=== PATIENT | female | born 1980 | race Caucasian/White ===

== ENCOUNTER → 2018-01-29 | Outpatient (CLI) | payer OTHER ==
--- NOTE | 2018-01-30 06:11 | PAP/PSG TECHNICIAN REPORT ---
[facility] Computer System Specialist Polysomnogram Report Study name: None Report date: 01/30/2018 Study date: 01/29/2018 Referring Physician: Dr. Marcelina Cortez M.D. Name: RADHA SALAZAR Interpreting Physician: Darren Haddad M.D. Date of : 1980 Computer System Specialist: Colleen Penn [facility]. Sex: Female Age: 37 Study Type: PSG Weight: 262 lbs 16 in Height: 37 years, Height 5' 7" Neck Circum: BMI: 41.03 Medications: ATORVASTATIN 40 MG, ACONAZOLE NITRATE 1% CREAM, PROZAC 20 MG, FUROSEMIDE 40 MG, LISINOPRIL 10 MG, METOPROLOL 50 MG, NICODERM CQ 14 MG/24 HR, WARFARIN 5 MG Patient History 37 yr-old female here for a baseline/modified split study (to introduce CPAP if AHI exceeds 15). She has a history of snoring, witnessed apneas, and daytime sleepiness. Her [place] scale is 11. The test was started on room air. ETCO2 testing is included in this study. Room 1 Parameters Monitored NPSG: E1-M2, E2-M1, Fp1-M2, Fp2-M1, F3-M2, F4-M2, F4-M1, C3-M2, C4-M2, C4-M1, O1-M2, O2-M2, O2-M1, T3-M2, T4-M1, P3-M2, P4-M1, CHIN1, CHIN2, HR, EKG, Legs, PFLOW, SNOR, FLOW, CFLOW, Tidal Volume, THOR, ABDO, SpO2, PLTH, CPRESS, ETCO2 Wave, ETCO2, pH Sleep Architecture Sleep Stages Time at Lights Off 10:16:54 PM STAGES Time (min.) TST (%) Time at Lights On 5:19:54 AM Wake 191.5 -- Total Recording Time (TRT) 423.00 min. N1 62.5 27 Total Sleep Period (TSP) 330.0 min. N2 104.5 45 Total Sleep Time (TST) 231.5min. N3 35.0 15 Awake Time 191.5 min. REM 29.5 13 Wake after Sleep Onset 121.5 min. Sleep Efficiency (SE) 55 % Sleep Onset Latency (TONY) 70.0 min. Number of Stage 1 Shifts None Awakenings 19 Stage Changes 71 Number of REM periods 4 REM 29.5 13 REM Latency 117.5 min. NREM 202.0 87 Body Position Analysis Supine Right Left Side Prone Vertical Total Sleep Time (min.) 131.5 38.0 107.5 145.50 36.5 0.0 Total Sleep Time (%) 29% 16% 46% 63 8% N/A% Total Sleep Time REM (min.) 8.5 0.0 21.0 None 0.0 0.0 Total Sleep Time NREM (min.) 58.0 38.0 86.5 None 19.5 0.0 Intermittent Wake (min.) 65.0 27.3 82.2 None 17.0 0.0 Total Sleep Period (%) 27% None None None None None Arousals Myoclonus (PLM) * Events Count Index Events Count Index Spontaneous 15 4 Events Awake (PLMW) 253 79.3 Respiratory 32 8.3 Events Asleep w/ Arousal (PLMA) 29 7.5 PLM 29 8 Events Asleep w/o Arousal (PLMS) 296 76.7 Snoring 10 3 Total Asleep 325 84.2 Total 86 22 Total 578 82 Respiratory Analysis * CA OA MA CH H RERA Total Count 3 14 4 0 48 6 69 Index 0.8 3.6 1.0 0 12.4 2 19.4 Mean Duration 17.9 20.2 23.5 0.00 18.0 17.1 18.6 Longest Duration 22.4 44.6 32.2 0.00 32.2 20.3 44.6 Respiratory Event Summary Total Supine ~Supine Right Left Prone REM NREM Apneas Count 21 20 1 0 1 0 3 18 Index 5.4 18 0 0.0 0.6 0 6 5 Hypopneas (4% Desat) Count 48 37 11 0 9 2 10 38 Index 12.4 33.4 4 0.0 5.0 6.2 20.3 11.3 Apneas & All Hypopneas Count 69 57 12 0 10 2 13 56 Index 17.9 51 4 0 6 6 26.4 16.6 Respiratory Events (Supervisor [employer]+All Hyp+RERA) Count 69 60 15 0 13 2 13 56 Index 19.4 54 5 0.0 7.3 6.2 26.4 18.4 Respiratory Related Arousal Count 32 60 4 0 4 0 7 25 Index 8.3 25 1 0 2 0 14 7 Snoring Analysis Supine Right Left Prone REM NREM Total Snore duration 32.1 min Snores count 293 185 543 174 67 1,128 1,195 Snore mean duration 1.6 Sec Snores index 264 292 303 535 136.3 335.0 309.7 TST with snoring (%) 13.9% SpO2 Analysis Total REM NREM Awake <50% 0.0 min. 0.0 min. 0.0 min. 0.0 min. 51 - 60% 0.0 min. 0.0 min. 0.0 min. 0.0 min. 61 - 70% 0.0 min. 0.0 min. 0.0 min. 0.0 min. 71 - 80% 1.6 min. 1.6 min. 0.0 min. 0.0 min. 81 - 90% 131.4 min. 23.1 min. 83.6 min. 24.7 min. 91 - 100% 278.7 min. 4.7 min. 118.4 min. 155.5 min. Average 91 87 91 92 Minimum SpO2 74 74 84 84 Desaturation Event Index 14.8 36.6 18.4 8.1 # Desat. Events below 89% 46 17 24 5 Time(%) with Saturation below 89% 7.5 4.6 2.8 0.2 Time(min.) with Saturation below 89% 31.1 18.8 11.6 0.7 Heart Rate Analysis End Tidal CO2 Analysis Min (bpm) Max (bpm) Average (bpm) TSP (mins) % of TSP Awake 53 127 80 Above 55 mmHg 0.0 0.0 NREM 52 95 78 50-55 mmHg 0.0 0.0 REM 50 100 76 45-50 mmHg 0.0 0.0 Overall 50 100 78 40-45 mmHg 6.0 2.6 35-40 mmHg 48.1 20.8 30-35 mmHg 11.4 4.9 Average ETCO2 0.0 Supplemental O2 Values Minimum O2 level: None Value Start Time End Time Computer System Specialist Comments Ms. Salazar slept in the right, left, supine and prone positions. Cardiac arrhythmias were noted (please refer to the printouts). PLMs were noted. No bruxism noted. Snoring was noted and scored as a 2 on a scale of 1 through 5. (0=no snoring, 5=snoring loud enough to be heard through a closed door or down the bullard way) She did not meet specific Split-Night criteria during the diagnostic portion of this study. She awoke to use the restroom two times during the night. Ms. Salazar stated that she slept poorly. The final report will be interpreted and signed by a sleep physician. The completed physician report will then be placed in the patient medical record. Therapy (cm H2O) 0 TIB (min.) 423.0 TST (min.) 231.5 Sleep Onset (min.) 70.0 REM Onset From Sleep (min.) 117.5 Sleep Efficiency % 55 Wakefulness (%) 45 Wakefulness (min.) 191.5 NREM 1 (%) 27 NREM 1 (min.) 62.5 NREM 2 (%) 45 NREM 2 (min.) 104.5 NREM 3 (%) 15 NREM 3 (min.) 35.0 REM (%) 13 REM (min.) 29.5 # Arousals 86 Arousal Index 22 # Snore 1,195 Snore Index 309.7 AHI 17.9 AHI Supine 51 AHI Non-Supine 4 NREM AHI 16.6 REM AHI 26.4 RDI 19.4 # Obstructive Apnea 14 # Central Apnea 3 # Mixed Apnea 4 # Hypopneas 48 RERAs 6 Total Respiratory Events 76 Time Below SpO2 89% (min.) 30.4 Mean NREM SpO2 (%) 91 Mean REM SpO2 (%) 87 Mean Sleep SpO2 (%) 90 Min NREM SpO2 (%) 84 Min REM SpO2 (%) 74 Position Supine (min.) 131.5 Position Non-supine (min.) 165.0 LM Index Sleep 84.2 LM Index NREM 90.0 LM Index REM 44.7 Mean Heart Rate (bpm) 78 Min Heart Rate (bpm) 50
--- NOTE | 2018-01-31 11:05 | POLYSOMNOGRAPH REPORT ---
CLINICAL DATA: A 37-year-old female with BMI of [address] Cortez for a possible split night study with a history of snoring, witnessed apnea, and daytime sleepiness. Her [place] sleepiness score is 11/24. SLEEP ARCHITECTURE: Total sleep period was 330 minutes. Total sleep time was 231.5 minutes divided between 202 minutes of non-REM sleep and 29.5 minutes of REM sleep. Sleep latency was delayed at 70 minutes. REM latency was 117.5 minutes. Sleep efficiency was reduced to 55%. Wake after sleep onset was elevated at 121.5 minutes. Sleep consisted of stage N1 27%, stage N2 45%, stage N3 15%, and REM 13%. AROUSAL DATA: 86 arousals were recorded for an index of 22 per hour. 32 were due to respiratory events. 10 were due to snoring events. PLM DATA: Severe elevation of limb movements during sleep were noted. There were 325 limb movements during sleep noted for an index of 84.2 per hour with arousal index of 7.5 per hour. RESPIRATORY DATA: Moderate sleep apnea was documented. The AHI was 17.9. The RDI was 19.4. There were 3 central, 14 obstructive, and 4 mixed apneic episodes. The longest apneic episode was 44.6 seconds. There were 48 hypopneic episodes. The longest duration of hypopnea was 32.2 seconds. There were 6 RERAs. The longest RERA was 20.3 seconds. OXIMETRY DATA: Nocturnal hypoxemia was seen. Oxygen josef was 74% during REM. Mean saturation was 91%. Time below 89% was 31 minutes. EKG: Heart ranged from 52-100 beats per minute. Occasional PACs were noted. ALL AROUND PATTERNMAKER'S COMMENTS: The patient slept in the right, left, supine, and prone positions. PLMs were noted throughout the night. Snoring was mild, rated 2 on a scale of 1-5. The patient did not meet split night criteria early enough during the study to initiate CPAP. IMPRESSION: Moderate sleep apnea/hypopnea with an AHI of 17.9 and an RDI of 19.4 with nocturnal hypoxemia. The patient also had significant PLMD. RECOMMENDATIONS: The patient may benefit from a repeat sleep study with CPAP, use of auto CPAP, or use of an oral appliance. Clinical correlation is needed. GAVIN
== END | disposition home or self-care (01) ==
LOC: C.NEUR 21:00
PROVIDERS: ATTEND Internal Medicine
DX: G47.33 Obstructive sleep apnea (adult) (pediatric) (principal)

== ENCOUNTER → 2018-05-15 | Outpatient (CLI) | payer OTHER ==
--- NOTE | 2018-05-16 05:48 | PAP/PSG TECHNICIAN REPORT ---
[facility] Cabin Agent Polysomnogram Report Study name: None Report date: 05/16/2018 Study date: 05/15/2018 Referring Physician: Dr. Marcelina Cortez M.D. Name: RADHA SALAZAR Interpreting Physician: Marcelina Cortez M.D. Date of : 1980 Cabin Agent: CÉSAR Mercer. Sex: Female Age: 38 StudyType: PSG PAP Weight: 260 lbs Height: 38 years, Height 5' 7" Neck Circum:16 inches BMI: 40.72 Medications: Lipitor 40mg, Prozac 20mg, Lasix 40mg, Prinivil 10mg, Lopressor 50MEQ, Warfarin 5mgNicoderm CQ Patient History Study started on room air with 4cwp cpap in room #8. 38 yr old female here tonight for a new titration study. She has a history of HTN, anxiety, atrial flutter and LINSEY. PSG showed moderate LINSEY. Her ESS=10. Neck circ=16inches. Parameters Monitored NPSG: E1-M2, E2-M1, Fp1-M2, Fp2-M1, F3-M2, F4-M2, F4-M1, C3-M2, C4-M2, C4-M1, O1-M2, O2-M2, O2-M1, T3-M2, T4-M1, P3-M2, P4-M1, CHIN1, CHIN2, HR, EKG, Legs, PFLOW, SNOR, FLOW, CFLOW, Tidal Volume, THOR, ABDO, SpO2, PLTH, CPRESS, ETCO2 Wave, ETCO2, pH Sleep Architecture Sleep Stages Time at Lights Off 9:52:47 PM STAGES Time (min.) TST (%) Time at Lights On 5:42:47 AM Wake 154.5 -- Total Recording Time (TRT) 470.00 min. N1 7.5 2 Total Sleep Period (TSP) 418.5 min. N2 158.0 50 Total Sleep Time (TST) 315.5min. N3 86.5 27 Awake Time 154.5 min. REM 63.5 20 Wake after Sleep Onset 103.0 min. Sleep Efficiency (SE) 67 % Sleep Onset Latency (TONY) 51.5 min. Number of Stage 1 Shifts None Awakenings 20 Stage Changes 55 Number of REM periods 1 REM 63.5 20 REM Latency 355.0 min. NREM 252.0 80 Body Position Analysis Supine Right Left Side Prone Vertical Total Sleep Time (min.) 211.9 176.0 0.0 176.00 0.0 0.0 Total Sleep Time (%) 44% 56% 0% 56 0% N/A% Total Sleep Time REM (min.) 0.0 63.5 0.0 None 0.0 0.0 Total Sleep Time NREM (min.) 139.5 112.5 0.0 None 0.0 0.0 Intermittent Wake (min.) 72.4 44.3 37.8 None 0.0 0.0 Total Sleep Period (%) 46% None None None None None Arousals Myoclonus (PLM) * Events Count Index Events Count Index Spontaneous 8 2 Events Awake (PLMW) 158 61.4 Respiratory 5 1.0 Events Asleep w/ Arousal (PLMA) 10 1.9 PLM 7 2 Events Asleep w/o Arousal (PLMS) 130 24.7 Snoring 3 1 Total Asleep 140 26.6 Total 23 4 Total 298 38 Respiratory Analysis * CA OA MA CH H RERA Total Count 3 3 1 0 5 1 12 Index 0.6 0.6 0.2 0 1.0 0 2.5 Mean Duration 17.1 15.7 18.1 0.00 28.6 18.6 21.4 Longest Duration 17.5 19.2 18.1 0.00 18.1 18.6 41.3 Respiratory Event Summary Total Supine ~Supine Right Left Prone REM NREM Apneas Count 7 3 4 4 N/A N/A 0 7 Index 1.3 1 1 1.4 N/A N/A 0 2 Hypopneas (4% Desat) Count 5 4 1 1 N/A N/A 0 5 Index 1.0 1.7 0 0.3 N/A N/A 0.0 1.2 Apneas & All Hypopneas Count 12 7 5 5 N/A N/A 0 12 Index 2.3 3 2 2 N/A N/A 0.0 2.9 Respiratory Events (Lead Technical Architect+All Hyp+RERA) Count 12 8 5 5 N/A N/A 0 12 Index 2.5 3 2 1.7 N/A N/A 0.0 3.1 Respiratory Related Arousal Count 5 8 2 2 N/A N/A 0 5 Index 1.0 1 1 1 N/A N/A 0 1 Snoring Analysis Supine Right Left Prone REM NREM Total Snore duration 15.3 min Snores count 717 144 N/A N/A 6 855 861 Snore mean duration 1.1 Sec Snores index 308 49 N/A N/A 5.7 203.6 163.7 TST with snoring (%) 4.9% Desaturation Event Summary: Minimum %SpO2 Event Count Mean/Min/Max Duration(sec.) Desaturation Index % Time In Bed > 90 16 36.4 / 12.0 / 59.5 5.2 41.0 86 - 90 10 34.9 / 12.5 / 60.0 2.5 53.8 81 - 85 1 19.5 / 19.5 / 19.5 2.6 5.1 76 - 80 0 N/A 0.0 0.0 71 - 75 0 N/A 0.0 0.0 66 - 70 0 N/A 0.0 0.0 61 - 65 0 N/A 0.0 0.0 56 - 60 0 N/A 0.0 0.0 51 - 55 0 N/A 0.0 0.0 < 50 0 N/A 0.0 0.0 Total REM NREM Awake <50% 0.0 min. 0.0 min. 0.0 min. 0.0 min. 51 - 60% 0.0 min. 0.0 min. 0.0 min. 0.0 min. 61 - 70% 0.0 min. 0.0 min. 0.0 min. 0.0 min. 71 - 80% 0.0 min. 0.0 min. 0.0 min. 0.0 min. 81 - 90% 267.1 min. 2.2 min. 206.4 min. 58.4 min. 91 - 100% 185.9 min. 61.3 min. 44.6 min. 80.0 min. Average 90 92 88 91 Minimum SpO2 80 89 83 80 Desaturation Event Index 2.6 0.0 2.1 4.3 # Desat. Events below 89% 14 N/A 8 6 Time(%) with Saturation below 89% 34.6 0.0 29.8 4.8 Time(min.) with Saturation below 89% 156.5 0.0 134.9 21.6 Time (mins) REM (mins) NREM (mins) % of TST SpO2 Below 90% 9 N/A N9 57.1 SpO2 Below 88% 4 0 0 24 Heart Rate Analysis Min (bpm) Max (bpm) Average (bpm) Awake 49 132 60 NREM 48 127 56 REM 48 73 57 Overall 48 127 56 Supplemental O2 Values Minimum O2 level: None Value Start Time End Time Cabin Agent Comments Ms. Salazar slept in the right, left and supine positions. Cardiac arrhythmia and PLM's noted, please see print outs. No bruxism noted. CPAP was initiated at +4 CMH2O and up-titrated to a level of +12 CMH2O. Most increases in pressure were needed to prevent loud snoring. One liter of oxygen was added at 5:07am. The AHI on 12cwp was 3.0 for a total of 123.7 minutes. Her oxygen saturation was below 89% for a total of 63.3 minutes at this setting. A small Simplus full face mask by Annmarie was used during titration. She awoke to use the restroom 3 times during the night. She stated that she slept about the same as usual. The final report will be interpreted and signed by a sleep physician. The completed physician report will then be placed in the patient medical record. Therapy Event: Therapy (cm H20) 4 6 7 8 10 12 Total Time at Pressure (min.) 66.3 48.2 8.5 28.5 157.8 160.7 TST at Pressure (min.) 8.8 18.2 8.5 26.0 98.3 155.7 # Periods 1 1 1 1 1 1 Sleep Onset (min.) 51.5 0.0 0.0 0.0 0.0 0.0 REM Onset (min.) N/A N/A N/A N/A N/A 97.2 Sleep Efficiency % 13 37 100 91 62 96 Wakefulness (%) 86.7 62.2 0.0 8.8 37.7 3.1 Wakefulness (min.) 57.5 30.0 0.0 2.5 59.5 5.0 NREM 1 (%) 6.0 5.2 0.0 0.0 0.6 0.0 NREM 1 (min.) 4.0 2.5 0.0 0.0 1.0 0.0 NREM 2 (%) 7.2 32.6 100.0 24.4 38.9 37.8 NREM 2 (min.) 4.8 15.7 8.5 7.0 61.3 60.7 NREM 3 (%) 0.0 0.0 0.0 66.8 22.8 19.6 NREM 3 (min.) 0.0 0.0 0.0 19.0 36.0 31.5 REM (%) 0.0 0.0 0.0 0.0 0.0 39.5 REM (min.) 0.0 0.0 0.0 0.0 0.0 63.5 # Arousals 2 3 0 1 6 11 Arousal Index 13.6 9.9 0.0 2.3 3.7 4.2 # Snore 37 58 153 308 175 130 Snore Index 252.1 191.2 1,076.1 710.6 106.9 50.1 AHI 6.8 3.3 0.0 2.3 2.4 1.9 AHI Supine N/A 0.0 0.0 2.3 7.9 3.1 AHI Non-Supine 6.8 11.6 N/A N/A 1.4 0.8 NREM AHI 6.8 3.3 0.0 2.3 2.4 3.3 REM AHI N/A N/A N/A N/A N/A 0.0 RDI 6.8 3.3 0.0 2.3 2.4 2.3 # Obstructive 1 1 0 0 0 1 # Central Ap 0 0 0 0 3 0 # Mixed 0 0 0 0 0 1 # Hypopneas 0 0 0 1 1 3 RERAS 0 0 0 0 0 1 Total Respiratory Events 1 1 0 1 4 6 Time Below SpO2 89.00% (min.) 6.0 3.9 0.0 0.5 61.3 63.3 Mean NREM SpO2 (%) 89 91 90 91 88 88 Mean REM SpO2 (%) N/A N/A N/A N/A N/A 92 Mean Sleep SpO2 (%) 89 91 90 91 88 90 Min NREM SpO2 (%) 86 86 89 87 83 85 Min REM SpO2 (%) N/A N/A N/A N/A N/A 89 Position Supine (min.) 0.0 13.0 8.5 26.0 15.3 76.7 Position Non-supine (min.) 8.8 5.2 0.0 0.0 83.0 79.0 LM Index Sleep 68.1 39.6 84.4 48.4 25.0 17.0 LM Index NREM 68.1 39.6 84.4 48.4 25.0 16.9 LM Index REM N/A N/A N/A N/A N/A 17.0 Mean Heart Rate (bpm) 62 57 54 55 57 56 Min Heart Rate (bpm) 54 51 52 51 48 48
== END | disposition home or self-care (01) ==
LOC: C.NEUR 21:00
PROVIDERS: ATTEND Internal Medicine
DX: G47.33 Obstructive sleep apnea (adult) (pediatric) (principal); I10 Essential (primary) hypertension

== ENCOUNTER 2025-08-24 11:10 | Inpatient (IN) ==
[2025-08-24 12:01] LABS: Hematocrit (blood only) 47.4 % (37.0-47.0); Hemoglobin 14.9 g/dl (12.0-16.0); Immature Granulocytes # (auto) 0.01 K/uL (0.01-0.20); Immature Granulocytes % (auto) 0.1 %; Mean Corpuscular Hemoglobin 30.4 pg (25.0-34.0); Mean Corpuscular Volume 96.7 fL (80.0-100.0); Platelet Count 251 K/uL (130-400); RDW Standard Deviation 56.0 fL (36.4-46.3); Red Blood Count 4.90 M/uL (4.20-5.40); White Blood Count 7.27 K/ul (4.8-10.8)
[2025-08-24] MEDS: ALBUT/IPRATROP 3MG/0.5MG NEB 3 ML VIAL NEB STA (12:13)
[2025-08-24] MEDS: guaiFENesin 600 MG TABCR PO STA (12:14)
--- NOTE | 2025-08-24 12:14 | Emergency Department Note ---
Impression & Plan Acute on chronic HFrEF (heart failure with reduced ejection fraction), COPD (chronic obstructive pulmonary disease), Permanent atrial fibrillation, Elevated troponin ED Provider Note NAME: RADHA TA AGE: 45 SEX: F : 1980 ARRIVES VIA: Walk-In INFORMANT: Patient ED PROVIDER(S): Lucas Quispe MD CHIEF COMPLAINT: Shortness of breath PLAN: Disposition: Admit MEDICAL DECISION MAKING: The patient is a pleasant 45-year-old woman with past medical history of CAD with history of PCI, atrial fibrillation on Eliquis, COPD, everyday smoking who presents to the Emergency Department via walk-in clinic by her aunt for worsening cough, congestion and shortness of breath over the past several weeks. Patient denies chest pain. She reports she does take Lasix but does not necessarily feel she is retaining fluid though her aunt feels her legs are more swollen. Patient denies any fevers. She denies productive sputum. Patient reports that she attempted to get her inhaler refilled by her pharmacy but was told they could not refill it due to it being too long since she last refilled it. Patient reports she did not reach out to her primary care doctor after that. On evaluation patient no distress, afebrile with heart in the 110s and atrial fibrillation and vital signs otherwise stable. She appears hypervolemic with 1+ bilateral lower extremity pitting edema. She exhibits wheezes of bilateral lung lundberg with rales of bilateral posterior lung lundberg. Normal respiratory effort. EKG demonstrates atrial fibrillation with RVR without overt ST elevation or depression. Chest x-ray demonstrates congestive change with possible right basilar infiltrate per my preliminary independent interpretation. Patient was treated with a guaifenesin, Solu-Medrol and DuoNeb for component of bronchospasm/COPD and had experienced an episode of nonsustained wide-complex tachycardia suggestive of NSVT vs A-fib with aberrancy. Patient was reportedly asymptomatic. However the patient was removed from her D pod room to B pod for closer hemodynamic monitoring. WBC within normal limits without neutrophilia or left shift. Hemoglobin and platelets within normal limits. Chemistry without metabolic acidosis. Creatinine 1.3 without prior for comparison. Total bili 1.8, nonspecific and otherwise LFTs unremarkable. High-sensitivity troponin 20.8, and BNP at 1800 nonspecific in setting of patient's ongoing A-fib with RVR and hypervolemic appearance. Procalcitonin is not elevated. Respiratory BioFire was negative. Additional treatment initiated with IV Lasix. Patient was referred to the hospital service for further management. Case was discussed with Emma Duenas, [facility], with Dr. Jensen [facility] hospitalist who will evaluate the patient for admission. Triage Nursing notes reviewed and agree them. Prior/external medical records reviewed Vital Signs: reviewed Differential diagnosis: Reactive airway disease, pneumonia, pneumothorax, COPD, CHF, infections, cardiac ischemia, pulmonary embolism, musculoskeletal, gastrointestinal, as well as other pathologies. ER treatment provided: See below. Diagnostics interpreted by me: ECG: Atrial fibrillation with RVR, 113 bpm, no overt ST elevation or depression, QTc 471, QRS 94. Cardiac Monitoring: An order for continuous cardiac monitoring was placed and demonstrated atrial fibrillation with RVR, 113 bpm, single episode of nonsustained wide-complex tachycardia suggestive of NSVT vs A-fib with aberrancy. Laboratory studies: See below Imaging studies: See below Consultation(s): Emma Duenas [facility], with Dr. Jensen [facility] hospitaltanisha HPI: Per MDM. ROS: See above HPI for pertinent positives & negatives. A total of 10 systems reviewed and were otherwise negative. VITALS:See Below PHYSICAL EXAMINATION: GENERAL: Awake, alert, in no distress, BMI 45.9 HENT: Normocephalic, atraumatic. Oropharynx unremarkable. EYES: Normal conjunctiva. Sclera non-icteric. NECK: Supple. No nuchal rigidity. FROM. No JVD. RESPIRATORY: Wheezes of bilateral lung lundberg with rales of bilateral posterior lung lundberg. Normal respiratory effort. CARDIAC: Regular rate, irregular rhythm. Extremities warm and well perfused. Pulses equal. ABDOMEN: Soft, non-distended. No tenderness to palpation. No rebound or guarding. No masses. MUSCULOSKELETAL: Chest examination reveals no tenderness. The back is symmetrical on inspection without obvious abnormality. There is no CVA tenderness to palpation. No joint edema. LOWER EXTREMITIES: Calves are equal size bilaterally and non-tender. 1+ BLE pitting edema. No discoloration. NEURO: Normal sensorium. No sensory or motor deficits noted. SKIN: No rash or jaundice noted. Lucas Quispe MD Past Med/Surg History Problem List (Updated 08/24/25 @ 21:54 by Lucas Quispe MD) Elevated troponin (Acute) Permanent atrial fibrillation (Acute) COPD (chronic obstructive pulmonary disease) (Acute) Acute on chronic HFrEF (heart failure with reduced ejection fraction) (Acute) Medical History Anxiety COPD (chronic obstructive pulmonary disease) Tobacco use Morbid obesity LINSEY (obstructive sleep apnea) Permanent atrial fibrillation Chronic HFrEF (heart failure with reduced ejection fraction) Dilated cardiomyopathy HTN (hypertension) Dyslipidemia CAD (coronary artery disease) Surgical History History of cardiac catheterization History of tonsillectomy and adenoidectomy Family History Other Hypertension Stroke Social History Smoking Status: Current every day smoker Tobacco Type: Cigarettes Cigarettes Per Day: 1 ppd; Hx Alcohol Use: No Hx Substance Use: No Feels Safe at Home: Yes Allergies Allergies Allergy/AdvReac Type Severity Reaction Status Date / Time No Known Allergies Allergy Unverified 08/24/25 14:00 Home Meds Home Medications Medication Instructions Recorded Confirmed apixaban 5 mg tablet (Eliquis) 5 mg PO BID 08/24/25 08/24/25 atorvastatin 80 mg tablet 80 mg PO DAILY 08/24/25 08/24/25 clopidogrel 75 mg tablet 75 mg PO DAILY 08/24/25 08/24/25 digoxin 250 mcg (0.25 mg) tablet 0 mcg PO DAILY 08/24/25 08/24/25 empagliflozin 10 mg tablet 0 mg PO DAILY 08/24/25 08/24/25 (Jardiance) fluoxetine 20 mg capsule 20 mg PO DAILY 08/24/25 08/24/25 furosemide 40 mg tablet 40 mg PO BID 08/24/25 08/24/25 metoprolol succinate 100 mg 100 mg PO DAILY 08/24/25 08/24/25 tablet,extended release 24 hr sacubitril 24 mg-valsartan 26 mg 1 tab PO BID 08/24/25 08/24/25 tablet (Entresto) spironolactone 25 mg tablet 12.5 mg PO DAILY 08/24/25 08/24/25 Results & Data (ED) Vital Signs Vital Signs - 24 hr 08/24/25 11:17 08/24/25 11:31 08/24/25 11:48 Temperature 36.4 C L Temperature Source Oral Pulse Rate 112 H 92 H Pulse Rate [Apical] Pulse Rate from SpO2 Sensor 94 H Respiratory Rate 20 22 Respiratory Effort / Characteristics Spontaneous Respiratory Pattern Regular Blood Pressure 116/77 Blood Pressure [Right Arm] Blood Pressure Mean 90 Blood Pressure Mean [Right Arm] Pulse Oximetry 94 93 93 Oxygen Delivery Method Room Air Room Air Sepsis Recent Fever Within 48 Hours No Sepsis New/Unexplained Change in Mental Status N/A Sepsis Action Taken by Nursing No Action Required 08/24/25 11:54 08/24/25 12:00 08/24/25 12:00 Temperature Temperature Source Pulse Rate 83 Pulse Rate [Apical] Pulse Rate from SpO2 Sensor 91 H Respiratory Rate 30 H Respiratory Effort / Characteristics Respiratory Pattern Blood Pressure 131/91 131/91 Blood Pressure [Right Arm] Blood Pressure Mean 97 97 Blood Pressure Mean [Right Arm] Pulse Oximetry 93 Oxygen Delivery Method Sepsis Recent Fever Within 48 Hours Sepsis New/Unexplained Change in Mental Status Sepsis Action Taken by Nursing 08/24/25 12:00 08/24/25 12:00 08/24/25 12:00 Temperature Temperature Source Pulse Rate Pulse Rate [Apical] Pulse Rate from SpO2 Sensor Respiratory Rate Respiratory Effort / Characteristics Respiratory Pattern Blood Pressure 131/91 131/91 131/91 Blood Pressure [Right Arm] Blood Pressure Mean 97 97 97 Blood Pressure Mean [Right Arm] Pulse Oximetry Oxygen Delivery Method Sepsis Recent Fever Within 48 Hours Sepsis New/Unexplained Change in Mental Status Sepsis Action Taken by Nursing 08/24/25 12:03 08/24/25 12:31 08/24/25 12:39 Temperature Temperature Source Pulse Rate 95 H 83 Pulse Rate [Apical] Pulse Rate from SpO2 Sensor 94 H 95 H Respiratory Rate 19 23 Respiratory Effort / Characteristics Respiratory Pattern Blood Pressure 123/91 Blood Pressure [Right Arm] Blood Pressure Mean 96 Blood Pressure Mean [Right Arm] Pulse Oximetry 93 92 Oxygen Delivery Method Sepsis Recent Fever Within 48 Hours Sepsis New/Unexplained Change in Mental Status Sepsis Action Taken by Nursing 08/24/25 13:00 08/24/25 13:06 08/24/25 13:07 Temperature Temperature Source Pulse Rate 101 H 109 H Pulse Rate [Apical] Pulse Rate from SpO2 Sensor 112 H 117 H Respiratory Rate 21 28 H Respiratory Effort / Characteristics Respiratory Pattern Blood Pressure 131/94 Blood Pressure [Right Arm] Blood Pressure Mean 109 Blood Pressure Mean [Right Arm] Pulse Oximetry 93 90 Oxygen Delivery Method Sepsis Recent Fever Within 48 Hours Sepsis New/Unexplained Change in Mental Status Sepsis Action Taken by Nursing 08/24/25 13:07 08/24/25 13:07 08/24/25 13:11 Temperature Temperature Source Pulse Rate Pulse Rate [Apical] 91 H Pulse Rate from SpO2 Sensor Respiratory Rate 20 Respiratory Effort / Characteristics Respiratory Pattern Blood Pressure 131/94 131/94 Blood Pressure [Right Arm] 120/101 H Blood Pressure Mean 109 109 Blood Pressure Mean [Right Arm] 107 Pulse Oximetry 90 Oxygen Delivery Method Room Air Sepsis Recent Fever Within 48 Hours Sepsis New/Unexplained Change in Mental Status Sepsis Action Taken by Nursing 08/24/25 13:27 08/24/25 13:30 08/24/25 13:42 Temperature Temperature Source Pulse Rate 103 H 96 H Pulse Rate [Apical] Pulse Rate from SpO2 Sensor 102 H Respiratory Rate 25 H Respiratory Effort / Characteristics Respiratory Pattern Blood Pressure 120/101 H Blood Pressure [Right Arm] Blood Pressure Mean 110 Blood Pressure Mean [Right Arm] Pulse Oximetry 90 Oxygen Delivery Method Sepsis Recent Fever Within 48 Hours Sepsis New/Unexplained Change in Mental Status Sepsis Action Taken by Nursing 08/24/25 14:00 08/24/25 14:01 08/24/25 14:01 Temperature Temperature Source Pulse Rate 96 H Pulse Rate [Apical] Pulse Rate from SpO2 Sensor 101 H Respiratory Rate 22 Respiratory Effort / Characteristics Respiratory Pattern Blood Pressure 152/122 H 152/122 H Blood Pressure [Right Arm] Blood Pressure Mean 134 134 Blood Pressure Mean [Right Arm] Pulse Oximetry 92 Oxygen Delivery Method Sepsis Recent Fever Within 48 Hours Sepsis New/Unexplained Change in Mental Status Sepsis Action Taken by Nursing 08/24/25 14:01 08/24/25 14:06 08/24/25 14:26 Temperature Temperature Source Pulse Rate 115 H Pulse Rate [Apical] Pulse Rate from SpO2 Sensor 114 H Respiratory Rate 20 Respiratory Effort / Characteristics Respiratory Pattern Blood Pressure 152/122 H 130/102 H Blood Pressure [Right Arm] Blood Pressure Mean 134 122 Blood Pressure Mean [Right Arm] Pulse Oximetry 91 Oxygen Delivery Method Sepsis Recent Fever Within 48 Hours Sepsis New/Unexplained Change in Mental Status Sepsis Action Taken by Nursing 08/24/25 14:30 08/24/25 14:30 Temperature Temperature Source Pulse Rate Pulse Rate [Apical] Pulse Rate from SpO2 Sensor Respiratory Rate Respiratory Effort / Characteristics Respiratory Pattern Blood Pressure 131/105 H 131/105 H Blood Pressure [Right Arm] Blood Pressure Mean 116 116 Blood Pressure Mean [Right Arm] Pulse Oximetry Oxygen Delivery Method Sepsis Recent Fever Within 48 Hours Sepsis New/Unexplained Change in Mental Status Sepsis Action Taken by Nursing Laboratory Data Attestation: I reviewed the patient's lab results. 08/24/25 11:34 08/24/25 11:34 Lab Results 08/24/25 08/24/25 08/24/25 Range/Units 11:34 11:43 12:15 WBC 7.27 (4.8-10.8) K/ul RBC 4.90 (4.20-5.40) M/uL Hgb 14.9 (12.0-16.0) g/dl Hct 47.4 H (37.0-47.0) % MCV 96.7 (80.0-100.0) fL MCH 30.4 (25.0-34.0) pg MCHC 31.4 L (32.0-36.0) g/dL RDW Std Deviation 56.0 H (36.4-46.3) fL RDW Coeff of Neal 15.7 H (11.5-14.5) % Plt Count 251 (130-400) K/uL MPV 10.0 (9.4-12.4) fL Immature Gran % (Auto) 0.1 % Neut % (Auto) 71.0 % Lymph % (Auto) 20.6 % [place] % (Auto) 6.7 % Eos % (Auto) 1.2 % Baso % (Auto) 0.4 % Neut # (Auto) 5.15 (1.40-6.50) K/uL Lymph # (Auto) 1.50 (1.20-3.40) K/uL [place] # (Auto) 0.49 (0.11-0.59) K/uL Eos # (Auto) 0.09 (0.00-0.50) K/uL Baso # (Auto) 0.03 (0.00-0.20) K/uL Immature Gran # (Auto) 0.01 (0.01-0.20) K/uL PT 11.1 (9.0-12.0) Seconds INR 1.1 (0.9-1.1) Sodium 141 (136-145) mmol/L Potassium 4.2 (3.5-5.1) mmol/L Chloride 104 (98-107) mmol/L Carbon Dioxide 30 (21-32) mmol/L Anion Gap 7 (3-11) BUN 20 (6-23) mg/dl Creatinine 1.30 H (0.6-1.2) mg/dl Est Cr Clr Drug Dosing 71.1 ml/min eGFR 51.04 BUN/Creatinine Ratio 15.4 (10-20) Glucose 102 H (70-99(Fasting)) mg/dl Calcium 9.4 (8.6-10.3) mg/dl Magnesium 2.1 (1.7-2.4) mg/dl Total Bilirubin 1.8 H (0.2-1.0) mg/dl AST 17 (13-39) U/L ALT 22 (7-52) U/L Alkaline Phosphatase 89 (34-104) U/L Troponin I High Sens 20.8 H (0-14) pg/ml B-Natriuretic Peptide 1804 H (0-100) pg/ml Total Protein 7.6 (6.0-8.3) gm/dl Albumin 4.2 (3.4-5.0) gm/dl Globulin 3.4 (2.5-4.0) gm/dl Albumin/Globulin Ratio 1.2 (0.9-2) Lipase 13 (11-82) U/L Procalcitonin < 0.02 (0-0.5) ng/ml Adenovirus (PCR) Not Detected (NotDetected) B. pertussis DNA (PCR) Not Detected (NotDetected) B.parapertussis DNA PCR Not Detected (NotDetected) C. pneumoniae DNA (PCR) Not Detected (NotDetected) Coronavirus OC43 (PCR) Not Detected (NotDetected) Coronavirus HKU1 (PCR) Not Detected (NotDetected) Coronavirus 229E (PCR) Not Detected (NotDetected) SARS-CoV-2 (PCR) Not Detected (NotDetected) Coronavirus NL63 (PCR) Not Detected (NotDetected) Human Metapneumovir PCR Not Detected (NotDetected) Influenza Type A (PCR) Not Detected (NotDetected) Influenza Type B (PCR) Not Detected (NotDetected) M. pneumoniae (PCR) Not Detected (NotDetected) Parainfluenza 1 (PCR) Not Detected (NotDetected) Parainfluenza 2 (PCR) Not Detected (NotDetected) Parainfluenza 3 (PCR) Not Detected (NotDetected) Parainfluenza 4 (PCR) Not Detected (NotDetected) RSV (PCR) Not Detected (NotDetected) Entero/Rhino (PCR) Not Detected (NotDetected) 08/24/25 Range/Units 14:14 WBC (4.8-10.8) K/ul RBC (4.20-5.40) M/uL Hgb (12.0-16.0) g/dl Hct (37.0-47.0) % MCV (80.0-100.0) fL MCH (25.0-34.0) pg MCHC (32.0-36.0) g/dL RDW Std Deviation (36.4-46.3) fL RDW Coeff of Neal (11.5-14.5) % Plt Count (130-400) K/uL MPV (9.4-12.4) fL Immature Gran % (Auto) % Neut % (Auto) % Lymph % (Auto) % [place] % (Auto) % Eos % (Auto) % Baso % (Auto) % Neut # (Auto) (1.40-6.50) K/uL Lymph # (Auto) (1.20-3.40) K/uL [place] # (Auto) (0.11-0.59) K/uL Eos # (Auto) (0.00-0.50) K/uL Baso # (Auto) (0.00-0.20) K/uL Immature Gran # (Auto) (0.01-0.20) K/uL PT (9.0-12.0) Seconds INR (0.9-1.1) Sodium (136-145) mmol/L Potassium (3.5-5.1) mmol/L Chloride (98-107) mmol/L Carbon Dioxide (21-32) mmol/L Anion Gap (3-11) BUN (6-23) mg/dl Creatinine (0.6-1.2) mg/dl Est Cr Clr Drug Dosing ml/min eGFR BUN/Creatinine Ratio (10-20) Glucose (70-99(Fasting)) mg/dl Calcium (8.6-10.3) mg/dl Magnesium (1.7-2.4) mg/dl Total Bilirubin (0.2-1.0) mg/dl AST (13-39) U/L ALT (7-52) U/L Alkaline Phosphatase (34-104) U/L Troponin I High Sens 17.2 H (0-14) pg/ml B-Natriuretic Peptide (0-100) pg/ml Total Protein (6.0-8.3) gm/dl Albumin (3.4-5.0) gm/dl Globulin (2.5-4.0) gm/dl Albumin/Globulin Ratio (0.9-2) Lipase (11-82) U/L Procalcitonin (0-0.5) ng/ml Adenovirus (PCR) (NotDetected) B. pertussis DNA (PCR) (NotDetected) B.parapertussis DNA PCR (NotDetected) C. pneumoniae DNA (PCR) (NotDetected) Coronavirus OC43 (PCR) (NotDetected) Coronavirus HKU1 (PCR) (NotDetected) Coronavirus 229E (PCR) (NotDetected) SARS-CoV-2 (PCR) (NotDetected) Coronavirus NL63 (PCR) (NotDetected) Human Metapneumovir PCR (NotDetected) Influenza Type A (PCR) (NotDetected) Influenza Type B (PCR) (NotDetected) M. pneumoniae (PCR) (NotDetected) Parainfluenza 1 (PCR) (NotDetected) Parainfluenza 2 (PCR) (NotDetected) Parainfluenza 3 (PCR) (NotDetected) Parainfluenza 4 (PCR) (NotDetected) RSV (PCR) (NotDetected) Entero/Rhino (PCR) (NotDetected) Administered Medications Apixaban (Apixaban 5 Mg Tablet) 5 mg PO BID ROLAND Stop: 09/23/25 20:59 Last Admin: 08/24/25 20:59 Dose: 5 mg Documented By: PAG Clopidogrel Bisulfate (Clopidogrel Bisulfate 75 Mg Tab) 75 mg PO DAILY ROLAND Stop: 09/23/25 17:14 Last Admin: 08/24/25 20:06 Dose: 75 mg Documented By: ANTONIA Furosemide (Furosemide 40 Mg/4 Ml Vial) 40 mg IV [id number] ROLAND Stop: 09/23/25 17:14 Last Admin: 08/24/25 20:06 Dose: 40 mg Documented By: ANTONIA Guaifenesin (Guaifenesin 600 Mg Tabcr) 600 mg PO Q12 ROLAND Stop: 09/23/25 20:59 Last Admin: 08/24/25 20:59 Dose: 600 mg Documented By: ANTONIA Nicotine (Nicotine 21 Mg/24 Hr Tdsy) 1 patch TD QAM ROLAND Stop: 09/23/25 17:06 Last Admin: 08/24/25 20:05 Dose: 1 patch Documented By: ANTONIA Discontinued Medications Albuterol (Albut/Ipratrop 3mg/0.5mg Neb 3 Ml Vial) 3 ml NEB NOW STA; Protocol Stop: 08/24/25 12:08 Last Admin: 08/24/25 12:13 Dose: 3 ml Documented By: KO Apixaban (Apixaban 5 Mg Tablet) 5 mg PO ONE ONE Stop: 08/24/25 14:55 Last Admin: 08/24/25 15:19 Dose: 5 mg Documented By: JHON Furosemide (Furosemide 40 Mg/4 Ml Vial) 40 mg IV ONE ONE Stop: 08/24/25 13:44 Last Admin: 08/24/25 14:25 Dose: 40 mg Documented By: anna Guaifenesin (Guaifenesin 600 Mg Tabcr) 1,200 mg PO NOW STA Stop: 08/24/25 12:06 Last Admin: 08/24/25 12:14 Dose: 1,200 mg Documented By: KO Methylprednisolone (Methylprednisolone 125 Mg/2 Ml Vial) 125 mg IV NOW STA Stop: 08/24/25 12:06 Last Admin: 08/24/25 12:14 Dose: 125 mg Documented By: KO Metoprolol Succinate (Metoprolol Succ 50mg Ext Rel Tab) 100 mg PO NOW STA Stop: 08/24/25 14:55 Last Admin: 08/24/25 15:19 Dose: 100 mg Documented By: JHON Potassium Chloride (Potassium Chloride 10 Meq Tabcr) 10 meq PO NOW ONE Stop: 08/24/25 17:08 Last Admin: 08/24/25 20:06 Dose: 10 meq Documented By: ANTONIA Potassium Chloride (Potassium Chloride 10 Meq Tabcr) Confirm Administered Dose 10 meq PO .STK-MED ONE Stop: 08/24/25 20:03 Last Admin: 08/24/25 20:07 Dose: Not Given Documented By: ANTONIA Imaging Data Radiologist's Impression: Chest X-Ray 08/24/25 11:40 XR chest 1V portable CLINICAL HISTORY: Chest pain, nonspecific COMPARISON STUDY: None FINDINGS: There is prominent cardiomegaly with mild pulmonary vascular congestion. There is hazy opacity at the right lung base. Otherwise the lungs remain aerated. IMPRESSION: 1. CHF. 2. Hazy opacity at the right lung base could represent artifact from overlying soft tissue, atelectasis, or pneumonia. ACT 112: Negative or not required by law. Electronically signed by: Alli Blunt M.D. 08/24/2025 12:50 PM Discharge Plan Visit Data Chief Complaint: Shortness of Breath/Dyspnea Stated Complaint: BREATHING DIFFICULTY ED Provider: Lucas Quispe Discharge Problem: Acute on chronic HFrEF (heart failure with reduced ejection fraction), COPD (chronic obstructive pulmonary disease), Permanent atrial fibrillation, Elevated troponin Patient Disposition: Admitted As Inpatient Condition: Serious Discharge Instructions Interventions: ED Discharge Assessment Last Done: 08/24/25 17:10 Discharge Problem: COPD (chronic obstructive pulmonary disease) Qualifiers: COPD type: unspecified COPD Qualified Code(s): J44.9 - Chronic obstructive pulmonary disease, unspecified
[2025-08-24 12:21] LABS: Alanine Aminotransferase 22.0 U/L (7-52); Albumin Globulin Ratio 1.2 (0.9-2); Albumin Level 4.2 gm/dl (3.4-5.0); Alkaline Phosphatase 89.0 U/L (34-104); Anion Gap 7.0 (3-11); Bilirubin,Total 1.8 mg/dl (0.2-1.0); Blood Urea Nitrogen 20.0 mg/dl (6-23); Calcium 9.4 mg/dl (8.6-10.3); Carbon Dioxide 30.0 mmol/L (21-32); Chloride 104.0 mmol/L (98-107); Creatinine Clr Calc Pharmacy 71.1 ml/min; Globulin 3.4 gm/dl (2.5-4.0); Glucose 102.0 mg/dl (70-99(Fasting)); Lipase 13.0 U/L (11-82); Magnesium 2.1 mg/dl (1.7-2.4); Potassium 4.2 mmol/L (3.5-5.1); Sodium 141.0 mmol/L (136-145); Total Protein 7.6 gm/dl (6.0-8.3)
[2025-08-24 12:33] LABS: INR 1.1 (0.9-1.1); Prothrombin Time 11.1 Seconds (9.0-12.0)
[2025-08-24 12:44] LABS: Chlamydia pneumoniae PCR Not Detected (NotDetected); Coronavirus 229E PCR Not Detected (NotDetected); Coronavirus CoV-2 (COVID19)PCR Not Detected (NotDetected); Coronavirus HKU1 PCR Not Detected (NotDetected); Coronavirus NL63 PCR Not Detected (NotDetected); Coronavirus OC43PCR Not Detected (NotDetected); Human Metapneumovirus PCR Not Detected (NotDetected); Parainfluenza Virus 1 PCR Not Detected (NotDetected); Parainfluenza Virus 2 PCR Not Detected (NotDetected); Parainfluenza Virus 3 PCR Not Detected (NotDetected); Parainfluenza Virus 4 PCR Not Detected (NotDetected); Respiratory Syncytial VirusPCR Not Detected (NotDetected); Rhinovirus/Enterovirus PCR Not Detected (NotDetected)
--- NOTE | 2025-08-24 12:51 | XRay Report ---
XR chest 1V portable CLINICAL HISTORY: Chest pain, nonspecific COMPARISON STUDY: None FINDINGS: There is prominent cardiomegaly with mild pulmonary vascular congestion. There is hazy opac ity at the right lung base. Otherwise the lungs remain aerated. IMPRESSION: 1. CHF. 2. Hazy opacity at the right lung base could represent artifact from overlying soft tissue, atelectas is, or pneumonia. ACT 112: Negative or not required by law. Electronically signed by: Alli Blunt M.D. 08/24/2025 12:50 PM
[2025-08-24] MEDS: FUROSEMIDE 40 MG/4 ML VIAL IV ONE (14:25)
--- NOTE | 2025-08-24 14:32 | History & Physical Report ---
Date of Service August 24, 2025 Assessment & Plan (1) Acute on chronic HFrEF (heart failure with reduced ejection fraction): (2) CAD (coronary artery disease): (3) Dilated cardiomyopathy: Plan: Patient is 45 year old female with PMH CAD s/p PCI stent of LAD and second diagonal branch in 2005 at [place], NSTEMI s/p PCI LDA, RPL, RCA in 08/2024, permanent atrial fibrillation anticoagulated on Eliquis Chronic HFrEF, dilated cardiomyopathy, Right MCA CVA in 2018, HTN, dyslipidemia, COPD, LINSEY CPAP with 1L oxygen, tobacco use, history medication noncompliance presented to ER with c/o SOB x several weeks. In ER afebrile, P: 112, R: 20,BP: 116/77, 94% on RA Repeat vitals P: 96, BP: 120/101, R: 20, 90% on RA No leukocytosis, negative procalcitonin. BNP: 1804 Troponin: 20.8, 17 CXR: CHF. Hazy opacity at the right lung base In ER given Lasix 40mg IV, solumedrol 125mg IV, albuterol neb, guaifenesin Echo: 09/11/22: EF: 20-24% Echo: 09/22/24: EF: 25-29%, diffuse hypokinesis, right ventricular cavity mildly dilated, mild mitral regurgitation [facility] [place] hospitalization 09/21/24-09/23/24 for NSTEMI s/p PCI LDA, RPL, RCA and was discharged with Lifevest Had follow up echo on 12/23/24: EF: 35-39%, diffuse hypokinesis, right ventricular cavity mildly dilated, mild-moderate mitral regurgitation and Lifevest was discontinued Monitor I's & O's, daily weights. Low sodium diet Hold home Lasix po and convert to IV Continue spironolactone Hasn't been taking Entresto, Jardiance secondary to insurance issues. Will hold for now Continue Eliquis, Plavix, atorvastatin Will start potassium supplement, monitor and adjust as needed Trend troponin Echo EKG in am Follows with [facility] cardiology but missed follow up appointment Cardiology consult CBC, CMP, magnesium labs in am #COPD #Possible COPD exacerbation Reports cough sometimes productive clear sputum Negative biofire respiratory panel In ER given solumedrol 125mg IV, albuterol neb Will switch to xopenex nebs prn as pt with tachycardia Consideration for possible pneumonia vs atelectasis on CXR, however procalcitonin negative and no leukocytosis. Will hold on antibiotics at this time and monitor. Incentive spirometry, Mucinex Not using home inhalers for quite sometime secondary to insurance issues per pt (4) Permanent atrial fibrillation: Plan: Afib RVR with rates 90-s to one teens in ER Anticoagulated on Eliquis Reported not taking Eliquis for couple of weeks Resume Eliquis Continue metoprolol succinate, starting with missed home dose now (5) HTN (hypertension): Plan: Continue metoprolol succinate (6) Dyslipidemia: Plan: Continue atorvastatin (7) LINSEY (obstructive sleep apnea): Plan: CPAP with 1L O2 Hasn't been using CPAP regularly. Hasn't been using oxygen Resume CPAP with 1L O2 HS (8) Tobacco use: Plan: Nicotine patch Smoking cessation recommended (9) Anxiety: Plan: Continue fluoxetine (10) Morbid obesity: Plan: BMI: 45 DVT Prophylaxis Eliquis Admit telemetry Full Code as per discussion with pt Follows with Saleem Parker PA-C for routine care Pt was seen and care coordinated with Dr Jensen. See addendum I spent a total of 75 minutes reviewing notes, outpatient records, labs, medication, coordinating, documenting and providing care for this patient excluding time spent in the performance of separately billed services and excluding time spent by another provider/QHP. History of Present Illness Chief Complaint: SOB Primary Care Provider: NO PCP Patient is 45 year old female with PMH CAD s/p PCI stent of LAD and second diagonal branch in 2005 at [place], NSTEMI s/p PCI LDA, RPL, RCA in 08/2024, permanent atrial fibrillation anticoagulated on Eliquis Chronic HFrEF, dilated cardiomyopathy, Right MCA CVA in 2018, HTN, dyslipidemia, COPD, LINSEY CPAP with 1L oxygen, tobacco use, history medication noncompliance presented to ER with c/o SOB x several weeks. Patient states that for past several weeks having exertional SOB. Denies CP. Having cough sometimes clear sputum. Feels like having some sinus drainage. Denies known ill contacts. Is unaware if having wheezing. Patient unsure if increased edema but per her Aunt report she thought her legs appeared more swollen. States her Aunt urged her to be evaluated today. Patient reports has not been taking some of her medications for several months in which she states not taking Jardiance, Entresto or digoxin and reports has not taken Eliquis for approximately 3 weeks. She is unsure if she is taking spironolactone. She reports she has been taking metoprolol , Plavix, Lasix however has not taken for 24 hours. She reports lost her insurance and having difficulty paying for her medications so she has "picked ones she thought were important". Hasn't had inhalers "for awhile" either. Not using CPAP or oxygen regularly at night. Denies fever/chills, diaphoresis, N/V/D/C, SERRANO, dizziness, syncope, vision changes, neck pain, palpitations, hemoptysis, sore throat, otalgia, abdominal pain, paresthesias, weakness, rashes, urinary symptoms. Allergies Allergy/AdvReac Type Severity Reaction Status Date / Time No Known Allergies Allergy Unverified 08/24/25 14:00 Home Medications Medication Instructions Recorded Confirmed Type apixaban 5 mg tablet (Eliquis) 5 mg PO BID 08/24/25 08/24/25 History atorvastatin 80 mg tablet 80 mg PO DAILY 08/24/25 08/24/25 History clopidogrel 75 mg tablet 75 mg PO DAILY 08/24/25 08/24/25 History digoxin 250 mcg (0.25 mg) tablet 0 mcg PO DAILY 08/24/25 08/24/25 History empagliflozin 10 mg tablet 0 mg PO DAILY 08/24/25 08/24/25 History (Jardiance) fluoxetine 20 mg capsule 20 mg PO DAILY 08/24/25 08/24/25 History furosemide 40 mg tablet 40 mg PO BID 08/24/25 08/24/25 History metoprolol succinate 100 mg 100 mg PO DAILY 08/24/25 08/24/25 History tablet,extended release 24 hr sacubitril 24 mg-valsartan 26 mg 1 tab PO BID 08/24/25 08/24/25 History tablet (Entresto) spironolactone 25 mg tablet 12.5 mg PO DAILY 08/24/25 08/24/25 History Past Med/Surg History Problem List (Updated 08/24/25 @ 16:18 by Julia Duenas PA-C) Acute on chronic HFrEF (heart failure with reduced ejection fraction) Medical History (Updated 08/24/25 @ 16:18 by Julia Duenas PA-C) Anxiety COPD (chronic obstructive pulmonary disease) Tobacco use Morbid obesity LINSEY (obstructive sleep apnea) Permanent atrial fibrillation Chronic HFrEF (heart failure with reduced ejection fraction) Dilated cardiomyopathy HTN (hypertension) Dyslipidemia CAD (coronary artery disease) Surgical History History of cardiac catheterization History of tonsillectomy and adenoidectomy Family History (Updated 08/24/25 @ 16:21 by Julia Duenas PA-C) Other Hypertension Stroke Social History (Updated 08/24/25 @ 16:20 by Julia Duenas PA-C) Smoking Status: Current every day smoker Tobacco Type: Cigarettes Cigarettes Per Day: 1 ppd; Hx Alcohol Use: No Hx Substance Use: No Feels Safe at Home: Yes Review of Systems Review of Systems: All systems reviewed & are unremarkable except as noted in HPI & below Physical Exam Physical Exam: General: no distress, obese Head: normocephalic, atraumatic Eyes: conjunctiva non-injected, anicteric ENT: normal inspection external ears, nose, mucous membranes moist Neck: supple, trachea midline Lungs: no respiratory distress on 2L via NC with sat 94%, +scattered expiratory wheezing, +rales bases CV: irregularly irregular, trace pretibial edema Abd: protuberant, normal BS, soft, non-tender Ext: no cyanosis, no calf tenderness Neuro: A&O x 3, no focal deficits noted, normal affect Skin: warm, dry Results & Data Results & Data Vital Signs (Past 12 Hours) Vital Signs Temp Pulse Pulse Resp BP BP Pulse Ox 08/24/25 13:42 96 H 08/24/25 13:11 91 H 20 120/101 H 90 08/24/25 11:31 93 08/24/25 11:17 36.4 C L 112 H 20 116/77 94 O2 Del Method 08/24/25 13:42 08/24/25 13:11 Room Air 08/24/25 11:31 Room Air 08/24/25 11:17 Room Air Laboratory Results Short CBC 08/24/25 Range/Units 11:34 WBC 7.27 (4.8-10.8) K/ul Hgb 14.9 (12.0-16.0) g/dl Hct 47.4 H (37.0-47.0) % Plt Count 251 (130-400) K/uL BMP 08/24/25 11:34 Sodium 141 Potassium 4.2 Chloride 104 Carbon Dioxide 30 BUN 20 Creatinine 1.30 H Glucose 102 H Calcium 9.4 Liver Function 08/24/25 Range/Units 11:34 Total Bilirubin 1.8 H (0.2-1.0) mg/dl AST 17 (13-39) U/L ALT 22 (7-52) U/L Alkaline Phosphatase 89 (34-104) U/L Albumin 4.2 (3.4-5.0) gm/dl Diagnostic Findings Chest X-Ray 08/24/25 11:40 XR chest 1V portable CLINICAL HISTORY: Chest pain, nonspecific COMPARISON STUDY: None FINDINGS: There is prominent cardiomegaly with mild pulmonary vascular congestion. There is hazy opacity at the right lung base. Otherwise the lungs remain aerated. IMPRESSION: 1. CHF. 2. Hazy opacity at the right lung base could represent artifact from overlying soft tissue, atelectasis, or pneumonia. ACT 112: Negative or not required by law. Electronically signed by: Alli Blunt M.D. 08/24/2025 12:50 PM Supervising Physician Co-Signing Physician Notes Pt seen and examined by me, care coordinated w/ Howard Duenas, pls refer to her note above for further detail. Pt is 45 yo F with hx of CAD s/p PCI stent of LAD and second diagonal branch in 2005 at [place], NSTEMI s/p PCI LDA, RPL, RCA in 08/2024, permanent atrial fibrillation anticoagulated on Eliquis, Chronic HFrEF, dilated cardiomyopathy, Right MCA CVA in 2018, HTN, dyslipidemia, COPD, LINSEY CPAP with 1L oxygen, tobacco use, history medication noncompliance presented to ER with c/o SOB x several weeks. Patient states that for past several weeks having exertional SOB. Denies CP. Having cough sometimes clear sputum. Patient reports has not been taking some of her medications for several months in which she states not taking Jardiance, Entresto or digoxin and reports has not taken Eliquis for approximately 3 weeks. She is unsure if she is taking spironolactone. She reports she has been taking metoprolol , Plavix, Lasix however has not taken for 24 hours. She reports lost her insurance and having difficulty paying for her medications. Currently pt is sitting up in bed in NAD, on suppl. O2. She is awake, alert, answers appropriately. Heart sounds irregular, mildly tachycardic, lung sounds: + wheezing, + rales. Abdomen soft, nontender. Mild LE edema. Moves extremities. Skin is warm, dry. Resume eliquis, cont. metoprolol, plavix, statin. Received 40 iv lasix in ED, will cont. w/ diuresis. Will discuss further w/ cardiology in the morning. Admit to tele. MD Mikey
[2025-08-24] MEDS: METOPROLOL SUCC 50MG EXT REL TAB PO STA (15:19)
[2025-08-24] MEDS: APIXABAN 5 MG TABLET PO ONE (15:19)
--- NOTE | 2025-08-24 17:06 | Electrocardiogram Report ---
Test Reason : Blood Pressure : */* mmHG Vent. Rate : 113 BPM Atrial Rate : * BPM P-R Int : * ms QRS Dur : 94 ms QT Int : 344 ms P-R-T Axes : * 95 25 degrees QTcB Int : 471 ms Atrial fibrillation with rapid ventricular response Rightward axis Low voltage QRS Anterior infarct , age undetermined Abnormal ECG No previous ECGs available Confirmed by Avery Pascal ([id number]) on 08/24/2025 5:05:37 PM Referred By: Confirmed By: Avery Pascal
[2025-08-24] MEDS ORDERED: POLYETHYLENE (MIRALAX) 17 GM PACK PO PRN (17:07)
[2025-08-24] MEDS ORDERED: LEVALBUTEROL 1.25 MG/3 ML NEB NEB PRN (17:07)
[2025-08-24] MEDS ORDERED: ONDANSETRON INJ 2 MG/ML 2 ML VIAL IV PRN (17:07)
[2025-08-24] MEDS: NICOTINE 21 MG/24 HR TDSY TD SCH (20:05)
[2025-08-24] MEDS: FUROSEMIDE 40 MG/4 ML VIAL IV SCH (20:06)
[2025-08-24] MEDS: CLOPIDOGREL BISULFATE 75 MG TAB PO SCH (20:06)
[2025-08-24] MEDS: POTASSIUM CHLORIDE 10 MEQ TABCR PO ONE ×2 (20:06→20:07)
[2025-08-24] MEDS: guaiFENesin 600 MG TABCR PO SCH (20:59)
[2025-08-24] MEDS: APIXABAN 5 MG TABLET PO SCH (20:59)
[2025-08-24] MEDS ORDERED: METOPROLOL TARTRATE 1 MG/ML VIAL IV PRN (21:12)
[2025-08-25 07:54] LABS: Hematocrit (blood only) 42.5 % (37.0-47.0); Hemoglobin 13.6 g/dl (12.0-16.0); Mean Corpuscular Hemoglobin 30.7 pg (25.0-34.0); Mean Corpuscular Volume 95.9 fL (80.0-100.0); Platelet Count 235 K/uL (130-400); RDW Standard Deviation 54.2 fL (36.4-46.3); Red Blood Count 4.43 M/uL (4.20-5.40); White Blood Count 12.15 K/ul (4.8-10.8)
[2025-08-25 08:16] LABS: Alanine Aminotransferase 18.0 U/L (7-52); Albumin Globulin Ratio 1.2 (0.9-2); Albumin Level 3.6 gm/dl (3.4-5.0); Alkaline Phosphatase 83.0 U/L (34-104); Anion Gap 7.0 (3-11); Bilirubin,Total 1.5 mg/dl (0.2-1.0); Blood Urea Nitrogen 24.0 mg/dl (6-23); Calcium 9.3 mg/dl (8.6-10.3); Carbon Dioxide 30.0 mmol/L (21-32); Chloride 104.0 mmol/L (98-107); Creatinine Clr Calc Pharmacy 71.5 ml/min; Globulin 3.0 gm/dl (2.5-4.0); Glucose 124.0 mg/dl (70-99(Fasting)); Magnesium 2.0 mg/dl (1.7-2.4); Potassium 4.5 mmol/L (3.5-5.1); Sodium 141.0 mmol/L (136-145); Total Protein 6.6 gm/dl (6.0-8.3)
[2025-08-25 08:30] LABS: Thyroid Stimulating Hormone 1.364 uIu/ml (0.300-4.500)
[2025-08-25] MEDS: POTASSIUM CHLORIDE 10 MEQ TABCR PO SCH (10:09)
[2025-08-25] MEDS: ATORVASTATIN 40 MG TAB PO SCH (10:09)
[2025-08-25] MEDS: METOPROLOL SUCC 50MG EXT REL TAB PO SCH (10:10)
[2025-08-25] MEDS: REMOVE NICODERM PATCH SCH (10:13)
[2025-08-25] MEDS: SPIRONOLACTONE 12.5 MG TAB PO SCH (11:32)
--- NOTE | 2025-08-25 11:54 | Electrocardiogram Report ---
Test Reason : Blood Pressure : */* mmHG Vent. Rate : 87 BPM Atrial Rate : * BPM P-R Int : * ms QRS Dur : 94 ms QT Int : 400 ms P-R-T Axes : * 59 72 degrees QTcB Int : 481 ms Atrial fibrillation Cannot rule out Inferior infarct (cited on or before 24-Aug-2025) Nonspecific ST abnormality Abnormal ECG When compared with ECG of 24-Aug-2025 11:27, Minimal criteria for Anterior infarct are no longer Present Nonspecific T wave abnormality now evident in Anterior leads Confirmed by Avery Pascal ([id number]) on 08/25/2025 11:54:10 AM Referred By: REFERRED SELF Confirmed By: Avery Pascal
--- NOTE | 2025-08-25 15:16 | Hospitalist Progress Note ---
Date of Service August 25, 2025 Assessment & Plan (1) Acute on chronic HFrEF (heart failure with reduced ejection fraction): (2) CAD (coronary artery disease): (3) Dilated cardiomyopathy: Plan: Patient is 45 year old female with PMH CAD s/p PCI stent of LAD and second diagonal branch in 2005 at [place], NSTEMI s/p PCI LDA, RPL, RCA in 08/2024, permanent atrial fibrillation anticoagulated on Eliquis Chronic HFrEF, dilated cardiomyopathy, Right MCA CVA in 2018, HTN, dyslipidemia, COPD, LINSEY CPAP with 1L oxygen, tobacco use, history medication noncompliance presented to ER with c/o SOB x several weeks. In ER afebrile, P: 112, R: 20,BP: 116/77, 94% on RA Repeat vitals P: 96, BP: 120/101, R: 20, 90% on RA No leukocytosis, negative procalcitonin. BNP: 1804 Troponin: 20.8, 17 CXR: CHF. Hazy opacity at the right lung base In ER given Lasix 40mg IV, solumedrol 125mg IV, albuterol neb, guaifenesin Echo: 09/11/22: EF: 20-24% Echo: 09/22/24: EF: 25-29%, diffuse hypokinesis, right ventricular cavity mildly dilated, mild mitral regurgitation [facility] [place]24-09/23[place]24 for NSTEMI s/p PCI LDA, RPL, RCA and was discharged with Lifevest Had follow up echo on 12/23/24: EF: 35-39%, diffuse hypokinesis, right ventricular cavity mildly dilated, mild-moderate mitral regurgitation and Lifevest was discontinued Monitor I's & O's, daily weights. Low sodium diet Hold home Lasix po and convert to IV Lasix 40mg BID Continue spironolactone Hasn't been taking Entresto, Jardiance secondary to insurance issues. Will hold for now Continue Eliquis, Plavix, atorvastatin Started on potassium supplement, monitor and adjust as needed Echo pending Follows with [facility] cardiology but missed follow up appointment Cardiology consult #COPD #Possible COPD exacerbation Reports cough sometimes productive clear sputum Negative biofire respiratory panel In ER given solumedrol 125mg IV, albuterol neb Will switch to xopenex nebs prn as pt with tachycardia Consideration for possible pneumonia vs atelectasis on CXR, however procalcitonin negative and no leukocytosis. Will hold on antibiotics at this time and monitor. Incentive spirometry, Mucinex Not using home inhalers for quite sometime secondary to insurance issues per pt Saturating well on room air and no wheezing noted on exam, hold on further steroids for now (4) Permanent atrial fibrillation: Plan: Afib RVR with rates 90s to one teens in ER Anticoagulated on Eliquis however reported not taking Eliquis for couple of weeks Resume Eliquis Continue metoprolol succinate Rates improved #NSVT Reported 6 beat run of V. tach this a.m., asymptomatic K+ 4.5, Mg +2.0 Continue beta-jorge (5) HTN (hypertension): Plan: Continue metoprolol succinate (6) Dyslipidemia: Plan: Continue atorvastatin (7) LNISEY (obstructive sleep apnea): Plan: CPAP with 1L O2 Hasn't been using CPAP regularly. Hasn't been using oxygen Resume CPAP with 1L O2 HS (8) Tobacco use: Plan: Nicotine patch Smoking cessation recommended (9) Anxiety: Plan: Continue fluoxetine (10) Morbid obesity: Plan: BMI: 45 DVT Prophylaxis Eliquis Dispo: Anticipate discharge home once medically stable. Patient reports she recently lost her insurance. Will need to coordinate with CM regarding prescription coverage. Admission and Anticipated Discharge Date Admission Date: August 24, 2025 Supervising Physician Co-Signing Physician Notes Patient seen and examined Agree with findings and plans as detailed by Melony SALAS Subjective Follow-up for acute on chronic HFrEF. Patient seen and examined. Resting in bed. Offers no complaints. Denies chest pain and shortness of breath. Reports feeling improved. Physical Exam Constitutional: WD/WN, vitals as above no acute distress Respiratory: normal respiratory effort; no respiratory distress Auscultation: + diminished lung sounds Cardiovascular: Rate/Rhythm: regular rate and regular rhythm Vessels: normal peripheral pulses Extremities: no edema Skin: no rashes, warm and dry Neurologic: no focal motor deficits Psychiatric: A+Ox3, euthymic affect Results & Data Results & Data Vital Signs (Past 12 Hours) Vital Signs Temp Pulse Pulse Resp BP Pulse Ox O2 Del Method 08/25/25 11:50 36.7 C 74 18 114/76 96 CPAP 08/25/25 11:45 Room Air, CPAP 08/25/25 11:20 74 19 93 08/25/25 08:08 112/76 08/25/25 07:30 36.3 C L 78 24 92/72 L 91 CPAP O2 Flow Rate 08/25/25 11:50 08/25/25 11:45 08/25/25 11:20 1.5 08/25/25 08:08 08/25/25 07:30 Laboratory Results Short CBC 08/25/25 Range/Units 07:02 WBC 12.15 H (4.8-10.8) K/ul Hgb 13.6 (12.0-16.0) g/dl Hct 42.5 (37.0-47.0) % Plt Count 235 (130-400) K/uL BMP 08/25/25 07:02 Sodium 141 Potassium 4.5 Chloride 104 Carbon Dioxide 30 BUN 24 H Creatinine 1.29 H Glucose 124 H Calcium 9.3 Liver Function 08/25/25 Range/Units 07:02 Total Bilirubin 1.5 H (0.2-1.0) mg/dl AST 14 (13-39) U/L ALT 18 (7-52) U/L Alkaline Phosphatase 83 (34-104) U/L Albumin 3.6 (3.4-5.0) gm/dl
--- NOTE | 2025-08-25 15:43 | XCELERA ---
[id number] \\[id number]
[2025-08-25 18:21] LABS: Appearance Urine Clear (Clear); Bacteria Urine Automated 1+ (None Seen); Cast Urine Automated 0-2 /lpf (0-2); Glucose Urine UA Negative (Negative); WBC Urine Automated 0-5 /hpf (0-5)
--- NOTE | 2025-08-25 19:10 | Cardiology Consultation ---
Date of Consultation August 25, 2025 Assessment & Plan (1) Acute on chronic HFrEF (heart failure with reduced ejection fraction): (2) Permanent atrial fibrillation: Patient with noted history of severe coronary disease, complex LAD and RCA interventions performed at [facility] in 2023. Patient has had difficulties with affordability of medications as noted in detail in the admission history and physical. She states that her Eliquis is over $400 / month. She is a candidate for an assistance program or can be transition to warfarin although adherence to the warfarin may be an issue. She states that she has been taking clopidogrel. -Eliquis, atorvastatin, clopidogrel, metoprolol, spironolactone have been reinitiated. -Agree with holding Jardiance and Entresto pending further diuretic therapy and assessment of cost feasibility. -Patient denies any symptoms suggestive of angina. Perhaps her decline in ejection fraction has been related to medication noncompliance. -Agree with current dose of furosemide 40 mg IV twice daily. Monitor renal function and electrolytes. Howard Esteban DO History of Present Illness Attending Physician: Maggie Kingsley MD History of Present Illness Kody Salazar is a 45 year old female seen in cardiology consultation per the request of Julia Duenas PA-C For evaluation of acute heart failure with reduced ejection fraction. Patient describes progressive shortness of breath of several weeks duration.Her breathing feels improved after receiving IV furosemide. Telemetry reveals rate controlled atrial fibrillation. Bradycardia was noted first and this morning with pause of 2.1 seconds and no prolonged bradycardia otherwise. Patient has previously followed with [facility] cardiology like hollis anderson, most recent visit had been there in September,. History as obtained from outpatient Cardiology notes: 1. CAD -s/p PCI with stenting (Vision 3.0 x 15) of the mLAD and second diagonal branch at the bifurcation in 2005 ([place]) -Most recent repeat cardiac catheterization took place 09/22/2024 at [facility] with findings of 80% mid right coronary stenosis, 80% right posterolateral branch stenosis and 90% distal right posterolateral branch stenosis, 70% proximal LAD stenosis, 70% mid LAD stenosis with in-stent restenosis and distal to the LAD stent the mid LAD had a 90% stenosis Patient therefore underwent PCI of the proximal to mid LAD with overlapping Sohail drug-eluting stents, successful PCI of the proximal to mid right coronary artery with overlapping [place] drug-eluting stents, stenting of the right posterolateral branch with overlapping Sohail drug-eluting stents -Circumflex coronary was described as a medium caliber vessel with mild disease 2.Ischemic cardiomyopathy with chronic heart failure with reduced ejection fraction 3.Permanent atrial fibrillation 4. Right MCA CVA (2018), 6. HTN, 7. Dyslipidemia, 8. Other: Anxiety, Obesity, Obstructive lung disease, LINSEY/CPAP, pulmonary embolism RLL (07/2021), tobacco use Allergies Allergy/AdvReac Type Severity Reaction Status Date / Time No Known Allergies Allergy Unverified 08/24/25 14:00 Home Medications Medication Instructions Recorded Confirmed Type apixaban 5 mg tablet (Eliquis) 5 mg PO BID 08/24/25 08/24/25 History atorvastatin 80 mg tablet 80 mg PO DAILY 08/24/25 08/24/25 History clopidogrel 75 mg tablet 75 mg PO DAILY 08/24/25 08/24/25 History digoxin 250 mcg (0.25 mg) tablet 0 mcg PO DAILY 08/24/25 08/24/25 History empagliflozin 10 mg tablet 0 mg PO DAILY 08/24/25 08/24/25 History (Jardiance) fluoxetine 20 mg capsule 20 mg PO DAILY 08/24/25 08/24/25 History furosemide 40 mg tablet 40 mg PO BID 08/24/25 08/24/25 History metoprolol succinate 100 mg 100 mg PO DAILY 08/24/25 08/24/25 History tablet,extended release 24 hr sacubitril 24 mg-valsartan 26 mg 1 tab PO BID 08/24/25 08/24/25 History tablet (Entresto) spironolactone 25 mg tablet 12.5 mg PO DAILY 08/24/25 08/24/25 History Patient History Medical History Anxiety COPD (chronic obstructive pulmonary disease) Tobacco use Morbid obesity LINSEY (obstructive sleep apnea) Permanent atrial fibrillation Chronic HFrEF (heart failure with reduced ejection fraction) Dilated cardiomyopathy HTN (hypertension) Dyslipidemia CAD (coronary artery disease) Surgical History History of cardiac catheterization History of tonsillectomy and adenoidectomy Family History Other Hypertension Stroke Social History Smoking Status: Current every day smoker Tobacco Type: Cigarettes Cigarettes Per Day: 1 pack per day; Hx Alcohol Use: No Hx Substance Use: No Preferred Language: Pashto Communication Ability: Effective 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 Beliefs That Will Affect Care: None Current Living Situation: Family Other Information That Helps Us Care for You: No Feels Safe at Home: Yes Safety Concerns: Feels Safe At This Time Assistive Devices: CPAP Review of Systems Review of Systems: All systems reviewed & are unremarkable except as noted in HPI & below Physical Exam Physical Exam: Temp Pulse Resp BP Pulse Ox O2 Del Method O2 Flow Rate 36.4 C L 52 L 24 104/68 100 BiPAP, CPAP 1.5 08/25/25 16:10 08/25/25 16:10 08/25/25 16:10 08/25/25 16:10 08/25/25 16:10 08/25/25 16:10 08/25/25 15:40 FiO2 97 08/25/25 15:40 General: no acute distress and stated age Eyes: conjunctiva are pink and non-injected, sclera clear Neck: normal jugular venous pulse, no hepatojugular reflux Chest: normal shape and normal respiratory effort Lungs:Decreased breath sounds bilaterally at the bases Cardiac Exam: - regular heart sounds, no murmurs, rubs, or gallops, no jugular venous distention Abdomen: abdomen soft, non-tender, no abnormal masses and no hepatosplenomegaly Extremities: Trace lower extremity edema Neuro:awake, conversant, follows commands, no focal motor deficits Psych: appropriate affect and insight. Results & Data Vital Signs (Past 12 Hours) Vital Signs Temp Pulse Pulse Resp BP Pulse Ox O2 Del Method 08/25/25 16:10 36.4 C L 52 L 24 104/68 100 BiPAP, CPAP 08/25/25 15:40 75 20 95 08/25/25 11:50 36.7 C 74 18 114/76 96 CPAP 08/25/25 11:45 Room Air, CPAP 08/25/25 11:20 74 19 93 08/25/25 08:08 112/76 08/25/25 07:30 36.3 C L 78 24 92/72 L 91 CPAP O2 Flow Rate FiO2 08/25/25 16:10 08/25/25 15:40 1.5 97 08/25/25 11:50 08/25/25 11:45 08/25/25 11:20 1.5 08/25/25 08:08 08/25/25 07:30 Laboratory Results Cardiac Enzymes 08/24/25 08/25/25 Range/Units 20:45 07:02 AST 14 (13-39) U/L Troponin I High Sens 13.3 (0-14) pg/ml CBC 08/25/25 Range/Units 07:02 WBC 12.15 H (4.8-10.8) K/ul RBC 4.43 (4.20-5.40) M/uL Hgb 13.6 (12.0-16.0) g/dl Hct 42.5 (37.0-47.0) % Plt Count 235 (130-400) K/uL Comprehensive Metabolic Panel 08/25/25 Range/Units 07:02 Sodium 141 (136-145) mmol/L Potassium 4.5 (3.5-5.1) mmol/L Chloride 104 (98-107) mmol/L Carbon Dioxide 30 (21-32) mmol/L BUN 24 H (6-23) mg/dl Creatinine 1.29 H (0.6-1.2) mg/dl Glucose 124 H (70-99(Fasting)) mg/dl Calcium 9.3 (8.6-10.3) mg/dl AST 14 (13-39) U/L ALT 18 (7-52) U/L Alkaline Phosphatase 83 (34-104) U/L Total Protein 6.6 (6.0-8.3) gm/dl Albumin 3.6 (3.4-5.0) gm/dl Intake and Output 08/25/25 08/25/25 08/25/25 06:59 14:59 22:59 Output Total 1225 / 1225 Balance -1225 / -1225 Output: Urine 1225 / 1225 Other: # Unmeasured Voids 1 3 Weight 124.42 kg Weight Measurement Method Built in [facility] Diagnostic Findings Chest x-ray: Image reviewed independently which was taken on 08/24/2025, technical limited portable film, enlargement of cardiac silhouette noted, interstitial edema consistent with pulmonary edema/CHF EKG performed 08/25/2025 at 5:42 AM and interpret independently: Atrial fibrillation 87 bpm. Cannot rule out age-indeterminate inferior infarct pattern, nonspecific diffuse T wave changes. Relatively unchanged compared to 08/24/2025. Compared to previous outpatient tracings within [facility] record dating back to August,, tracing appears similar. Transthoracic echocardiogram performed 08/17/2025: Left ventricular systolic function is severely reduced in the range of 25 to 30% with severe left atrial enlargement. Moderate secondary mitral regurgitation with mechanism related underlying cardiomyopathy with noted severe left ventricular chamber dilatation, LVEF 25 to 30%. Doppler and 2D data consistent with elevated left ventricular diastolic filling pressures. -Compared to the report of the previous study performed 12/23/2024 [facility] the [facility], LVEF in the range of 35 to 39% at that time with mild to moderate mitral regurgitation noted -Compared to previous study performed 09/22/2024, LVEF in the range of 25 to 29% at that time PG Care Time/CCT Total # of Minutes Spent Total Time Spent with Patient: Total time spent is greater than 50% in coordination of care (as documented) at patient's floor/unit and/or counseling patient: Coding Level of Care Code 24605 IN/OBS CONSULT LVL 4,60M Diagnoses Acute on chronic HFrEF (heart failure with reduced ejection fraction) I50.23 Permanent atrial fibrillation I48.21 Time Spent (min) 60
[2025-08-26 09:03] LABS: Hematocrit (blood only) 43.5 % (37.0-47.0); Hemoglobin 13.8 g/dl (12.0-16.0); Mean Corpuscular Hemoglobin 30.8 pg (25.0-34.0); Mean Corpuscular Volume 97.1 fL (80.0-100.0); Platelet Count 225 K/uL (130-400); RDW Standard Deviation 56.1 fL (36.4-46.3); Red Blood Count 4.48 M/uL (4.20-5.40); White Blood Count 10.37 K/ul (4.8-10.8)
[2025-08-26 09:19] LABS: Anion Gap 7.0 (3-11); Blood Urea Nitrogen 32.0 mg/dl (6-23); Calcium 9.1 mg/dl (8.6-10.3); Carbon Dioxide 32.0 mmol/L (21-32); Chloride 104.0 mmol/L (98-107); Creatinine Clr Calc Pharmacy 58.6 ml/min; Glucose 94.0 mg/dl (70-99(Fasting)); Magnesium 2.0 mg/dl (1.7-2.4); Potassium 4.1 mmol/L (3.5-5.1); Sodium 143.0 mmol/L (136-145)
--- NOTE | 2025-08-26 15:36 | Hospitalist Progress Note ---
<Statement entered by Quinton Armstrong, - 08/26/25 16:09> D/w SADIE Date of Service August 26, 2025 Assessment & Plan (1) Acute on chronic HFrEF (heart failure with reduced ejection fraction): (2) CAD (coronary artery disease): (3) Dilated cardiomyopathy: Plan: Patient is 45 year old female with PMH CAD s/p PCI stent of LAD and second diagonal branch in 2005 at [place], NSTEMI s/p PCI LDA, RPL, RCA in 08/2024, permanent atrial fibrillation anticoagulated on Eliquis Chronic HFrEF, dilated cardiomyopathy, Right MCA CVA in 2018, HTN, dyslipidemia, COPD, LINSEY CPAP with 1L oxygen, tobacco use, history medication noncompliance presented to ER with c/o SOB x several weeks. In ER afebrile, P: 112, R: 20,BP: 116/77, 94% on RA Repeat vitals P: 96, BP: 120/101, R: 20, 90% on RA No leukocytosis, negative procalcitonin. BNP: 1804 Troponin: 20.8, 17 CXR: CHF. Hazy opacity at the right lung base In ER given Lasix 40mg IV, solumedrol 125mg IV, albuterol neb, guaifenesin Echo: 09/11/22: EF: 20-24% Echo: 09/22/24: EF: 25-29%, diffuse hypokinesis, right ventricular cavity mildly dilated, mild mitral regurgitation [facility] hospitalization 09/21/24-09/23/24 for NSTEMI s/p PCI LDA, RPL, RCA and was discharged with Lifevest Had follow up echo on 12/23/24: EF: 35-39%, diffuse hypokinesis, right ventricular cavity mildly dilated, mild-moderate mitral regurgitation and Lifevest was discontinued Monitor I's & O's, daily weights. Low sodium diet IV Lasix 40mg BID - creat bumped to 1.5 today (baseline low 1s) - will discuss further diuresis with cardiology Continue spironolactone Hasn't been taking Entresto, Jardiance secondary to insurance issues. Will hold for now Continue Eliquis, Plavix, atorvastatin Started on potassium supplement, monitor and adjust as needed, K+ 4.1 today Echo: EF 25 to 30%, left ventricle severely dilated, severe global hypokinesis of the left ventricle, left atrium severely dilated --- Compared previous study performed 12/23/2024, LVEF 35 to 39% at that time with mild to moderate mitral regurgitation noted Follows with [facility] cardiology but missed follow up appointment Cardiology consult - note reviewed #COPD #Possible COPD exacerbation Reports cough sometimes productive clear sputum Negative biofire respiratory panel In ER given solumedrol 125mg IV, albuterol neb Will switch to xopenex nebs prn as pt with tachycardia Consideration for possible pneumonia vs atelectasis on CXR, however procalcitonin negative and no leukocytosis. Will hold on antibiotics at this time and monitor. Incentive spirometry, Mucinex Not using home inhalers for quite sometime secondary to insurance issues per pt Saturating well on room air, has some wheezing on exam today although suspect some element of chronicity given tobacco use, denies shortness of breath, hold on further steroids for now (4) Permanent atrial fibrillation: Plan: Afib RVR with rates 90s to one teens in ER Anticoagulated on Eliquis however reported not taking Eliquis for couple of weeks Resume Eliquis Continue metoprolol succinate Rates improved #NSVT 08/25: Reported 6 beat run of V. tach this a.m., asymptomatic Continue beta-jorge Monitor electrolytes (5) HTN (hypertension): Plan: Continue metoprolol succinate (6) Dyslipidemia: Plan: Continue atorvastatin (7) LINSEY (obstructive sleep apnea): Plan: CPAP with 1L O2 Hasn't been using CPAP regularly. Hasn't been using oxygen Resume CPAP with 1L O2 HS (8) Tobacco use: Plan: Nicotine patch Smoking cessation recommended (9) Anxiety: Plan: Continue fluoxetine (10) Morbid obesity: Plan: BMI: 45 DVT Prophylaxis Eliquis Dispo: Anticipate discharge home once medically stable. Patient reports she recently lost her insurance. Coordinating with CM regarding prescription coverage. Admission and Anticipated Discharge Date Admission Date: August 24, 2025 Subjective Follow-up for acute on chronic HFrEF. Patient seen and examined. Resting in bed, sleeping with CPAP on, easily arousable. Offers no complaints. Denies chest pain and shortness of breath. Reports feeling improved. Physical Exam Constitutional: WD/WN, vitals as above no acute distress Respiratory: normal respiratory effort; no respiratory distress Auscultation: + diminished lung sounds and + wheezes (faint, scattered, expiratory) Cardiovascular: Rate/Rhythm: regular rate and regular rhythm Vessels: normal peripheral pulses Extremities: no edema Skin: no rashes, warm and dry Neurologic: no focal motor deficits Psychiatric: A+Ox3, euthymic affect Results & Data Results & Data Vital Signs (Past 12 Hours) Vital Signs Temp Pulse Resp BP Pulse Ox O2 Del Method 08/26/25 11:57 Room Air 08/26/25 10:58 36.6 C 82 22 102/71 90 CPAP 08/26/25 07:28 36.1 C L 114 H 24 119/80 90 CPAP Laboratory Results Short CBC 08/26/25 Range/Units 07:58 WBC 10.37 (4.8-10.8) K/ul Hgb 13.8 (12.0-16.0) g/dl Hct 43.5 (37.0-47.0) % Plt Count 225 (130-400) K/uL BMP 08/26/25 07:58 Sodium 143 Potassium 4.1 Chloride 104 Carbon Dioxide 32 BUN 32 H Creatinine 1.57 H Glucose 94 Calcium 9.1 Urine 08/25/25 Range/Units Unknown Urine Color Yellow Urine Appearance Clear (Clear) Urine pH 5.5 (4.5-7.5) Ur Specific [place] 1.016 (1.000-1.030) Urine Protein Negative (Negative) Urine Glucose (UA) Negative (Negative)
--- NOTE | 2025-08-26 15:44 | Cardiology Progress Note ---
Date of Service August 26, 2025 Assessment & Plan (1) Acute on chronic HFrEF (heart failure with reduced ejection fraction): (2) Permanent atrial fibrillation: Plan: Patient with noted history of severe coronary disease, complex LAD and RCA interventions performed at [facility] in 2023. Presents with acute on chronic heart failure with reduced ejection fraction in setting of chronic atrial fibrillation. Echocardiogram confirming severe LV systolic dysfunction left ventricular ejection fraction 25 to 30% with severe left atrial enlargement and moderate mitral regurgitation. Noted financial constraints, difficulty affording medications leading to noncompliance. Per review of prior notes, she is a candidate for an assistance program or can be transition to warfarin although adherence to the warfarin may be an issue. Continue IV diuresis with furosemide 40 mg twice daily with potassium supplementation. Toprol-XL, spironolactone, atorvastatin, apixaban, and clopidogrel resumed. Jardiance and Entresto remain on hold pending further assessment of cost feasibility. Monitor fluid balance, daily weight, GFR, and electrolytes. Dylan Sorensen DO, [facility] Admission and Anticipated Discharge Date Admission Date: August 24, 2025 Subjective 45-year-old female seen and examined at the bedside. Admitted with acute on chronic heart failure with reduced ejection. History of severe coronary disease with complex LAD and RCA interventions [facility] 2023. Noncompliant with medications prior to admission. Feeling better today. Fluid balance -3.2 L overnight. Telemetry demonstrates atrial fibrillation in the 70s and 80s. Creatinine mildly elevated up to 1.57 today from 1.29. Review of Systems Review of Systems: All systems reviewed & are unremarkable except as noted in Subjective Physical Exam Constitutional: well nourished and + obese; no acute distress Respiratory: no respiratory distress and no retractions Auscultation: + rales (Right base); no rhonchi and no wheezes Cardiovascular: Rate/Rhythm: + irregularly irregular Heart Sounds: normal S1, normal S2 and + murmur (1/6 midsystolic murmur heard best at the apex) Vessels: + JVD (Difficult to assess due to body habitus) and radial pulses prese nt Extremities: no edema Gastrointestinal (Abdomen): Inspection/Auscultation: abdomen normal to inspection and normal bowel sounds; abdomen not distended Percussion/Palpation: abdomen soft; abdomen nontender, no guarding and abdomen not rigid Neurologic: CN's II-XI intact bilaterally and moves all extremities; no focal motor deficits Results & Data Vital Signs (Past 12 Hours) Vital Signs Temp Pulse Resp BP Pulse Ox O2 Del Method 08/26/25 11:57 Room Air 08/26/25 10:58 36.6 C 82 22 102/71 90 CPAP 08/26/25 07:28 36.1 C L 114 H 24 119/80 90 CPAP Laboratory Results CBC 08/26/25 Range/Units 07:58 WBC 10.37 (4.8-10.8) K/ul RBC 4.48 (4.20-5.40) M/uL Hgb 13.8 (12.0-16.0) g/dl Hct 43.5 (37.0-47.0) % Plt Count 225 (130-400) K/uL Comprehensive Metabolic Panel 08/26/25 Range/Units 07:58 Sodium 143 (136-145) mmol/L Potassium 4.1 (3.5-5.1) mmol/L Chloride 104 (98-107) mmol/L Carbon Dioxide 32 (21-32) mmol/L BUN 32 H (6-23) mg/dl Creatinine 1.57 H (0.6-1.2) mg/dl Glucose 94 (70-99(Fasting)) mg/dl Calcium 9.1 (8.6-10.3) mg/dl Intake and Output 08/26/25 08/26/25 08/26/25 06:59 14:59 22:59 Intake Total 580 / 580 Output Total 300 / 2825 1901 / 1901 Balance -300 / -2585 -1321 / -1321 Intake: Oral 580 / 580 Output: Urine 300 / 2825 190 / 1901 Other: Weight 123.876 kg Weight Measurement Method Built in [facility] PG Care Time/CCT Total # of Minutes Spent Total Time Spent with Patient: Total time spent is greater than 50% in coordination of care (as documented) at patient's floor/unit and/or counseling patient: Coding Level of Care Code 51097 SUB INP/OBS CARE 3/50MIN Diagnoses Acute on chronic HFrEF (heart failure with reduced ejection fraction) I50.23 Permanent atrial fibrillation I48.21
[2025-08-27] MEDS: METOPROLOL SUCC 50MG EXT REL TAB PO SCH (03:16)
[2025-08-27 04:21] LABS: Hematocrit (blood only) 47.0 % (37.0-47.0); Hemoglobin 14.8 g/dl (12.0-16.0); Immature Granulocytes # (auto) 0.02 K/uL (0.01-0.20); Immature Granulocytes % (auto) 0.3 %; Mean Corpuscular Hemoglobin 30.6 pg (25.0-34.0); Mean Corpuscular Volume 97.1 fL (80.0-100.0); Platelet Count 248 K/uL (130-400); RDW Standard Deviation 55.2 fL (36.4-46.3); Red Blood Count 4.84 M/uL (4.20-5.40); White Blood Count 7.17 K/ul (4.8-10.8)
[2025-08-27 04:37] LABS: Anion Gap 10.0 (3-11); Blood Urea Nitrogen 34.0 mg/dl (6-23); Calcium 9.5 mg/dl (8.6-10.3); Carbon Dioxide 31.0 mmol/L (21-32); Chloride 99.0 mmol/L (98-107); Creatinine Clr Calc Pharmacy 55.4 ml/min; Glucose 97.0 mg/dl (70-99(Fasting)); Magnesium 2.1 mg/dl (1.7-2.4); Potassium 4.1 mmol/L (3.5-5.1); Sodium 140.0 mmol/L (136-145)
[2025-08-27] MEDS: ACETAMINOPHEN 325 MG TAB PO PRN (07:44)
--- NOTE | 2025-08-27 14:22 | Cardiology Progress Note ---
Date of Service August 27, 2025 Assessment & Plan (1) Acute on chronic HFrEF (heart failure with reduced ejection fraction): (2) Permanent atrial fibrillation: Plan: Patient with noted history of severe coronary disease, complex LAD and RCA interventions performed at [facility] in 2023. Presents with acute on chronic heart failure with reduced ejection fraction in setting of chronic atrial fibrillation. Echocardiogram confirming severe LV systolic dysfunction left ventricular ejection fraction 25 to 29% with severe left atrial enlargement and moderate mitral regurgitation. Left ventricular ejection fraction has declined when compared to most recent echocardiogram from 12/23/2024 reporting LVEF of 35 to 39%. Noted financial constraints, difficulty affording medications leading to noncompliance. Per review of prior notes, she is a candidate for an assistance program or can be transition to warfarin although adherence to the warfarin may be an issue. Hold IV diuresis and potassium supplementation today. Repeat basic metabolic panel in the a.m. Continue Toprol-XL, spironolactone, atorvastatin, apixaban, and clopidogrel. Consider LifeVest placement at discharge due to decline in left ventricular systolic function and nonsustained ventricular tachycardia recorded on telemetry. Jardiance and Entresto remain on hold pending further assessment of cost feasibility. Monitor fluid balance, daily weight, GFR, and electrolytes. Dylan Sorensen DO, [facility] (3) Ischemic cardiomyopathy: (4) NSVT (nonsustained ventricular tachycardia): Admission and Anticipated Discharge Date Admission Date: August 24, 2025 Subjective 45-year-old female seen and examined at the bedside. Wearing CPAP overnight. Creatinine trending upward. 19 beat run of nonsustained ventricular tachycardia recorded overnight. Otherwise atrial fibrillation with controlled ventricular response. Denies chest pain or shortness of breath at rest. Review of Systems Review of Systems: All systems reviewed & are unremarkable except as noted in Subjective Physical Exam Constitutional: well nourished and + obese; no acute distress Respiratory: no respiratory distress and no retractions Auscultation: + rales (Right base); no rhonchi and no wheezes Cardiovascular: Rate/Rhythm: + irregularly irregular Heart Sounds: normal S1, normal S2 and + murmur (1/6 midsystolic murmur heard best at the apex) Vessels: + JVD (Difficult to assess due to body habitus) and radial pulses present Extremities: no edema Gastrointestinal (Abdomen): Inspection/Auscultation: abdomen normal to inspection and normal bowel sounds; abdomen not distended Percussion/Palpation: abdomen soft; abdomen nontender, no guarding and abdomen not rigid Neurologic: CN's II-XI intact bilaterally and moves all extremities; no focal motor deficits Results & Data Vital Signs (Past 12 Hours) Vital Signs Temp Pulse Pulse Resp BP Pulse Ox O2 Del Method 08/27/25 11:44 36.6 C 69 20 93/70 L 92 Room Air 08/27/25 11:01 Room Air 08/27/25 07:55 36.4 C L 75 20 114/81 94 Room Air 08/27/25 07:48 Room Air, CPAP 08/27/25 07:23 65 08/27/25 03:04 82 19 96 08/27/25 03:00 36.5 C 81 22 123/84 97 CPAP O2 Flow Rate 08/27/25 11:44 08/27/25 11:01 08/27/25 07:55 08/27/25 07:48 08/27/25 07:23 08/27/25 03:04 2 08/27/25 03:00 1 Laboratory Results CBC 08/27/25 Range/Units 03:53 WBC 7.17 (4.8-10.8) K/ul RBC 4.84 (4.20-5.40) M/uL Hgb 14.8 (12.0-16.0) g/dl Hct 47.0 (37.0-47.0) % Plt Count 248 (130-400) K/uL Neut # (Auto) 4.14 (1.40-6.50) K/uL Lymph # (Auto) 2.43 (1.20-3.40) K/uL [place] # (Auto) 0.45 (0.11-0.59) K/uL Eos # (Auto) 0.09 (0.00-0.50) K/uL Baso # (Auto) 0.04 (0.00-0.20) K/uL Comprehensive Metabolic Panel 08/27/25 Range/Units 03:53 Sodium 140 (136-145) mmol/L Potassium 4.1 (3.5-5.1) mmol/L Chloride 99 (98-107) mmol/L Carbon Dioxide 31 (21-32) mmol/L BUN 34 H (6-23) mg/dl Creatinine 1.66 H (0.6-1.2) mg/dl Glucose 97 (70-99(Fasting)) mg/dl Calcium 9.5 (8.6-10.3) mg/dl Intake and Output 08/26/25 08/27/25 08/27/25 22:59 06:59 14:59 Intake Total 340 / 1120 200 / 1120 Output Total 500 / 2401 200 / 200 Balance 340 / -1281 -300 / -1281 -200 / -200 Intake: Oral 340 / 1120 200 / 1120 Output: Urine 500 / 2401 200 / 200 Other: # Unmeasured Voids 4 Weight 123.877 kg Weight Measurement Method Built in [facility] Care Time/CCT Total # of Minutes Spent Total Time Spent with Patient: Total time spent is greater than 50% in coordination of care (as documented) at patient's floor/unit and/or counseling patient: Coding Level of Care Code 14075 SUB INP/OBS CARE 3/50MIN Diagnoses Acute on chronic HFrEF (heart failure with reduced ejection fraction) I50.23 Permanent atrial fibrillation I48.21 Ischemic cardiomyopathy I25.5 NSVT (nonsustained ventricular tachycardia) I47.29
--- NOTE | 2025-08-27 14:36 | Hospitalist Progress Note ---
<Statement entered by Quinton Armstrong DO - 08/27/25 16:17> Seen this AM. she was wearing her cpap. no complaints. working on insurance. likely DC home tomorrow Date of Service August 27, 2025 Assessment & Plan (1) Acute on chronic HFrEF (heart failure with reduced ejection fraction): (2) Permanent atrial fibrillation: (3) CAD (coronary artery disease): (4) HTN (hypertension): (5) Dyslipidemia: (6) LINSEY (obstructive sleep apnea): (7) Anxiety: Plan 45 year old female with PMH significant for CAD s/p stent of LAD (2005), NSTEMI s/p PCI (2023), permanent atrial fibrillation anticoagulated on Eliquis, chronic HFrEF, dilated cardiomyopathy, history of CVA (2017), HTN, dyslipidemia, COPD, LINSEY on CPAP with 1L oxygen, tobacco use, history medication noncompliance who presented to ED on 08/24/2025 with SOB. Acute on chronic HFrEF Patient presenting with SOB x several weeks CXR revealed CHF and hazy opacity at right lung base could represent artifact, atelectasis, or pneumonia Labs revealed no leukocytosis or procalcitonin BNP 1804 Echo on 08/25 revealed LVEF 25-30%, severely dilated and severe global kinesis of LV, severely dilated LA, mod MR-> declined compared to Echo in Nov 2024 with EF 35-39% Likely due to noncompliance with medications due to financial constraints/lapse in insurance Plan: IV lasix held today due to worsening renal function Plan to resume home PO dosing tomorrow pending labs in am Continue metoprolol and spironolactone Entresto and Jardiance on hold due to financial constraints Monitor I&Os and daily weights Cardiology recommends considering Life Vest at discharge-> patient did have Life Vest in Aug 2024 that was discontinued in Nov 2024 Permanent atrial fibrillation Afib RVR on admission-> resolved and currently rate controlled Continue Eliquis and metoprolol NSVT 08/27: 19 beat run of V. tach around 0300 Patient asymptomatic Monitor electrolytes CAD s/p stent Continue Plavix Dyslipidemia Continue atorvastatin LINSEY CPAP with 1L O2 HS Anxiety Continue fluoxetine DVT Prophylaxis: on Eliquis Code Status: FULL CODE PCP: Saleem Parker PA-C Disposition: anticipate dc in the next few days Patient seen in collaboration with Dr. Armstrong. Please see addendum. I spent a total of 60 minutes coordinating, documenting and providing care for this patient excluding time spent in the performance of separately billed services or time spent by another provider/QHP. Admission and Anticipated Discharge Date Admission Date: August 24, 2025 Subjective Patient seen resting in bed Reports she is feeling better Denies chest pain, SOB, abdominal pain, N/V/D Reviewed supply of home medications Review of Systems Review of Systems: All systems reviewed & are unremarkable except as noted in HPI & below Physical Exam Physical Exam: General/Psych: obese, sitting up in bed, NAD, conversing easily Head: normocephalic, atraumatic Eyes: normal inspection, PERRL, conjunctivae pink ENT: external ear and nose normal, oropharynx normal Neck: normal visual inspection, trachea midline Respiratory: normal respiratory effort, lungs diminished with crackles in bases, no accessory muscle use Cardiovascular: irregularly irregular rate and rhythm, no murmur/rub/gallop Extremities: no cyanosis or clubbing, normal peripheral pulses, no BLE edema Abdomen/GI: normal bowel sounds, soft, nontender Neurologic/MSK: A+Ox3, motor strength 5/5, moves all extremities Skin: no rashes, normal color, warm and dry Results & Data Results & Data Vital Signs (Past 12 Hours) Vital Signs Temp Pulse Pulse Resp BP Pulse Ox O2 Del Method 08/27/25 11:44 36.6 C 69 20 93/70 L 92 Room Air 08/27/25 11:01 Room Air 08/27/25 07:55 36.4 C L 75 20 114/81 94 Room Air 08/27/25 07:48 Room Air, CPAP 08/27/25 07:23 65 08/27/25 03:04 82 19 96 08/27/25 03:00 36.5 C 81 22 123/84 97 CPAP O2 Flow Rate 08/27/25 11:44 08/27/25 11:01 08/27/25 07:55 08/27/25 07:48 08/27/25 07:23 08/27/25 03:04 2 08/27/25 03:00 1 Laboratory Results Short CBC 08/27/25 Range/Units 03:53 WBC 7.17 (4.8-10.8) K/ul Hgb 14.8 (12.0-16.0) g/dl Hct 47.0 (37.0-47.0) % Plt Count 248 (130-400) K/uL BMP 08/27/25 03:53 Sodium 140 Potassium 4.1 Chloride 99 Carbon Dioxide 31 BUN 34 H Creatinine 1.66 H Glucose 97 Calcium 9.5 I have independently reviewed and interpreted patient's labs including CBC and BMP Medications Administered Current Inpatient Medications Acetaminophen (Acetaminophen 325 Mg Tab) 650 mg PO Q4H PRN PRN Reason: Pain or Fever Stop: 09/23/25 17:06 Last Admin: 08/27/25 07:44 Dose: 650 mg Apixaban (Apixaban 5 Mg Tablet) 5 mg PO BID [facility] Stop: 09/23/25 20:59 Last Admin: 08/27/25 08:11 Dose: 5 mg Atorvastatin Calcium (Atorvastatin 40 Mg Tab) 80 mg PO DAILY [facility] Stop: 09/24/25 08:59 Last Admin: 08/27/25 08:11 Dose: 80 mg Clopidogrel Bisulfate (Clopidogrel Bisulfate 75 Mg Tab) 75 mg PO DAILY [facility] Stop: 09/23/25 17:14 Last Admin: 08/27/25 08:11 Dose: 75 mg Fluoxetine HCl (Fluoxetine Hcl 20 Mg Cap) 20 mg PO DAILY [facility] Stop: 09/24/25 08:59 Last Admin: 08/27/25 08:11 Dose: 20 mg Guaifenesin (Guaifenesin 600 Mg Tabcr) 600 mg PO Q12 [facility] Stop: 09/23/25 20:59 Last Admin: 08/27/25 08:12 Dose: 600 mg Levalbuterol HCl (Levalbuterol 1.25 Mg/3 Ml Neb) 1.25 mg NEB Q6H PRN PRN Reason: Shortness Of Breath Or Wheezing Stop: 09/23/25 17:06 Metoprolol Succinate (Metoprolol Succ 50mg Ext Rel Tab) 100 mg PO DAILY [facility] Stop: 09/27/25 08:59 Metoprolol Tartrate (Metoprolol Tartrate 1 Mg/Ml Vial) 5 mg IV Q6 PRN PRN Reason: Tachycardia Stop: 09/24/25 00:00 Miscellaneous (Remove Nicoderm Patch) 1 each N/A DAILY@0859 [facility] Stop: 09/24/25 08:58 Last Admin: 08/27/25 08:11 Dose: 1 each Nicotine (Nicotine 21 Mg/24 Hr Tdsy) 1 patch TD QAM [facility] Stop: 09/23/25 17:06 Last Admin: 08/27/25 09:35 Dose: 1 patch Ondansetron HCl (Ondansetron Inj 2 Mg/Ml 2 Ml Vial) 4 mg IV Q6H PRN PRN Reason: Nausea Stop: 09/23/25 17:06 Polyethylene Glycol (Polyethylene (Miralax) 17 Gm Pack) 17 gm PO DAILY PRN PRN Reason: Constipation Stop: 09/23/25 17:06 Potassium Chloride (Potassium Chloride 10 Meq Tabcr) 10 meq PO DAILY [facility] Stop: 09/24/25 08:59 Last Admin: 08/27/25 08:12 Dose: 10 meq Spironolactone (Spironolactone 12.5 Mg Tab) 12.5 mg PO DAILY [facility] Stop: 09/24/25 08:59 Last Admin: 08/27/25 08:12 Dose: 12.5 mg
[2025-08-28 07:09] VITALS: RESP 20
[2025-08-28] MEDS: METOPROLOL SUCC 50MG EXT REL TAB PO SCH (08:14)
[2025-08-28 08:37] LABS: Anion Gap 5.0 (3-11); Blood Urea Nitrogen 32.0 mg/dl (6-23); Calcium 9.5 mg/dl (8.6-10.3); Carbon Dioxide 37.0 mmol/L (21-32); Chloride 99.0 mmol/L (98-107); Creatinine Clr Calc Pharmacy 63.4 ml/min; Glucose 95.0 mg/dl (70-99(Fasting)); Magnesium 2.2 mg/dl (1.7-2.4); Potassium 3.9 mmol/L (3.5-5.1); Sodium 141.0 mmol/L (136-145)
[2025-08-28 11:08] VITALS: TEMP 97.3; O2SAT 96
--- NOTE | 2025-08-28 14:01 | Cardiology Progress Note ---
Date of Service August 28, 2025 Assessment & Plan (1) Acute on chronic HFrEF (heart failure with reduced ejection fraction): (2) Permanent atrial fibrillation: (3) Ischemic cardiomyopathy: (4) NSVT (nonsustained ventricular tachycardia): Plan Patient with noted history of severe coronary disease, complex LAD and RCA interventions performed at [facility] in 2023. Presents with acute on chronic heart failure with reduced ejection fraction in setting of chronic atrial fibrillatio n. Echocardiogram confirming severe LV systolic dysfunction left ventricular ejection fraction 25 to 29% with severe left atrial enlargement and moderate mitral regurgitation. Left ventricular ejection fraction has declined when compared to most recent echocardiogram from 12/23/2024 reporting LVEF of 35 to 39%. Noted financial constraints, difficulty affording medications leading to noncompliance. Resume oral furosemide 40 mg twice daily with potassium supplementation. Continue Toprol-XL, spironolactone, atorvastatin, apixaban, and clopidogrel. External wearable defibrillator (Assure device) order renewed due to decline in LV function and nonsustained ventricular tachycardia on telemetry. Patient unable to afford Entresto. reporting manager working to facilitate assistance program/insurance coverage. Transition to low-dose losartan, 12.5 mg daily. Resume Jardiance. Outpatient basic metabolic panel 1 week postdischarge. Close cardiology follow-up in 1 to 2 weeks, patient prefers to follow-up with cardiology in [facility]. Dylan Sorensen DO, [facility] Admission and Anticipated Discharge Date Admission Date: August 24, 2025 Subjective 45-year-old female seen and examined at the bedside. Feeling better today. No orthopnea or PND. Denies chest discomfort or shortness of breath at rest. Telemetry feels atrial fibrillation with controlled ventricular response. Reports she still has doses of Jardiance at home. Unable to afford Entresto. She also remains in possession of wearable defibrillator (Assure Device) from last year. Review of Systems Review of Systems: All systems reviewed & are unremarkable except as noted in Subjective Physical Exam Constitutional: well nourished and + obese; no acute distress Respiratory: no respiratory distress and no retractions Auscultation: no rales, no rhonchi and no wheezes Cardiovascular: Rate/Rhythm: + irregularly irregular Heart Sounds: normal S1, normal S2 and + murmur (1/6 midsystolic murmur heard best at the apex) Vessels: radial pulses present Extremities: no edema Gastrointestinal (Abdomen): Inspection/Auscultation: abdomen normal to inspection and normal bowel sounds; abdomen not distended Percussion/Palpation: abdomen soft; abdomen nontender, no guarding and abdomen not rigid Neurologic: CN's II-XI intact bilaterally and moves all extremities; no focal motor deficits Results & Data Vital Signs (Past 12 Hours) Vital Signs Temp Pulse Pulse Resp BP BP Pulse Ox 08/28/25 11:02 36.3 C L 70 20 107/74 96 08/28/25 08:00 08/28/25 07:24 74 08/28/25 07:08 36.4 C L 78 20 117/82 91 08/28/25 03:37 36.4 C L 77 18 114/74 92 08/28/25 03:27 20 O2 Del Method O2 Flow Rate 08/28/25 11:02 CPAP 08/28/25 08:00 Room Air, CPAP 08/28/25 07:24 08/28/25 07:08 Room Air 08/28/25 03:37 Room Air 08/28/25 03:27 2 Laboratory Results Comprehensive Metabolic Panel 08/28/25 Range/Units 07:20 Sodium 141 (136-145) mmol/L Potassium 3.9 (3.5-5.1) mmol/L Chloride 99 (98-107) mmol/L Carbon Dioxide 37 H (21-32) mmol/L BUN 32 H (6-23) mg/dl Creatinine 1.45 H (0.6-1.2) mg/dl Glucose 95 (70-99(Fasting)) mg/dl Calcium 9.5 (8.6-10.3) mg/dl Intake and Output 08/27/25 08/28/25 08/28/25 22:59 06:59 14:59 Other: # Unmeasured Voids 1 PG Care Time/CCT Total # of Minutes Spent Total Time Spent with Patient: Total time spent is greater than 50% in coordination of care (as documented) at patient's floor/unit and/or counseling patient: Coding Level of Care Code 71793 SUB INP/OBS CARE 3/50MIN Diagnoses Acute on chronic HFrEF (heart failure with reduced ejection fraction) I50.23 Permanent atrial fibrillation I48.21 Ischemic cardiomyopathy I25.5 NSVT (nonsustained ventricular tachycardia) I47.29
--- NOTE | 2025-08-28 14:35 | Discharge Summary ---
<Statement entered by Quinton Armstrong DO - 08/28/25 15:24> seen and examined this AM. she was wearing her cpap. She has a lifevest and a rep is coming to her house today to ensure it is working properly. cardio cleared for light work. she will f/u with cardio as OP. I spent a total of 12 minutes coordinating, documenting, and providing care for this patient excluding time spent in the performance of separately billed services. This included personally reviewing all current laboratories and imaging studies, medical reconciliation, outpatient chart review and discussion with specialists Discharge Summary Date of Service August 28, 2025 Principal Dx & Hospital Course #1 = Principal Diagnosis (1) Acute on chronic HFrEF (heart failure with reduced ejection fraction): (2) Permanent atrial fibrillation: (3) CAD (coronary artery disease): (4) HTN (hypertension): (5) Dyslipidemia: (6) LINSEY (obstructive sleep apnea): (7) Anxiety: Plan 45 year old female with PMH significant for CAD s/p stent of LAD (2005), NSTEMI s/p PCI (2023), permanent atrial fibrillation anticoagulated on Eliquis, chronic HFrEF, dilated cardiomyopathy, history of CVA (2017), HTN, dyslipidemia, COPD, LINSEY on CPAP with 1L oxygen, tobacco use, history medication noncompliance who presented to ED on 08/24/2025 with SOB. Acute on chronic HFrEF Patient presenting with SOB x several weeks CXR revealed CHF and hazy opacity at right lung base could represent artifact, atelectasis, or pneumonia Labs revealed no leukocytosis or procalcitonin; BNP 1804 Echo on 08/25 revealed LVEF 25-30%, severely dilated and severe global kinesis of LV, severely dilated LA, mod MR-> declined compared to Echo in Nov 2024 with EF 35-39% Likely due to noncompliance with medications due to financial constraints/lapse in insurance Symptoms improved with IV diuresis while inpatient Cardiology consulted and recommending: * Resume oral furosemide 40 mg twice daily (sent 30 day supply) with potassium supplementation.-> sent 30 day supply of KCl * Continue Toprol-XL, spironolactone (sent 30 day supply), atorvastatin (sent 30 day supply), apixaban, and clopidogrel (sent 30 day supply). * External wearable defibrillator ([employer]ure device) order renewed due to decline in LV function and nonsustained ventricular tachycardia on telemetry-> confirmed with [employer] that they received order and will be sending a field crop farm worker to get the Life Vest set up at 4:30pm today * Patient unable to afford Entresto. * aircraft maintenance manager working to facilitate assistance program/insurance coverage-> referral placed to Medical Assistance for patient to set up insurance * Transition to low-dose losartan, 12.5 mg daily. -> sent 60 day supply * Resume Jardiance.-> patient unable to afford * Outpatient basic metabolic panel 1 week postdischarge. -> recommend ordering at PCP follow up appointment * Close cardiology follow-up in 1 to 2 weeks, patient prefers to follow-up with cardiology in [facility]. -> please ensure patient makes an appointment Permanent atrial fibrillation Afib RVR on admission-> resolved and currently rate controlled Continue Eliquis and metoprolol as above CAD s/p stent Continue Plavix (sent 30 day supply) Dyslipidemia Continue atorvastatin (sent 30 day supply) LINSEY CPAP at HS *Home CPAP does not work and discovered to be recalled. Patient will need new script for new CPAP machine once she establishes insurance* Anxiety Continue fluoxetine Patient seen in collaboration with Dr. Armstrong. Please see addendum. Notes For Next Care Provider 45 year old female with significant PMH who was admitted from 08/24-08/28/2025 for acute on chronic HFrEF. Patient ran out of multiple medications prior to admission due to lapse in insurance. Referral was placed to [place] for patient to establish insurance. Scripts sent for 30 day supplies of (affordable) meds with coupons. Patient will need labs at PCP follow up appointment and close follow up with Cardiology in 1-2 weeks. Had an echocardiogram showing worsening EF. Patient needs to wear a Life Vest again and a new script was sent to [employer] for patient to use her previous Life Vest until she gets new insurance. Medication Changes From Visit CONTINUE Eliquis, Atorvastatin (refilled), Plavix (refilled), Fluoxetine, Furosemide (refilled), Metoprolol, Spironolactone (refilled) START Losartan 12.5mg (1/2 tablet) once daily -> this is in place of your Entresto START Potassium Chloride 10meq (one capsule) once daily -> this is to prevent low potassium levels in the blood STOP Digoxin, Entresto, Jardiance Admission HPI Per Admitting Provider Patient is 45 year old female with PMH CAD s/p PCI stent of LAD and second diagonal branch in 2005 at [place], NSTEMI s/p PCI LDA, RPL, RCA in 08/2024, permanent atrial fibrillation anticoagulated on Eliquis Chronic HFrEF, dilated cardiomyopathy, Right MCA CVA in 2018, HTN, dyslipidemia, COPD, LINSEY CPAP with 1L oxygen, tobacco use, history medication noncompliance presented to ER with c/o SOB x several weeks. Patient states that for past several weeks having exertional SOB. Denies CP. Having cough sometimes clear sputum. Feels like having some sinus drainage. Denies known ill contacts. Is unaware if having wheezing. Patient unsure if increased edema but per her Aunt report she thought her legs appeared more swollen. States her Aunt urged her to be evaluated today. Patient reports has not been taking some of her medications for several months in which she states not taking Jardiance, Entresto or digoxin and reports has not taken Eliquis for approximately 3 weeks. She is unsure if she is taking spironolactone. She reports she has been taking metoprolol , Plavix, Lasix however has not taken for 24 hours. She reports lost her insurance and having difficulty paying for her medications so she has "picked ones she thought were important". Hasn't had inhalers "for awhile" either. Not using CPAP or oxygen regularly at night. Denies fever/chills, diaphoresis, N/V/D/C, SERRANO, dizziness, syncope, vision changes, neck pain, palpitations, hemoptysis, sore throat, otalgia, abdominal pain, paresthesias, weakness, rashes, urinary symptoms. Admission Exam Per Admitting Provider General: no distress, obese Head: normocephalic, atraumatic Eyes: conjunctiva non-injected, anicteric ENT: normal inspection external ears, nose, mucous membranes moist Neck: supple, trachea midline Lungs: no respiratory distress on 2L via NC with sat 94%, +scattered expiratory wheezing, +rales bases CV: irregularly irregular, trace pretibial edema Abd: protuberant, normal BS, soft, non-tender Ext: no cyanosis, no calf tenderness Neuro: A&O x 3, no focal deficits noted, normal affect Skin: warm, dry Discharge Exam General/Psych: obese, sitting up in bed, NAD, conversing easily Head: normocephalic, atraumatic Eyes: normal inspection, PERRL, conjunctivae pink ENT: external ear and nose normal, oropharynx normal Neck: normal visual inspection, trachea midline Respiratory: normal respiratory effort, lungs diminished with mild expiratory wheezing, no crackles, no accessory muscle use Cardiovascular: irregularly irregular rate and rhythm, no murmur/rub/gallop Extremities: no cyanosis or clubbing, normal peripheral pulses, no BLE edema Abdomen/GI: normal bowel sounds, soft, nontender Neurologic/MSK: A+Ox3, motor strength 5/5, moves all extremities Skin: no rashes, normal color, warm and dry Updated Medication List Medication Instructions Recorded Confirmed Type apixaban 5 mg tablet (Eliquis) 5 mg PO BID 08/24/25 08/24/25 History digoxin 250 mcg (0.25 mg) tablet 0 mcg PO DAILY 08/24/25 08/24/25 History empagliflozin 10 mg tablet 0 mg PO DAILY 08/24/25 08/24/25 History (Jardiance) fluoxetine 20 mg capsule 20 mg PO DAILY 08/24/25 08/24/25 History metoprolol succinate 100 mg 100 mg PO DAILY 08/24/25 08/24/25 History tablet,extended release 24 hr sacubitril 24 mg-valsartan 26 mg 1 tab PO BID 08/24/25 08/24/25 History tablet (Entresto) atorvastatin 80 mg tablet 80 mg PO DAILY #30 tabs 08/28/25 Rx clopidogrel 75 mg tablet 75 mg PO DAILY #30 tabs 08/28/25 Rx furosemide 40 mg tablet 40 mg PO BID #60 tabs 08/28/25 Rx losartan 25 mg tablet 12.5 mg (1/2 x 25 mg) PO DAILY #30 08/28/25 Rx tabs potassium chloride 10 mEq 10 meq PO DAILY #30 caps 08/28/25 Rx capsule,extended release spironolactone 25 mg tablet 12.5 mg (1/2 x 25 mg) PO DAILY #30 08/28/25 Rx tabs Hospital Stay Data Consultations 08/24/25 14:13 ED Decision to Admit Stat 08/24/25 14:48 Consult Cardiology Routine 08/25/25 14:15 Consult Case Management Ambulatory ONCE Diagnostic Imagining Performed Chest X-Ray 08/24/25 11:40 XR chest 1V portable CLINICAL HISTORY: Chest pain, nonspecific COMPARISON STUDY: None FINDINGS: There is prominent cardiomegaly with mild pulmonary vascular congestion. There is hazy opacity at the right lung base. Otherwise the lungs remain aerated. IMPRESSION: 1. CHF. 2. Hazy opacity at the right lung base could represent artifact from overlying soft tissue, atelectasis, or pneumonia. ACT 112: Negative or not required by law. Electronically signed by: Alli Blunt M.D. 08/24/2025 12:50 PM Pending Results Patient Have Any Pending Studies at Discharge: No Discharge Instructions Given to Patient (Per Discharging Provider) You presented to the hospital with shortness of breath. You had a chest x-ray a nd labs that showed congestive heart failure. You were treated with IV lasix and your symptoms improved. It is extremely important that you take your heart medications, follow a low salt diet, and weigh yourself daily to monitor for worsening of heart failure. You were provided with 30 day supplies of your medications that ran out, and coupons to help pay for the medications. A referral was placed for Medical Assistance and you must go through the process to get health insurance so that you can continue to get these medications refilled. You had an echocardiogram while you were here which showed worsening heart function. Because of this, you will need to wear a Life Vest again. A new script was sent to [employer], the company that previously supplied your Life Vest. You must wear this Life Vest 24/7 except when taking a shower because you are at increased risk for dangerous heart rhythms and cardiac arrest. You are being provided a note so that you can work light duty. MEDICATION CHANGES: CONTINUE Eliquis, Atorvastatin (refilled), Plavix (refilled), Fluoxetine, Furosemide (refilled), Metoprolol, Spironolactone (refilled) START Losartan 12.5mg (1/2 tablet) once daily -> this is in place of your Entresto START Potassium Chloride 10meq (one capsule) once daily -> this is to prevent low potassium levels in the blood STOP Digoxin, Entresto, Jardiance SUMMARY OF TEST RESULTS: See above PENDING TEST RESULTS: None RECOMMENDATIONS FOR FOLLOW-UP: Please follow up with your PCP as scheduled on 09/02/2025 at 9:20am. You will need to have labs checked at this appointment. Please follow up with Cardiology in 1-2 weeks - call your office in [place] to make an appointment OTHER INSTRUCTIONS: Seek medical attention if you have: * temperature above 101 * chest pain or trouble breathing * abdominal pain, nausea, vomiting * diarrhea, dark stools or bloody stools * any unanswered questions or concerns Call 911 if symptoms are severe. It has been a pleasure taking care of you. Please take care of yourself. If you have any questions regarding your recent hospitalization please contact [facility] and request [facility] Hernandezist @ [phone]. Total Time Total Time Spent Total Time Spent (In Minutes): I spent a total of 35 minutes coordinating, documenting and providing care for this patient excluding time spent in the performance of separately billed services or time spent by another provider/QHP.
[2025-08-28 15:12] VITALS: BP 114/74; PULSE 70
== END 2025-08-28 15:59 | disposition home or self-care (01) | DRG 291 ==
LOC: ED 11:10 → SUATTDRO 14:38 → EDINP 14:38 → 2S 08-25 01:35

== ENCOUNTER 2025-10-17 02:13 | Inpatient (IN) ==
--- NOTE | 2025-10-17 02:52 | Emergency Department Note ---
Impression & Plan Dyspnea, Hypoxia, CHF (congestive heart failure), Hypercapnia, Abnormal LFTs ED Provider Note ED Provider Note NAME: RADHA TA AGE:45 SEX: Female : 1980 ARRIVES VIA: private vehicle INFORMANT: Patient ED PROVIDER(s): Digna Gallego DO CHIEF COMPLAINT: shortness of breath, neck pain HPI: This is a 45-year-old female who presents to the Emergency Department due to increased shortness of breath that began 3 days ago. Patient also noted some prior upper back pain recently and tonight has some accompanying neck pain. She states symptoms are similar to when she was admitted with congestive heart failure about a month ago. She states she does use MDI/nebs at home because of a history of COPD, however does not wear home oxygen. She was noted to be hypoxic on arrival here. She denies any change in her cough or sputum production, denies fevers or chills, denies any known sick contacts. Patient denies any increased leg swelling, chest pain or palpitations. Patient reports she is supposed to have a LifeVest however 1 was never provided for her following her discharge. PAST MEDICAL HISTORY:See Below PAST SURGICAL HISTORY:See Below FAMILY HISTORY:See Below SOCIAL HISTORY:See Below HOME MEDICATIONS:See Below ALLERGIES:See Below VITALS:See Below PHYSICAL EXAMINATION: GENERAL: alert, uncomfortable appearing, well nourished, no distress, non-toxic EYE EXAM: normal conjunctiva, PERRL and EOM's grossly intact OROPHARYNX: no exudate, no erythema, lips, buccal mucosa, and tongue normal and mucous membranes are dry NECK: supple, no nuchal rigidity, no adenopathy, non-tender LUNGS: Decreased bilaterally to auscultation. Normal chest wall mechanics, no w/r/r HEART: no murmurs, S1 normal and S2 normal ABDOMEN: abdomen soft, non-tender, normo-active bowel sounds, no masses, no rebound or guarding. BACK: Back is symmetrical on inspection and there is no deformity SKIN: no rashes, petechiae, orbruising UPPER EXTREMITIES: upper extremities are grossly normal. FROM, nml pulses b/l. LOWER EXTREMITIES: Trace bilateral pitting edema. FROM, nml pulses b/l. NEURO EXAM: Normal sensorium, cranial nerves II-XII grossly intact, normal speech, no facial droop,nogross weakness of arms, no gross weakness of legs. Gross sensation intact. No ataxia. Vital Signs: reviewed and remarkable Differential Diagnosis: pneumonia, bronchitis, COPD/Asthma exacerbation, pneumothorax, pulmonary embolism, congestive heart failure, acute coronary syndrome, as well as others were considered MEDICAL DECISION MAKING: This is a 45-year-old female who presents emergency department due to 2 to 3 days of increased shortness of breath. Patient noted to be tachycardic, hypoxic, tachypneic on arrival in triage. Patient started on 4 L/min via nasal cannula with improvement. Labs drawn and sent, IV established, EKG and CXR performed and interpreted at bedside, and patient placed on telemetry. Chest x- ray suggestive of congestive heart failure however similar compared to prior. VBG showed acidemia and hypercapnia. Patient noted to have an elevated BNP. Patient also then noted to have significant hyperkalemia which is new compared to prior as well as an increased creatinine. Patient's LFTs significantly elevated compared to prior as well. Troponin also markedly elevated. Given her hypercapnia, work of breathing, and pulmonary edema and COPD patient started on BiPAP. A nebulizer was given through the BiPAP additionally. Patient started on medications for hyperkalemia. I did speak with nephrology and additionally they recommended additional meds. Case discussed with the hospitalist team for additional evaluation/management. Ultrasound of her abdomen was pending at that time. Patient was noted to have 1 episode of VT. this resolved spontaneously. The admitting hospitalist was updated. Consultation(s): 0410: Discussed with Dr. Coburn, nephrology. Recommends, 2 amps of bicarb and total of 80 mg lasix in additional to other hyperkalemia protocol meds. Would recheck potassium in 2 hours. 0430: Discussed with Dr. Pack, [facility] hospitalist team, for additional evaluation and mgmt. ER Treatment Provided: See below 0315: RT contacted for bipap. Patient placed on bipap with improvement in her work of breathing. 0611: Patient with a 7 beat run of V. tach. This broke spontaneously. Diagnostics Interpreted By Me: -ECG: Atrial fibrillation rate of 100, normal axis, normal intervals, nonspecific ST/T wave changes -Cardiac Monitoring: An order was placed for continuous cardiac monitoring. The monitor shows a rate of 80 with normal sinus rhythm. -Laboratory studies: As stated above and show below. -Imaging studies: cxr: Cardiomegaly noted, no pleural effusions, pulmonary edema noted bilaterally, no wide mediastinum, no focal consolidation Triage Nursing Note Reviewed Prior/Outside Records Reviewed -discharge summary from July 2025 reviewed Critical Care: Critical care of 55 min performed to assess and manage high likelihood of life-threatening CHF, involving labs and imaging performed with assessment to evaluate dyspnea and hypoxia diagnosis with frequent reassessment. This time includes bedside time, treatment discussions with patient/family/consultants, documentation time and excludes procedure time. Past Med/Surg History Problem List (Updated 10/17/25 @ 04:30 by Digna Gallego DO) Abnormal LFTs (Acute) Hypercapnia (Acute) CHF (congestive heart failure) (Acute) Hypoxia (Acute) Dyspnea (Acute) NSVT (nonsustained ventricular tachycardia) Ischemic cardiomyopathy Elevated troponin (Acute) Permanent atrial fibrillation (Acute) COPD (chronic obstructive pulmonary disease) (Acute) Acute on chronic HFrEF (heart failure with reduced ejection fraction) (Acute) Medical History Anxiety COPD (chronic obstructive pulmonary disease) Tobacco use Morbid obesity LINSEY (obstructive sleep apnea) Permanent atrial fibrillation Chronic HFrEF (heart failure with reduced ejection fraction) Dilated cardiomyopathy HTN (hypertension) Dyslipidemia CAD (coronary artery disease) Surgical History History of cardiac catheterization History of tonsillectomy and adenoidectomy Family History Other Hypertension Stroke Social History Smoking Status: Current every day smoker Tobacco Type: Cigarettes Cigarettes Per Day: 1; Second Hand Exposure: No; Do You Dip or Chew Tobacco: No; Tobacco Cessation Education Requested by Patient: No Hx Alcohol Use: Yes Hx Substance Use: No Preferred Language: Macedonian Communication Ability: Effective Carboy Filler Required: No Beliefs That Will Affect Care: None Current Living Situation: Family Other Information That Helps Us Care for You: No Feels Safe at Home: Yes Safety Concerns: Feels Safe At This Time Assistive Devices: Denture - Upper and Denture - Lower Allergies Allergies Allergy/AdvReac Type Severity Reaction Status Date / Time No Known Allergies Allergy Unverified 08/24/25 14:00 Home Meds Home Medications Medication Instructions Recorded Confirmed apixaban 5 mg tablet (Eliquis) 5 mg PO BID 10/17/25 10/17/25 atorvastatin 80 mg tablet 80 mg PO DAILY 10/17/25 10/17/25 clopidogrel 75 mg tablet 75 mg PO DAILY 10/17/25 10/17/25 digoxin 250 mcg (0.25 mg) tablet 250 mcg PO DAILY 10/17/25 10/17/25 empagliflozin 10 mg tablet 10 mg PO DAILY 10/17/25 10/17/25 (Jardiance) fluoxetine 20 mg capsule 20 mg PO DAILY 10/17/25 10/17/25 furosemide 40 mg tablet 40 mg PO BID 10/17/25 10/17/25 losartan 25 mg tablet 12.5 mg PO DAILY 10/17/25 10/17/25 metoprolol succinate 100 mg 100 mg PO DAILY 10/17/25 10/17/25 tablet,extended release 24 hr potassium chloride 10 mEq 10 meq PO DAILY 10/17/25 10/17/25 capsule,extended release sacubitril 24 mg-valsartan 26 mg 1 tab PO BID 10/17/25 10/17/25 tablet (Entresto) spironolactone 25 mg tablet 12.5 mg PO DAILY 10/17/25 10/17/25 Results & Data (ED) Vital Signs Vital Signs - 24 hr 10/17/25 02:18 10/17/25 02:30 10/17/25 02:36 Temperature 36.4 C L Temperature Source Temporal Artery Scan Pulse Rate 105 H 106 H Pulse Rate [Apical] 104 H Respiratory Rate 26 H 20 Respiratory Effort / Characteristics Non-Labored Spontaneous Non-Labored Spontaneous Respiratory Depth Normal Normal Respiratory Pattern Regular Blood Pressure 104/68 Blood Pressure [Right Arm] 104/68 Blood Pressure Mean 80 Blood Pressure Mean [Right Arm] 80 Pulse Oximetry 84 L 100 Oxygen Delivery Method Room Air BiPAP Oxygen Flow Rate 0 Fraction of Inspired Oxygen 40 SaO2/FiO2 Ratio 250 Sepsis Recent Fever Within 48 Hours No Sepsis New/Unexplained Change in Mental Status No Sepsis Action Taken by Nursing Physician Notified Oxygen Flow Rate - Titration Pulse Oximetry Post Tiitration 10/17/25 02:38 10/17/25 02:44 10/17/25 03:34 Temperature Temperature Source Pulse Rate Pulse Rate [Apical] 104 H Respiratory Rate 23 Respiratory Effort / Characteristics Spontaneous Respiratory Depth Respiratory Pattern Blood Pressure Blood Pressure [Right Arm] Blood Pressure Mean Blood Pressure Mean [Right Arm] Pulse Oximetry 84 L 100 Oxygen Delivery Method Nasal Cannula Nasal Cannula BiPAP Oxygen Flow Rate 4 0 Fraction of Inspired Oxygen 40 SaO2/FiO2 Ratio Sepsis Recent Fever Within 48 Hours Sepsis New/Unexplained Change in Mental Status Sepsis Action Taken by Nursing Oxygen Flow Rate - Titration 4 Pulse Oximetry Post Tiitration 97 10/17/25 03:37 10/17/25 04:00 Temperature Temperature Source Pulse Rate 102 H Pulse Rate [Apical] 96 H Respiratory Rate 21 20 Respiratory Effort / Characteristics Non-Labored Spontaneous Non-Labored Spontaneous Respiratory Depth Normal Normal Respiratory Pattern Regular Regular Blood Pressure Blood Pressure [Right Arm] 117/83 Blood Pressure Mean Blood Pressure Mean [Right Arm] 94 Pulse Oximetry 100 100 Oxygen Delivery Method BiPAP Oxygen Flow Rate 0 Fraction of Inspired Oxygen 40 40 SaO2/FiO2 Ratio 250 Sepsis Recent Fever Within 48 Hours Sepsis New/Unexplained Change in Mental Status Sepsis Action Taken by Nursing Oxygen Flow Rate - Titration Pulse Oximetry Post Tiitration Laboratory Data 10/17/25 02:31 10/17/25 02:31 Lab Results 10/17/25 10/17/25 10/17/25 Range/Units 02:31 02:54 04:54 WBC 9.97 (4.8-10.8) K/ul RBC 4.80 (4.20-5.40) M/uL Hgb 15.6 (12.0-16.0) g/dL Hct 46.1 (37.0-47.0) % MCV 96.0 (80.0-100.0) fL MCH 32.5 (25.0-34.0) pg MCHC 33.8 (32.0-36.0) g/dL RDW Std Deviation 54.1 H (36.4-46.3) fL RDW Coeff of Neal 15.4 H (11.5-14.5) % Plt Count 202 (130-400) K/uL MPV 9.8 (9.4-12.4) fL Immature Gran % (Auto) 0.6 % Neut % (Auto) 84.9 % Lymph % (Auto) 8.4 % [place] % (Auto) 5.8 % Eos % (Auto) 0.1 % Baso % (Auto) 0.2 % Neut # (Auto) 8.46 H (1.40-6.50) K/uL Lymph # (Auto) 0.84 L (1.20-3.40) K/uL [place] # (Auto) 0.58 (0.11-0.59) K/uL Eos # (Auto) 0.01 (0.00-0.50) K/uL Baso # (Auto) 0.02 (0.00-0.20) K/uL Immature Gran # (Auto) 0.06 (0.01-0.20) K/uL PT 17.2 H (9.0-12.0) Seconds INR 1.7 H (0.9-1.1) VBG pH 7.23 L (7.36-7.41) VBG pCO2 64 H (38-50) mmHg VBG pO2 23 mmHg VBG HCO3 27 mmol/L VBG O2 Saturation < 60.0 % VBG Base Excess -2.1 mEq/L Sodium 136 (136-145) mmol/L Potassium 6.8 H* (3.5-5.1) mmol/L Chloride 100 (98-107) mmol/L Carbon Dioxide 28 (21-32) mmol/L Anion Gap 8 (3-11) BUN 29 H (6-23) mg/dl Creatinine 1.85 H (0.6-1.2) mg/dl Est Cr Clr Drug Dosing 51.8 ml/min eGFR 33.42 BUN/Creatinine Ratio 15.7 (10-20) Glucose 98 (70-99(Fasting)) mg/dl POC Glucose 164 H (70-99) mg/dl Calcium 9.4 (8.6-10.3) mg/dl Phosphorus 5.6 H (2.5-4.9) mg/dl Magnesium 2.0 (1.7-2.4) mg/dl Total Bilirubin 3.6 H (0.2-1.0) mg/dl AST 1655 H (13-39) U/L ALT 1389 H (7-52) U/L Alkaline Phosphatase 132 H (34-104) U/L Troponin I High Sens 326.5 H* (0-14) pg/ml B-Natriuretic Peptide 1110 H (0-100) pg/ml Total Protein 7.1 (6.0-8.3) gm/dl Albumin 4.2 (3.4-5.0) gm/dl Globulin 2.9 (2.5-4.0) gm/dl Albumin/Globulin Ratio 1.4 (0.9-2) TSH 5.082 H (0.300-4.500) uIu/ml Free T4 1.48 (0.61-1.60) ng/dl Administered Medications Discontinued Medications Albuterol (Albut/Ipratrop 3mg/0.5mg Neb 3 Ml Vial) 3 ml NEB NOW STA; Protocol Stop: 10/17/25 03:29 Last Admin: 10/17/25 03:33 Dose: 3 ml Documented By: saniya Dextrose (Dextrose 50% 50 Ml Syringe) 50 ml IV NOW STA Stop: 10/17/25 03:55 Last Admin: 10/17/25 04:18 Dose: 50 ml Documented By: shakir Furosemide (Furosemide 40 Mg/4 Ml Vial) 40 mg IV ONE STA Stop: 10/17/25 03:55 Last Admin: 10/17/25 04:32 Dose: 40 mg Documented By: shakir Furosemide (Furosemide 40 Mg/4 Ml Vial) 40 mg IV ONE ONE Stop: 10/17/25 04:12 Last Admin: 10/17/25 04:32 Dose: 40 mg Documented By: shakir Calcium Gluconate () 1,000 mg in 60 mls @ 240 mls/hr IV NOW STA Stop: 10/17/25 04:08 Last Infusion: 10/17/25 04:34 Dose: Infused Documented By: shakir Admin: 10/17/25 04:13 Dose: 240 mls/hr Documented By: shakir Insulin Human Regular 10 units (/ Syringe) 9.9 mls @ 3 mls/sec IV ONE STA Stop: 10/17/25 03:55 Last Admin: 10/17/25 04:25 Dose: 3 mls/sec Documented By: shakir Co-signed By: ROOSEVELT Sodium Bicarbonate (Sodium Bicarb 8.4% Inj 50 Meq/50 Ml Syr) 50 meq IV NOW STA Stop: 10/17/25 04:13 Last Admin: 10/17/25 04:21 Dose: 50 meq Documented By: shakir Sodium Bicarbonate (Sodium Bicarb 8.4% Inj 50 Meq/50 Ml Syr) 50 meq IV NOW STA Stop: 10/17/25 04:13 Last Admin: 10/17/25 04:22 Dose: 50 meq Documented By: lcd Sodium Zirconium Cyclosilicate (Sodium Zirconium Cyclosilicate 10 Gm Packet) 10 gm PO NOW STA Stop: 10/17/25 03:55 Last Admin: 10/17/25 04:23 Dose: 10 gm Documented By: lcd Imaging Data Radiologist's Impression: Chest X-Ray 10/17/25 02:31 EXAM: XR chest 1V portable CLINICAL HISTORY: Shortness of breath, hypoxia. TECHNIQUE: An X-ray image of the chest is obtained in AP projection. COMPARISON: 08/24/2025 FINDINGS: Pulmonary Parenchyma: Bilateral perihilar pulmonary congestion, with bilateral streaky linear pattern and bilateral lower zone haziness suggestive of parenchymal edema. No pulmonary nodules are identified. Bilateral CP angles blunting, could be due to pleural effusion or pleural thickening. Heart and Mediastinum: Enlarged heart shadow. No mediastinal widening or masses. No hilar or mediastinal lymphadenopathy. Bony Thorax: Bony thorax appears intact without fractures or deformities. Soft Tissues: Soft tissues overlying the chest wall are unremarkable. IMPRESSION: No apparent interval changes. Bilateral signs of pulmonary edema/pulmonary congestion. Cardiomegaly. To be correlated clinically. Electronically signed by Harshad Hagan 10-17-2025 03:41 AM Abdomen Ultrasound 10/17/25 03:57 EXAM: US abdomen limited CLINICAL HISTORY: Abn LFT's. TECHNIQUE: Ultrasound examination of the RUQ was performed. Scanning was performed with the patient in the supine position. The following structures were specifically evaluated: COMPARISON: None available. FINDINGS: Very limited exam due to the patient's body habitus and breathing. Liver: Liver size: 19.8 cm. Liver appears enlarged in size with increased echogenicity, due to fatty liver. Possible Waldemar's lobe No evidence of focal lesions, cysts, or masses. Hepatic vasculature appears normal. MPV: Patent. Gallbladder: Thickened gallbladder wall measuring 1.0cm without hyperemia. Possible pericholecystic fluid visualized. Trace free fluid seen within the RUQ. No obvious stones were visualized. Biliary Tree: CBD: Unable to be clearly visualized due to the patient's body habitus. CBD at janet hepatis measures 0.35 cm. No evidence of choledocholithiasis or biliary obstruction. Unremarkable pancreas. Right Kidney: Right kidney size: 10.2 cm. The right kidney appears normal in size with preserved corticomedullary differentiation. No evidence of hydronephrosis, renal cysts, or masses. IMPRESSION: Ultrasound examination of the Right Upper Quadrant (RUQ): 1. Hepatomegaly with steatosis. 2. Thickened gallbladder wall measuring 1.0 cm without hyperemia. Possible pericholecystic fluid visualized. Trace free fluid seen within the RUQ. No obvious stones were visualized. The findings could represent gall bladder wall edema secondary to ascites, rather than acute cholecystitis. Please correlate with clinical and lab data. RECOMMENDATIONS: Clinical correlation with symptoms and further evaluation as indicated. Electronically signed by Harshad Hagan 10-17-2025 06:37 AM Discharge Plan Visit Data Chief Complaint: Respiratory Problems Stated Complaint: HARD TO BREATHE ED Provider: Digna Gallego Discharge Problem: Dyspnea, Hypoxia, CHF (congestive heart failure), Hypercapnia, Abnormal LFTs Patient Disposition: Being Evaluated by Hospitalist Condition: Fair Discharge Instructions Interventions: ED Discharge Assessment Last Done: 10/17/25 06:09
[2025-10-17 03:10] LABS: Base Excess VBG -2.1 mEq/L; HCO3 VBG 27 mmol/L; Oxygen Saturation VBG < 60.0 %; PCO2 VBG 64 mmHg (38-50); PO2 VBG 23 mmHg; pH VBG 7.23 (7.36-7.41)
[2025-10-17 03:14] LABS: Hematocrit (blood only) 46.1 % (37.0-47.0); Hemoglobin 15.6 g/dL (12.0-16.0); Immature Granulocytes # (auto) 0.06 K/uL (0.01-0.20); Immature Granulocytes % (auto) 0.6 %; Mean Corpuscular Hemoglobin 32.5 pg (25.0-34.0); Mean Corpuscular Volume 96.0 fL (80.0-100.0); Platelet Count 202 K/uL (130-400); RDW Standard Deviation 54.1 fL (36.4-46.3); Red Blood Count 4.80 M/uL (4.20-5.40); White Blood Count 9.97 K/ul (4.8-10.8)
[2025-10-17] MEDS: ALBUT/IPRATROP 3MG/0.5MG NEB 3 ML VIAL NEB STA (03:33)
--- NOTE | 2025-10-17 03:43 | XRay Report ---
EXAM: XR chest 1V portable CLINICAL HISTORY: Shortness of breath, hypoxia. TECHNIQUE: An X-ray image of the chest is obtained in AP projection. COMPARISON: 08/24/2025 FINDINGS: Pulmonary Parenchyma: Bilateral perihilar pulmonary congestion, with bilateral streaky linear pattern and bilateral lower zone haziness suggestive of parenchymal edema. No pulmonary nodules are identified. Bilateral CP angles blunting, could be due to pleural effusion or pleural thickening. Heart and Mediastinum: Enlarged heart shadow. No mediastinal widening or masses. No hilar or mediastinal lymphadenopathy. Bony Thorax: Bony thorax appears intact without fractures or deformities. Soft Tissues: Soft tissues overlying the chest wall are unremarkable. IMPRESSION: No apparent interval changes. Bilateral signs of pulmonary edema/pulmonary congestion. Cardiomegaly. To be correlated clinically. Electronically signed by Harshad Hagan 10-17-2025 03:41 AM
[2025-10-17 03:52] LABS: Alanine Aminotransferase 1389.0 U/L (7-52); Albumin Globulin Ratio 1.4 (0.9-2); Albumin Level 4.2 gm/dl (3.4-5.0); Alkaline Phosphatase 132.0 U/L (34-104); Anion Gap 8.0 (3-11); Bilirubin,Total 3.6 mg/dl (0.2-1.0); Blood Urea Nitrogen 29.0 mg/dl (6-23); Calcium 9.4 mg/dl (8.6-10.3); Carbon Dioxide 28.0 mmol/L (21-32); Chloride 100.0 mmol/L (98-107); Creatinine Clr Calc Pharmacy 51.8 ml/min; Globulin 2.9 gm/dl (2.5-4.0); Glucose 98.0 mg/dl (70-99(Fasting)); Magnesium 2.0 mg/dl (1.7-2.4); Potassium 6.8 mmol/L (3.5-5.1); Sodium 136.0 mmol/L (136-145); Total Protein 7.1 gm/dl (6.0-8.3)
[2025-10-17 03:57] LABS: Thyroid Stimulating Hormone 5.082 uIu/ml (0.300-4.500)
[2025-10-17 04:12] LABS: INR 1.7 (0.9-1.1); Prothrombin Time 17.2 Seconds (9.0-12.0)
[2025-10-17] MEDS: CALCIUM GLUCONATE 1,000 MG/60 ML BAG IV STA (04:13)
[2025-10-17] MEDS: DEXTROSE 50% 50 ML SYRINGE IV STA (04:18)
[2025-10-17] MEDS: SODIUM BICARB 8.4% INJ 50 MEQ/50 ML SYR IV STA ×2 (04:21→04:22)
[2025-10-17] MEDS: SODIUM ZIRCONIUM CYCLOSILICATE 10 GM PACKET PO STA (04:23)
[2025-10-17] MEDS: INSULIN HUMAN REGULAR PER UNIT 10 UNITS in SYRINGE 9.9 ML IV STA (04:25)
[2025-10-17] MEDS: FUROSEMIDE 40 MG/4 ML VIAL IV STA (04:32)
[2025-10-17] MEDS: FUROSEMIDE 40 MG/4 ML VIAL IV ONE (04:32)
[2025-10-17 05:21] LABS: T4 Free Thyroxine 1.48 ng/dl (0.61-1.60)
--- NOTE | 2025-10-17 05:25 | History & Physical Report ---
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 Last 2 to 3 days patient was feeling short of breath. Has some cough. Was having back pain. Because of ongoing shortness of breath patient was brought to the ER. In the ER she was saturating 84%. Currently on BiPAP she is saturating okay. She is feeling better. Denies any chest pain. Denies any headache. Vision is okay. Denies runny nose or sore throat. No abdominal pain. Normal bowel and bladder movements. Ambulates without support. Patient was recently in the hospital and was discharged on 08/28/2025. She was admitted for acute on chronic heart failure with reduced ejection fraction. Echo on 08/25/2025 shows EF of 25 to 30%. Decline in EF thought to be from noncompliance with medications. Her symptoms improved with diuretics. As she was not able to afford Entresto and she was placed on losartan 12.5 mg daily. But seems current med [facility] also has Entresto. She was supposed to get LifeVest at home. As per aunt she did not had LifeVest yet. Also her CPAP was not working and supposed to get new CPAP machine but not delivered yet and she is not using CPAP for about a month now.Denies taking any Tylenol. Acute on chronic heart failure with reduced ejection fraction Requiring BiPAP Received IV Lasix 80 mg in the ER Will continue with IV Lasix 40 mg twice daily Last echo in 08/25/2025 shows EF of 25 to 30% Will update echo Telemetry Daily weights and I's and O's Will follow repeat ABG Needs LifeVest Cardiology consult for further recommendations Hyperkalemia Will hold potassium supplements, losartan, spironolactone, and Entresto ER discussed with nephrology Patient got calcium gluconate, 2 Amps of sodium bicarbonate ,Lokelma, insulin and dextrose and IV Lasix Will follow repeat labs continue Lokelma Nephrology consulted DENI on CKD stage III Baseline creatinine 1.4-1.5 Presented with creatinine 1.8 Will for repeat labs Nephrology consulted History of prediabetes Sugars running high Continue home Jardiance Sliding scale Will follow HbA1c levels History of CAD status post stent Continue Plavix, statin and Eliquis and metoprolol Non-ST elevated ND Troponin 326 Mostly demand ischemia Will follow serial enzymes and echo and EKG Cardiology consulted Elevated LFTs Total Bilirubin 3.6 AST 1655, ALT 1389, alkaline phos 132 Mostly from hepatic congestion from CHF Will follow liver ultrasound Will follow Tylenol levels Will follow repeat LFTs GI consult for further recommendation History of A-fib On Eliquis and metoprolol Will hold digoxin for now Obstructive sleep apnea Currently on BiPAP Needs CPAP machine at home Hyperlipidemia On statin Anxiety On fluoxetine DVT prophylaxis On Eliquis Disposition Telemetry Full code. 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 Last 2 to 3 days patient was feeling short of breath. Has some cough. Was having back pain. Because of ongoing shortness of breath patient was brought to the ER. In the ER she was saturating 84%. Currently on BiPAP she is saturating okay. She is feeling better. Denies any chest pain. Denies any headache. Vision is okay. Denies runny nose or sore throat. No abdominal pain. Normal bowel and bladder movements. Ambulates without support. Patient was recently in the hospital and was discharged on 08/28/2025. She was admitted for acute on chronic heart failure with reduced ejection fraction. Echo on 08/25/2025 shows EF of 25 to 30%. Decline in EF thought to be from noncompliance with medications. Her symptoms improved with diuretics. As she was not able to afford Entresto and she was placed on losartan 12.5 mg daily. But seems current med [facility] also has Entresto. She was supposed to get LifeVest at home. As per aunt she did not had LifeVest yet. Also her CPAP was not working and supposed to get new CPAP machine but not delivered yet and she is not using CPAP for about a month now.Denies taking any Tylenol. Past medical history. As mentioned above. Past surgical history. Left heart catheterization. Cryocautery of cervix. Hysteroscopy. Tonsillectomy and adenoidectomy. Social history. Smokes 1 pack a day. No alcohol use.. Smokes marijuana as per [employer]. Family history. Mother had arthritis. Depression. Stroke. Son has hypertension. Maternal aunt had cancer. Maternal grandfather had heart disorder. Hypertension. Allergies Allergy/AdvReac Type Severity Reaction Status Date / Time No Known Allergies Allergy Unverified 08/24/25 14:00 Home Medications Medication Instructions Recorded Confirmed Type apixaban 5 mg tablet (Eliquis) 5 mg PO BID 10/17/25 10/17/25 History atorvastatin 80 mg tablet 80 mg PO DAILY 10/17/25 10/17/25 History clopidogrel 75 mg tablet 75 mg PO DAILY 10/17/25 10/17/25 History digoxin 250 mcg (0.25 mg) tablet 250 mcg PO DAILY 10/17/25 10/17/25 History empagliflozin 10 mg tablet 10 mg PO DAILY 10/17/25 10/17/25 History (Jardiance) fluoxetine 20 mg capsule 20 mg PO DAILY 10/17/25 10/17/25 History furosemide 40 mg tablet 40 mg PO BID 10/17/25 10/17/25 History losartan 25 mg tablet 12.5 mg PO DAILY 10/17/25 10/17/25 History metoprolol succinate 100 mg 100 mg PO DAILY 10/17/25 10/17/25 History tablet,extended release 24 hr potassium chloride 10 mEq 10 meq PO DAILY 10/17/25 10/17/25 History capsule,extended release sacubitril 24 mg-valsartan 26 mg 1 tab PO BID 10/17/25 10/17/25 History tablet (Entresto) spironolactone 25 mg tablet .5 mg PO DAILY 10/17/25 10/17/25 History Past Med/Surg History Problem List (Updated 10/17/25 @ 04:30 by Digna Gallego DO) Abnormal LFTs (Acute) Hypercapnia (Acute) CHF (congestive heart failure) (Acute) Hypoxia (Acute) Dyspnea (Acute) NSVT (nonsustained ventricular tachycardia) Ischemic cardiomyopathy Elevated troponin (Acute) Permanent atrial fibrillation (Acute) COPD (chronic obstructive pulmonary disease) (Acute) Acute on chronic HFrEF (heart failure with reduced ejection fraction) (Acute) Medical History Anxiety COPD (chronic obstructive pulmonary disease) Tobacco use Morbid obesity LINSEY (obstructive sleep apnea) Permanent atrial fibrillation Chronic HFrEF (heart failure with reduced ejection fraction) Dilated cardiomyopathy HTN (hypertension) Dyslipidemia CAD (coronary artery disease) Surgical History History of cardiac catheterization History of tonsillectomy and adenoidectomy Family History Other Hypertension Stroke Social History Smoking Status: Current every day smoker Tobacco Type: Cigarettes Cigarettes Per Day: 1; Second Hand Exposure: No; Do You Dip or Chew Tobacco: No; Tobacco Cessation Education Requested by Patient: No Hx Alcohol Use: Yes Hx Substance Use: No Preferred Language: Citizen Of [place] Communication Ability: Effective Emt Required: No Beliefs That Will Affect Care: None Current Living Situation: Family Other Information That Helps Us Care for You: No Feels Safe at Home: Yes Safety Concerns: Feels Safe At This Time Assistive Devices: Denture - Upper and Denture - Lower Review of Systems Review of Systems: All systems reviewed & are unremarkable except as noted in HPI & below Physical Exam Physical Exam: General- Not in distress Head- atraumatic Eyes- PERRL. ENT- oropharynx clear Neck- supple, no JVD. Lungs- clear to auscultation mild bibasilar crackles, no wheezing Heart- regular rhythm; no murmur, no gallop. Abdomen- normal bowel sounds, soft, nontender, no distension Extremities- b/l mild pedal edema present, no erythema seen Neuro- alert, oriented PERRL, no facial palsy; no dysarthria; moves extremities Results & Data Results & Data Vital Signs (Past 12 Hours) Vital Signs Temp Pulse Pulse Resp BP BP Pulse Ox 10/17/25 04:00 96 H 20 117/83 100 10/17/25 03:37 102 H 21 100 10/17/25 03:34 104 H 23 100 10/17/25 02:44 84 L 10/17/25 02:38 10/17/25 02:36 106 H 10/17/25 02:30 104 H 20 104/68 100 10/17/25 02:18 36.4 C L 105 H 26 H 104/68 84 L O2 Del Method O2 Flow Rate FiO2 10/17/25 04:00 BiPAP 0 40 10/17/25 03:37 40 10/17/25 03:34 BiPAP 40 10/17/25 02:44 Nasal Cannula 0 10/17/25 02:38 Nasal Cannula 4 10/17/25 02:36 10/17/25 02:30 BiPAP 0 40 10/17/25 02:18 Room Air Diagnostic Findings Laboratory Results WBC 9.97 K/ul (4.8-10.8) 10/17/25 02:31 RBC 4.80 M/uL (4.20-5.40) 10/17/25 02:31 Hgb 15.6 g/dL (12.0-16.0) 10/17/25 02:31 Hct 46.1 % (37.0-47.0) 10/17/25 02:31 MCV 96.0 fL (80.0-100.0) 10/17/25 02:31 MCH 32.5 pg (25.0-34.0) 10/17/25 02:31 MCHC 33.8 g/dL (32.0-36.0) 10/17/25 02:31 RDW Std Deviation 54.1 fL (36.4-46.3) H 10/17/25 02:31 RDW Coeff of Neal 15.4 % (11.5-14.5) H 10/17/25 02:31 Plt Count 202 K/uL (130-400) 10/17/25 02:31 MPV 9.8 fL (9.4-12.4) 10/17/25 02:31 Immature Gran % (Auto) 0.6 % 10/17/25 02:31 Neut % (Auto) 84.9 % 10/17/25 02:31 Lymph % (Auto) 8.4 % 10/17/25 02:31 Sully % (Auto) 5.8 % 10/17/25 02:31 Eos % (Auto) 0.1 % 10/17/25 02:31 Baso % (Auto) 0.2 % 10/17/25 02:31 Neut # (Auto) 8.46 K/uL (1.40-6.50) H 10/17/25 02:31 Lymph # (Auto) 0.84 K/uL (1.20-3.40) L 10/17/25 02:31 Sully # (Auto) 0.58 K/uL (0.11-0.59) 10/17/25 02:31 Eos # (Auto) 0.01 K/uL (0.00-0.50) 10/17/25 02:31 Baso # (Auto) 0.02 K/uL (0.00-0.20) 10/17/25 02:31 Immature Gran # (Auto) 0.06 K/uL (0.01-0.20) 10/17/25 02:31 PT 17.2 Seconds (9.0-12.0) H 10/17/25 02:31 INR 1.7 (0.9-1.1) H 10/17/25 02:31 VBG pH 7.23 (7.36-7.41) L 10/17/25 02:54 VBG pCO2 64 mmHg (38-50) H 10/17/25 02:54 VBG pO2 23 mmHg 10/17/25 02:54 VBG HCO3 27 mmol/L 10/17/25 02:54 VBG O2 Saturation < 60.0 % 10/17/25 02:54 VBG Base Excess -2.1 mEq/L 10/17/25 02:54 Sodium 136 mmol/L (136-145) 10/17/25 02:31 Potassium 6.8 mmol/L (3.5-5.1) H* 10/17/25 02:31 Chloride 100 mmol/L (98-107) 10/17/25 02:31 Carbon Dioxide 28 mmol/L (21-32) 10/17/25 02:31 Anion Gap 8 (3-11) 10/17/25 02:31 BUN 29 mg/dl (6-23) H 10/17/25 02:31 Creatinine 1.85 mg/dl (0.6-1.2) H 10/17/25 02:31 Est Cr Clr Drug Dosing 51.8 ml/min 10/17/25 02:31 eGFR 33.42 10/17/25 02:31 BUN/Creatinine Ratio 15.7 (10-20) 10/17/25 02:31 Glucose 98 mg/dl (70-99(Fasting)) 10/17/25 02:31 POC Glucose 164 mg/dl (70-99) H 10/17/25 04:54 Calcium 9.4 mg/dl (8.6-10.3) 10/17/25 02:31 Phosphorus 5.6 mg/dl (2.5-4.9) H 10/17/25 02:31 Magnesium 2.0 mg/dl (1.7-2.4) 10/17/25 02:31 Total Bilirubin 3.6 mg/dl (0.2-1.0) H 10/17/25 02:31 AST 1655 U/L (13-39) H 10/17/25 02:31 ALT 1389 U/L (7-52) H 10/17/25 02:31 Alkaline Phosphatase 132 U/L (34-104) H 10/17/25 02:31 Troponin I High Sens 326.5 pg/ml (0-14) H* 10/17/25 02:31 B-Natriuretic Peptide 1110 pg/ml (0-100) H 10/17/25 02:31 Total Protein 7.1 gm/dl (6.0-8.3) 10/17/25 02:31 Albumin 4.2 gm/dl (3.4-5.0) 10/17/25 02:31 Globulin 2.9 gm/dl (2.5-4.0) 10/17/25 02:31 Albumin/Globulin Ratio 1.4 (0.9-2) 10/17/25 02:31 TSH 5.082 uIu/ml (0.300-4.500) H 10/17/25 02:31 Free T4 1.48 ng/dl (0.61-1.60) 10/17/25 02:31 Impressions Chest X-Ray 10/17/25 02:31 EXAM: XR chest 1V portable CLINICAL HISTORY: Shortness of breath, hypoxia. TECHNIQUE: An X-ray image of the chest is obtained in AP projection. COMPARISON: 08/24/2025 FINDINGS: Pulmonary Parenchyma: Bilateral perihilar pulmonary congestion, with bilateral streaky linear pattern and bilateral lower zone haziness suggestive of parenchymal edema. No pulmonary nodules are identified. Bilateral CP angles blunting, could be due to pleural effusion or pleural thickening. Heart and Mediastinum: Enlarged heart shadow. No mediastinal widening or masses. No hilar or mediastinal lymphadenopathy. Bony Thorax: Bony thorax appears intact without fractures or deformities. Soft Tissues: Soft tissues overlying the chest wall are unremarkable. IMPRESSION: No apparent interval changes. Bilateral signs of pulmonary edema/pulmonary congestion. Cardiomegaly. To be correlated clinically. Electronically signed by Harshad Hagan 10-17-2025 03:41 AM Code Status & VTE Plan VTE Prophylaxis Plan VTE Prophylaxis will be ordered: Yes
[2025-10-17] MEDS ORDERED: POLYETHYLENE (MIRALAX) 17 GM PACK PO PRN (06:09)
[2025-10-17] MEDS ORDERED: CARBOHYDRATES FOR HYPOGLYCEMIA PO PRN (06:09)
[2025-10-17] MEDS ORDERED: GLUCAGON FOR INJ 1 MG VIAL SQ PRN (06:09)
[2025-10-17] MEDS ORDERED: LEVALBUTEROL 1.25 MG/3 ML NEB NEB PRN (06:09)
[2025-10-17] MEDS ORDERED: GLUCOSE 10 TAB/TUBE PO PRN (06:09)
[2025-10-17] MEDS ORDERED: NITROGLYCERIN SL 0.4 MG/TAB TAB SL PRN (06:09)
[2025-10-17] MEDS ORDERED: GLUCOSE 40% GEL 15 GM TUBE PO PRN (06:09)
[2025-10-17] MEDS ORDERED: ACETAMINOPHEN 325 MG TAB PO PRN (06:09)
[2025-10-17] MEDS ORDERED: DEXTROSE 50% 50 ML SYRINGE IV PRN (06:09)
--- NOTE | 2025-10-17 06:37 | Ultrasound Report ---
EXAM: US abdomen limited CLINICAL HISTORY: Abn LFT's. TECHNIQUE: Ultrasound examination of the RUQ was performed. Scanning was performed with the patient in the supine position. The following structures were specifically evaluated: COMPARISON: None available. FINDINGS: Very limited exam due to the patient's body habitus and breathing. Liver: Liver size: 19.8 cm. Liver appears enlarged in size with increased echogenicity, due to fatty liver. Possible Waldemar's lobe No evidence of focal lesions, cysts, or masses. Hepatic vasculature appears normal. MPV: Patent. Gallbladder: Thickened gallbladder wall measuring 1.0cm without hyperemia. Possible pericholecystic fluid visualized. Trace free fluid seen within the RUQ. No obvious stones were visualized. Biliary Tree: CBD: Unable to be clearly visualized due to the patient's body habitus. CBD at janet hepatis measures 0.35 cm. No evidence of choledocholithiasis or biliary obstruction. Unremarkable pancreas. Right Kidney: Right kidney size: 10.2 cm. The right kidney appears normal in size with preserved corticomedullary differentiation. No evidence of hydronephrosis, renal cysts, or masses. IMPRESSION: Ultrasound examination of the Right Upper Quadrant (RUQ): 1. Hepatomegaly with steatosis. 2. Thickened gallbladder wall measuring 1.0 cm without hyperemia. Possible pericholecystic fluid visualized. Trace free fluid seen within the RUQ. No obvious stones were visualized. The findings could represent gall bladder wall edema secondary to ascites, rather than acute cholecystitis. Please correlate with clinical and lab data. RECOMMENDATIONS: Clinical correlation with symptoms and further evaluation as indicated. Electronically signed by Harshad Hagan 10-17-2025 06:37 AM
[2025-10-17 07:07] LABS: Base Excess VBG 3.4 mEq/L; HCO3 VBG 31 mmol/L; Oxygen Saturation VBG 95.1 %; PCO2 VBG 61 mmHg (38-50); PO2 VBG 76 mmHg; pH VBG 7.32 (7.36-7.41)
[2025-10-17 07:11] LABS: Hematocrit (blood only) 43.7 % (37.0-47.0); Hemoglobin 14.4 g/dL (12.0-16.0); Immature Granulocytes # (auto) 0.04 K/uL (0.01-0.20); Immature Granulocytes % (auto) 0.4 %; Mean Corpuscular Hemoglobin 30.9 pg (25.0-34.0); Mean Corpuscular Volume 93.8 fL (80.0-100.0); Platelet Count 182 K/uL (130-400); RDW Standard Deviation 52.7 fL (36.4-46.3); Red Blood Count 4.66 M/uL (4.20-5.40); White Blood Count 9.46 K/ul (4.8-10.8)
[2025-10-17 07:56] LABS: Alanine Aminotransferase 1573.0 U/L (7-52); Albumin Level 3.9 gm/dl (3.4-5.0); Alkaline Phosphatase 107.0 U/L (34-104); Anion Gap 7.0 (3-11); Bilirubin,Total 2.8 mg/dl (0.2-1.0); Blood Urea Nitrogen 29.0 mg/dl (6-23); Calcium 9.0 mg/dl (8.6-10.3); Carbon Dioxide 31.0 mmol/L (21-32); Chloride 102.0 mmol/L (98-107); Creatinine Clr Calc Pharmacy 58.4 ml/min; Glucose 105.0 mg/dl (70-99(Fasting)); Magnesium 2.0 mg/dl (1.7-2.4); Potassium 4.1 mmol/L (3.5-5.1); Sodium 140.0 mmol/L (136-145); Total Protein 6.4 gm/dl (6.0-8.3)
[2025-10-17] MEDS: INSULIN ASPART PER UNIT CHARGE SC SCH ×2 (08:08→11:36)
[2025-10-17 08:38] LABS: Hemoglobin A1C 6.3 % (4.5-5.6)
--- NOTE | 2025-10-17 09:14 | Cardiology Consultation ---
Date of Consultation October 17, 2025 Assessment & Plan (1) Acute on chronic HFrEF (heart failure with reduced ejection fraction): (2) Permanent atrial fibrillation: (3) Ischemic cardiomyopathy: (4) Abnormal LFTs: Plan Assessment: 45 year old female with complex coronary disease, HFrEF, Ischemic cardiomyopathy, permenet A-fib and medication non-compliance admitted for several days of progressively worsening shortness of breath. Cardiology consulted for further evaluation and recommendation. Plan: Acute on chronic HFrEF Permanent atrial fibrillation Ischemic cardiomyopathy Abnormal LFTs -patient demonstrates evidence of volume overload on exam. She admits that she has run out of some of her medications which likely precipitated the event. -EKG with no acute ischemic changes. Troponin elevation likely demand ischemia due to hypervolemia and hypoxia. patient denies any chest pain -EKG low voltage, but shows Atrial fibrillation. given low voltage EKG and elevated troponin will obtain resting echocardiogram to assess for any new wall motion abnormalities or for any concern of pericardial effusion. Most recent echo dated 08/25/2025 shows severely reduced LVEF of 25-30% with severe global hypokinesis, severely dilated left atrium and moderate MR. -Strict I and O with daily weights. -Close monitoring of renal function and serum electrolytes. -Goal serum K > 4.0 and serum Mag > 2.0. -Continue Furosemide 40mg IV BID -Wean Bipap as appropriate per primary team. -Continue Eliquis 5mg PO BID, Jardiance 10mg QD, Atorvastatin 80mg QD, Plavix 75mg QD -Blood pressures stable. -No acute events on telemetry -Will await echocardiogram and will ressess fluid status in the AM -Abnormal LFTs--further workup as indicated by primary team Case has been discussed with Dr. Fiore. Further recommendations regarding plan of care as per her assessment. I spent a total of 50 minutes on the date of service in preparation, delivery, documentation of the care provided to the patient excluding any time spent in the performance of separately billed services. JOSUE Garcia [facility] Cardiology [facility] Supervising Physician Co-Signing Physician Notes I have reviewed the advanced practitioner's documentation on the date of service referenced in note, and I agree with, and take responsibility for the plan of care. I spent a total of [30] minutes coordinating, documenting, and providing care for this patient excluding time spent in the performance of separately billed services or time spent by another provider. 45-year-old female with history of coronary artery disease ischemic cardiomyopathy and a severely reduced ejection fraction atrial fibrillation presented with worsening shortness of breath and heart failure Continue with diuresis Low-salt diet History of Present Illness Reason for Consultation: Acute CHF, elevated troponin Requesting Physician: Les madrigalist Attending Physician: Maggie Kingsley MD History of Present Illness HPI: Patient is a 45-year-old female with past medical history significant for Complex CAD with prior interventions to the LAD and RCA at [facility] [place] 2023, chronic systolic CHF, COPD, obstructive sleep apnea, dyslipidemia, prediabetes, chronic atrial fibrillation, history of thrombosis of right internal jugular vein, history of non-ST elevated MN, history of CAD s/p angioplasty with stent, hypertension, pulmonary hypertension, history of right MCA CVA, mediastinal lymphadenopathy, obesity, CKD stage III, migraine, 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 SPO2 84% and she was placed on Bipap. Upon seeing patient is examination today she is feeling "much better", she is alert and tolerating Bipap well. She was able to remove her bipap to carry on a conversation without distress. She states that she was feeling well at the time of discharge, but had run out of some of the medications she was prescribed and therefore had not had what she needed. She also has not been able to get her CPAP machine, unsure of the dynamics related to that. of note, Patient was recently hospitalized at [facility] for acute on chronic heart failure. Discharged 08/28/25 likely due to non-compliance She denies chest pain, pressure or palpitations. She reports improved breathing, no near syncope or syncope. notes mild lower extremity edema. History as obtained from outpatient Cardiology notes: 1. CAD -s/p PCI with stenting (Vision 3.0 x 15) of the mLAD and second diagonal branch at the bifurcation in 2005 ([place]) -Most recent repeat cardiac catheterization took place 09/22/2024 at [facility] [place] with findings of 80% mid right coronary stenosis, 80% right posterolateral branch stenosis and 90% distal right posterolateral branch stenosis, 70% proximal LAD stenosis, 70% mid LAD stenosis with in-stent restenosis and distal to the LAD stent the mid LAD had a 90% stenosis Patient therefore underwent PCI of the proximal to mid LAD with overlapping [place] drug-eluting stents, successful PCI of the proximal to mid right coronary artery with overlapping Adam drug-eluting stents, stenting of the right posterolateral branch with overlapping Adam drug-eluting stents -Circumflex coronary was described as a medium caliber vessel with mild disease 2.Ischemic cardiomyopathy with chronic heart failure with reduced ejection fraction 3.Permanent atrial fibrillation 4. Right MCA CVA (2018), 6. HTN, 7. Dyslipidemia, 8. Other: Anxiety, Obesity, Obstructive lung disease, LINSEY/CPAP, pulmonary embolism RLL (07/2021), tobacco use EKG Atrial fibrillation Rate 100bpm, low voltage QRS. Chest X-ray on admission: IMPRESSION: No apparent interval changes. Bilateral signs of pulmonary edema/pulmonary congestion. Cardiomegaly. To be correlated clinically. Abdominal US: IMPRESSION: Ultrasound examination of the Right Upper Quadrant (RUQ): 1. Hepatomegaly with steatosis. 2. Thickened gallbladder wall measuring 1.0 cm without hyperemia. Possible pericholecystic fluid visualized. Trace free fluid seen within the RUQ. No obvious stones were visualized. The findings could represent gall bladder wall edema secondary to ascites, rather than acute cholecystitis. Please correlate with clinical and lab data. RECOMMENDATIONS: Clinical correlation with symptoms and further evaluation as indicated. High sensitivity troponin 326.5/281.9 BNP 1110 Review of telemety shows A-fib rates 70's. Allergies Allergy/AdvReac Type Severity Reaction Status Date / Time No Known Allergies Allergy Unverified 08/24/25 14:00 Home Medications Medication Instructions Recorded Confirmed Type apixaban 5 mg tablet (Eliquis) 5 mg PO BID 10/17/25 10/17/25 History atorvastatin 80 mg tablet 80 mg PO DAILY 10/17/25 10/17/25 History clopidogrel 75 mg tablet 75 mg PO DAILY 10/17/25 10/17/25 History digoxin 250 mcg (0.25 mg) tablet 250 mcg PO DAILY 10/17/25 10/17/25 History empagliflozin 10 mg tablet 10 mg PO DAILY 10/17/25 10/17/25 History (Jardiance) fluoxetine 20 mg capsule 20 mg PO DAILY 10/17/25 10/17/25 History furosemide 40 mg tablet 40 mg PO BID 10/17/25 10/17/25 History losartan 25 mg tablet 12.5 mg PO DAILY 10/17/25 10/17/25 History metoprolol succinate 100 mg 100 mg PO DAILY 10/17/25 10/17/25 History tablet,extended release 24 hr potassium chloride 10 mEq 10 meq PO DAILY 10/17/25 10/17/25 History capsule,extended release sacubitril 24 mg-valsartan 26 mg 1 tab PO BID 10/17/25 10/17/25 History tablet (Entresto) spironolactone 25 mg tablet 12.5 mg PO DAILY 10/17/25 10/17/25 History Patient History Medical History Anxiety COPD (chronic obstructive pulmonary disease) Tobacco use Morbid obesity LINSEY (obstructive sleep apnea) Permanent atrial fibrillation Chronic HFrEF (heart failure with reduced ejection fraction) Dilated cardiomyopathy HTN (hypertension) Dyslipidemia CAD (coronary artery disease) Surgical History History of cardiac catheterization History of tonsillectomy and adenoidectomy Family History Other Hypertension Stroke Social History Smoking Status: Current every day smoker Tobacco Type: Cigarettes Cigarettes Per Day: 1; Second Hand Exposure: No; Do You Dip or Chew Tobacco: No; Hx Alcohol Use: Yes Hx Substance Use: No Preferred Language: Japanese Communication Ability: Effective Horseradish Grinder Required: No Beliefs That Will Affect Care: None Current Living Situation: Family Feels Safe at Home: Yes Assistive Devices: Denture - Upper and Denture - Lower Review of Systems Review of Systems: All systems reviewed & are unremarkable except as noted in HPI & below Physical Exam Constitutional: well developed, well nourished and + overweight; no acute distress Neck: normal visual inspection and trachea midline Respiratory: normal respiratory effort and + cough; no respiratory distress and no labored breathing Auscultation: + diminished lung sounds (bilateral bases ); no crackles, no rales, no rhonchi and no wheezes Cardiovascular: Rate/Rhythm: + irregularly irregular Heart Sounds: normal S1 and normal S2; no murmur Vessels: dorsalis pedis pulses present; no JVD Extremities: + edema (trace to +1 BLE) Skin: no rashes, warm and dry Psychiatric: A+Ox3, euthymic affect Results & Data Vital Signs (Past 12 Hours) Vital Signs Temp Pulse Pulse Resp BP BP Pulse Ox 10/17/25 08:12 78 20 97 10/17/25 08:10 36.6 C 76 17 105/70 97 10/17/25 07:07 85 21 97 10/17/25 07:05 83 10/17/25 06:10 10/17/25 06:10 85 20 112/92 98 10/17/25 06:09 10/17/25 05:51 92 H 10/17/25 04:00 96 H 20 117/83 100 10/17/25 03:37 102 H 21 100 10/17/25 03:34 104 H 23 100 10/17/25 02:44 84 L 10/17/25 02:38 10/17/25 02:36 106 H 10/17/25 02:30 104 H 20 104/68 100 10/17/25 02:18 36.4 C L 105 H 26 H 104/68 84 L Pulse Ox O2 Del Method O2 Del Method O2 Flow Rate FiO2 10/17/25 08:12 CPAP 10/17/25 08:10 Room Air 10/17/25 07:07 40 10/17/25 07:05 10/17/25 06:10 BiPAP 40 10/17/25 06:10 BiPAP 40 10/17/25 06:09 96 BiPAP 10/17/25 05:51 10/17/25 04:00 BiPAP 0 40 10/17/25 03:37 40 10/17/25 03:34 BiPAP 40 10/17/25 02:44 Nasal Cannula 0 10/17/25 02:38 Nasal Cannula 4 10/17/25 02:36 10/17/25 02:30 BiPAP 0 40 10/17/25 02:18 Room Air Laboratory Results Cardiac Enzymes 10/17/25 10/17/25 Range/Units 02:31 06:51 AST 1655 H 2295 H (13-39) U/L Troponin I High Sens 326.5 H* 281.9 H* (0-14) pg/ml B-Natriuretic Peptide 1110 H (0-100) pg/ml Coagulation 10/17/25 Range/Units 02:31 PT 17.2 H (9.0-12.0) Seconds B-Natriuretic Peptide 1110 H (0-100) pg/ml CBC 10/17/25 10/17/25 Range/Units 02:31 06:56 WBC 9.97 9.46 (4.8-10.8) K/ul RBC 4.80 4.66 (4.20-5.40) M/uL Hgb 15.6 14.4 (12.0-16.0) g/dL Hct 46.1 43.7 (37.0-47.0) % Plt Count 202 182 (130-400) K/uL Neut # (Auto) 8.46 H 7.78 H (1.40-6.50) K/uL Lymph # (Auto) 0.84 L 0.88 L (1.20-3.40) K/uL [place] # (Auto) 0.58 0.75 H (0.11-0.59) K/uL Eos # (Auto) 0.01 0.00 (0.00-0.50) K/uL Baso # (Auto) 0.02 0.01 (0.00-0.20) K/uL Comprehensive Metabolic Panel 10/17/25 10/17/25 Range/Units 02:31 06:51 Sodium 136 140 (136-145) mmol/L Potassium 6.8 H* 4.1 D (3.5-5.1) mmol/L Chloride 100 102 (98-107) mmol/L Carbon Dioxide 28 31 (21-32) mmol/L BUN 29 H 29 H (6-23) mg/dl Creatinine 1.85 H 1.64 H (0.6-1.2) mg/dl Glucose 98 105 H (70-99(Fasting)) mg/dl Calcium 9.4 9.0 (8.6-10.3) mg/dl Direct Bilirubin 1.0 H (0-0.2) mg/dl AST 1655 H 2295 H (13-39) U/L ALT 1389 H 1573 H (7-52) U/L Alkaline Phosphatase 132 H 107 H (34-104) U/L Total Protein 7.1 6.4 (6.0-8.3) gm/dl Albumin 4.2 3.9 (3.4-5.0) gm/dl Intake and Output 10/16/25 10/17/25 10/17/25 22:59 06:59 14:59 Intake Total 237 / 237 Balance 237 / 237 Intake: IV 60 / 60 Calcium Gluconate 1,000 mg In 60 / 60 60 ml @ 240 mls/hr IV NOW STA Rx#:[id number] Oral 177 / 177 Other: # Unmeasured Voids 1 Weight 129.1 kg 126.5 kg Weight Measurement Method [facility] in [facility] Patient Weight 10/18/25 06:59 Weight 126.5 kg Diagnostic Findings Cardiac cath 09/22/24 [facility] with Dr. Sifuentes -Hemodynamically significant CAD -Mid-RCA80% stenosis, RPL 80% and 90% stenosis -Proximal LAD 70% stenosis -Mid LAD ISR with 70% stenosis -Mid LAD distal to the stent has 90% stenosis -s/p successful PCI of prox to mid-LAD with overlapping WILBER -successful PCI of RPL with overlapping adam WILBER -Intravascular ultrasound of RCA strong consideration to remain on anti-platelet and DOAC indefinitely given number of stents PG Care Time/CCT Total # of Minutes Spent Total Time Spent with Patient: Total time spent is greater than 50% in coordination of care (as documented) at patient's floor/unit and/or counseling patient: Coding Level of Care Code 90139 IN/OBS CONSULT LVL 5,80M Diagnoses Acute on chronic HFrEF (heart failure with reduced ejection fraction) I50.23 Permanent atrial fibrillation I48.21 Ischemic cardiomyopathy I25.5 Abnormal LFTs R79.89 Time Spent (min) 50
--- NOTE | 2025-10-17 09:23 | Gastrointestinal Consultation ---
Date of Consultation October 17, 2025 Assessment & Plan (1) Abnormal LFTs: Suspect related to underlying cardiac disease likely ischemic hepatitis due to low flow during recent acute exacerbation of her heart failure. Doubt infectious causes or drug-induced. Should improve with improvement in cardiopu lmonary status. Will send off acute hepatitis viral panel. Continue to monitor liver studies daily. No signs of signs of encephalopathy at this time. History of Present Illness Reason for Consultation: Abnormal liver enzymes Attending Physician: Maggie Kingsley MD History of Present Illness Patient with longstanding severe cardiopulmonary disease, history of CVA. Admitted with acute on chronic congestive heart failure. Found to have markedly abnormal liver enzymes. Denies any history of underlying liver disease no history of chronic hepatitis no significant alcohol abuse no recent toxic ingestions. Imaging of the liver shows a large liver possible steatosis as well. Allergies Allergy/AdvReac Type Severity Reaction Status Date / Time No Known Allergies Allergy Unverified 08/24/25 14:00 Home Medications Medication Instructions Recorded Confirmed Type apixaban 5 mg tablet (Eliquis) 5 mg PO BID 10/17/25 10/17/25 History atorvastatin 80 mg tablet 80 mg PO DAILY 10/17/25 10/17/25 History clopidogrel 75 mg tablet 75 mg PO DAILY 10/17/25 10/17/25 History digoxin 250 mcg (0.25 mg) tablet 250 mcg PO DAILY 10/17/25 10/17/25 History empagliflozin 10 mg tablet 10 mg PO DAILY 10/17/25 10/17/25 History (Jardiance) fluoxetine 20 mg capsule 20 mg PO DAILY 10/17/25 10/17/25 History furosemide 40 mg tablet 40 mg PO BID 10/17/25 10/17/25 History losartan 25 mg tablet 12.5 mg PO DAILY 10/17/25 10/17/25 History metoprolol succinate 100 mg 100 mg PO DAILY 10/17/25 10/17/25 History tablet,extended release 24 hr potassium chloride 10 mEq 10 meq PO DAILY 10/17/25 10/17/25 History capsule,extended release sacubitril 24 mg-valsartan 26 mg 1 tab PO BID 10/17/25 10/17/25 History tablet (Entresto) spironolactone 25 mg tablet 12.5 mg PO DAILY 10/17/25 10/17/25 History Patient History Medical History Anxiety COPD (chronic obstructive pulmonary disease) Tobacco use Morbid obesity LINSEY (obstructive sleep apnea) Permanent atrial fibrillation Chronic HFrEF (heart failure with reduced ejection fraction) Dilated cardiomyopathy HTN (hypertension) Dyslipidemia CAD (coronary artery disease) Surgical History History of cardiac catheterization History of tonsillectomy and adenoidectomy Family History Other Hypertension Stroke Social History Smoking Status: Current every day smoker Tobacco Type: Cigarettes Cigarettes Per Day: 1; Second Hand Exposure: No; Do You Dip or Chew Tobacco: No; Tobacco Cessation Education Requested by Patient: No Hx Alcohol Use: Yes Hx Substance Use: No Preferred Language: Czech Communication Ability: Effective Private Equity Associate Required: No Beliefs That Will Affect Care: None Current Living Situation: Family Other Information That Helps Us Care for You: No Feels Safe at Home: Yes Safety Concerns: Feels Safe At This Time Assistive Devices: Denture - Upper and Denture - Lower Review of Systems Review of Systems: No fever No chills SOB No CP No Abd pain Physical Exam Physical Exam: Eyes; anicteric HENT No masses Chest clear to A Cor S1, S2 physiologic Abd: softer nontender no masses Ext no edema Results & Data Vital Signs (Past 12 Hours) Vital Signs Temp Pulse Pulse Resp BP BP Pulse Ox 10/17/25 08:12 78 20 97 10/17/25 08:10 36.6 C 76 17 105/70 97 10/17/25 07:07 85 21 97 10/17/25 07:05 83 10/17/25 06:10 10/17/25 06:10 85 20 112/92 98 10/17/25 06:09 10/17/25 05:51 92 H 10/17/25 04:00 96 H 20 117/83 100 10/17/25 03:37 102 H 21 100 10/17/25 03:34 104 H 23 100 10/17/25 02:44 84 L 10/17/25 02:38 10/17/25 02:36 106 H 10/17/25 02:30 104 H 20 104/68 100 10/17/25 02:18 36.4 C L 105 H 26 H 104/68 84 L Pulse Ox O2 Del Method O2 Del Method O2 Flow Rate FiO2 10/17/25 08:12 CPAP 10/17/25 08:10 Room Air 10/17/25 07:07 40 10/17/25 07:05 10/17/25 06:10 BiPAP 40 10/17/25 06:10 BiPAP 40 10/17/25 06:09 96 BiPAP 10/17/25 05:51 10/17/25 04:00 BiPAP 0 40 10/17/25 03:37 40 10/17/25 03:34 BiPAP 40 10/17/25 02:44 Nasal Cannula 0 10/17/25 02:38 Nasal Cannula 4 10/17/25 02:36 10/17/25 02:30 BiPAP 0 40 10/17/25 02:18 Room Air Laboratory Results Laboratory Results - last 48 hr 10/17/25 10/17/25 10/17/25 02:31 02:54 04:54 WBC 9.97 RBC 4.80 Hgb 15.6 Hct 46.1 MCV 96.0 MCH 32.5 MCHC 33.8 RDW Std Deviation 54.1 H RDW Coeff of Neal 15.4 H Plt Count 202 MPV 9.8 Immature Gran % (Auto) 0.6 Neut % (Auto) 84.9 Lymph % (Auto) 8.4 [place] % (Auto) 5.8 Eos % (Auto) 0.1 Baso % (Auto) 0.2 Neut # (Auto) 8.46 H Lymph # (Auto) 0.84 L [place] # (Auto) 0.58 Eos # (Auto) 0.01 Baso # (Auto) 0.02 Immature Gran # (Auto) 0.06 PT 17.2 H INR 1.7 H VBG pH 7.23 L VBG pCO2 64 H VBG pO2 23 VBG HCO3 27 VBG O2 Saturation < 60.0 VBG Base Excess -2.1 Sodium 136 Potassium 6.8 H* Chloride 100 Carbon Dioxide 28 Anion Gap 8 BUN 29 H Creatinine 1.85 H Est Cr Clr Drug Dosing 51.8 eGFR 33.42 BUN/Creatinine Ratio 15.7 Glucose 98 POC Glucose 164 H Estimat Average Glucose Hemoglobin A1c Calcium 9.4 Phosphorus 5.6 H Magnesium 2.0 Total Bilirubin 3.6 H Direct Bilirubin AST 1655 H ALT 1389 H Alkaline Phosphatase 132 H Troponin I High Sens 326.5 H* B-Natriuretic Peptide 1110 H Total Protein 7.1 Albumin 4.2 Globulin 2.9 Albumin/Globulin Ratio 1.4 Procalcitonin TSH 5.082 H Free T4 1.48 Acetaminophen 10/17/25 10/17/25 10/17/25 06:51 06:56 08:06 WBC 9.46 RBC 4.66 Hgb 14.4 Hct 43.7 MCV 93.8 MCH 30.9 MCHC 33.0 RDW Std Deviation 52.7 H RDW Coeff of Neal 15.7 H Plt Count 182 MPV 10.0 Immature Gran % (Auto) 0.4 Neut % (Auto) 82.3 Lymph % (Auto) 9.3 [place] % (Auto) 7.9 Eos % (Auto) 0.0 Baso % (Auto) 0.1 Neut # (Auto) 7.78 H Lymph # (Auto) 0.88 L [place] # (Auto) 0.75 H Eos # (Auto) 0.00 Baso # (Auto) 0.01 Immature Gran # (Auto) 0.04 PT INR VBG pH 7.32 L VBG pCO2 61 H VBG pO2 76 VBG HCO3 31 VBG O2 Saturation 95.1 VBG Base Excess 3.4 Sodium 140 Potassium 4.1 D Chloride 102 Carbon Dioxide 31 Anion Gap 7 BUN 29 H Creatinine 1.64 H Est Cr Clr Drug Dosing 58.4 eGFR 38.62 BUN/Creatinine Ratio 17.7 Glucose 105 H POC Glucose 94 Estimat Average Glucose 134 Hemoglobin A1c 6.3 H Calcium 9.0 Phosphorus Magnesium 2.0 Total Bilirubin 2.8 H Direct Bilirubin 1.0 H AST 2295 H ALT 1573 H Alkaline Phosphatase 107 H Troponin I High Sens 281.9 H* B-Natriuretic Peptide Total Protein 6.4 Albumin 3.9 Globulin Albumin/Globulin Ratio Procalcitonin 0.24 TSH Free T4 Acetaminophen < 3 L Diagnostic Findings Chest X-Ray 10/17/25 02:31 EXAM: XR chest 1V portable CLINICAL HISTORY: Shortness of breath, hypoxia. TECHNIQUE: An X-ray image of the chest is obtained in AP projection. COMPARISON: 08/24/2025 FINDINGS: Pulmonary Parenchyma: Bilateral perihilar pulmonary congestion, with bilateral streaky linear pattern and bilateral lower zone haziness suggestive of parenchymal edema. No pulmonary nodules are identified. Bilateral CP angles blunting, could be due to pleural effusion or pleural thickening. Heart and Mediastinum: Enlarged heart shadow. No mediastinal widening or masses. No hilar or mediastinal lymphadenopathy. Bony Thorax: Bony thorax appears intact without fractures or deformities. Soft Tissues: Soft tissues overlying the chest wall are unremarkable. IMPRESSION: No apparent interval changes. Bilateral signs of pulmonary edema/pulmonary congestion. Cardiomegaly. To be correlated clinically. Electronically signed by Harshad Hagan 10-17-2025 03:41 AM Abdomen Ultrasound 10/17/25 03:57 EXAM: US abdomen limited CLINICAL HISTORY: Abn LFT's. TECHNIQUE: Ultrasound examination of the RUQ was performed. Scanning was performed with the patient in the supine position. The following structures were specifically evaluated: COMPARISON: None available. FINDINGS: Very limited exam due to the patient's body habitus and breathing. Liver: Liver size: 19.8 cm. Liver appears enlarged in size with increased echogenicity, due to fatty liver. Possible Waldemar's lobe No evidence of focal lesions, cysts, or masses. Hepatic vasculature appears normal. MPV: Patent. Gallbladder: Thickened gallbladder wall measuring 1.0cm without hyperemia. Possible pericholecystic fluid visualized. Trace free fluid seen within the RUQ. No obvious stones were visualized. Biliary Tree: CBD: Unable to be clearly visualized due to the patient's body habitus. CBD at janet hepatis measures 0.35 cm. No evidence of choledocholithiasis or biliary obstruction. Unremarkable pancreas. Right Kidney: Right kidney size: 10.2 cm. The right kidney appears normal in size with preserved corticomedullary differentiation. No evidence of hydronephrosis, renal cysts, or masses. IMPRESSION: Ultrasound examination of the Right Upper Quadrant (RUQ): 1. Hepatomegaly with steatosis. 2. Thickened gallbladder wall measuring 1.0 cm without hyperemia. Possible pericholecystic fluid visualized. Trace free fluid seen within the RUQ. No obvious stones were visualized. The findings could represent gall bladder wall edema secondary to ascites, rather than acute cholecystitis. Please correlate with clinical and lab data. RECOMMENDATIONS: Clinical correlation with symptoms and further evaluation as indicated. Electronically signed by Harshad Hagan 10-17-2025 06:37 AM PG Care Time/CCT Total # of Minutes Spent Total Time Spent with Patient: Total time spent is greater than 50% in coordination of care (as documented) at patient's floor/unit and/or counseling patient: Coding Level of Care Code 25083 INT INP/OBS CARE MIN Diagnoses Abnormal LFTs R79.89
[2025-10-17] MEDS: APIXABAN 5 MG TABLET PO SCH (09:34)
[2025-10-17] MEDS: CLOPIDOGREL BISULFATE 75 MG TAB PO SCH (09:34)
[2025-10-17] MEDS: ATORVASTATIN 40 MG TAB PO SCH (09:35)
[2025-10-17] MEDS: METOPROLOL SUCC 50MG EXT REL TAB PO SCH (09:35)
[2025-10-17] MEDS: FUROSEMIDE 40 MG/4 ML VIAL IV SCH (09:35)
[2025-10-17] MEDS: SODIUM ZIRCONIUM CYCLOSILICATE 10 GM PACKET PO SCH (09:36)
--- NOTE | 2025-10-17 09:44 | Electrocardiogram Report ---
Test Reason : Blood Pressure : */* mmHG Vent. Rate : 100 BPM Atrial Rate : * BPM P-R Int : * ms QRS Dur : 100 ms QT Int : 378 ms P-R-T Axes : * 9 -33 degrees QTcB Int : 487 ms Atrial fibrillation Low voltage QRS Possible Anterolateral infarct , age undetermined Abnormal ECG When compared with ECG of 25-Aug-2025 05:42, Borderline criteria for Anterior infarct are now Present Borderline criteria for Anterolateral infarct are now Present Nonspecific T wave abnormality, improved in Anterolateral leads Confirmed by Anthony Sorenson ([id number]) on 10/17/2025 9:44:31 AM Referred By: REFERRED SELF Confirmed By: Anthony Sorenson
[2025-10-17] MEDS: EMPAGLIFLOZIN 10 MG TAB PO SCH (10:00)
[2025-10-17 11:18] LABS: Hep B Surface Ag with confirm Negative (Negative)
[2025-10-17 11:24] LABS: Hep C Ab Rflx HepCQuant RNA Negative (Negative)
--- NOTE | 2025-10-17 13:07 | Communication Note ---
Date of Service: October 17, 2025 Patient seen and examined Reports SOB over the past few days. Reports mild chronic cough Denied any chest pain Patient has LINSEY. Reports she has not been compliant with CPAP due to machine being old and poorly tolerating it Smokes daily 1 pack lasts a few days Currently on CPAP Labs on admission noted K of 6.8, Cr 1.85, Tbil 3.6, AST 1655, ALT 1389, Alk P 132, Trop 326->281, BNP 1110 Abd USS noted hepatomegaly with steatosis, thickened gall bladder. Possible pericholecystic fluid CXR noted pulm edema/congestion Continue IV lasix Elevated LFT likely due to congestive hepatopathy from CHF Hyperkalemia resolved Will follow up I/O, daily weights Will follow up Cards eval Counseled regarding smoking cessation Continue current meds Other plans as detailed in H/P
--- NOTE | 2025-10-17 13:54 | Nephrology Consultation ---
Date of Consultation October 17, 2025 Assessment & Plan (1) Hyperkalemia: medications induced--she is on Aldactone, Kcl supplement and also ARB. She cant be on this many drugs. Stop kcl and Stop Aldactone at discharge for now. Maybe able to restart Aldactone later on Also needs a higher baseline loop diuretics to manage fluid and k status. Now normal after medical therapy. K was found to be high at 6.8 which prompted call to me at 4 AM earlier today. I did give medical advice regarding that over the phone to ED (2) Abnormal LFTs: Liiely related to hepatic congestion from CHF (3) Acute on chronic HFrEF (heart failure with reduced ejection fraction): Most likely her primary issue. Needs a much higher dose diuretics. will do lasix 40 iv q8hr. hepatic congestion from CHF means grossly inadequate diuresis. for now No Kcl and no Aldactone. also no ARB. Daily labs. likely needs a more advanced CHF therapy including heart transplant--defer to cards. Also likely needs a higher baseline loop diuretics to manage fluid and k status. 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 She has some cough also. K was found to be high at 6.8 which prompted call to me at 4 AM earlier today. I did give medical advice regarding that over the phone to ED. In the ER she was saturating 84% and placed on BiPAP. No abdominal pain. Normal bowel and bladder movements. Ambulates without support. Patient was recently in the hospital and was discharged on 08/28/2025. She was admitted for acute on chronic heart failure with reduced ejection fraction. Echo on 08/25/2025 shows EF of 25 to 30%. Decline in EF thought to be from noncompliance with medications. Her symptoms improved with diuretics. As she was not able to afford Entresto and she was placed on losartan 12.5 mg daily and is also on kcl and aldactone She was supposed to get LifeVest at home. As per aunt she did not had LifeVest yet. Also her CPAP was not working and supposed to get new CPAP machine but not delivered yet and she is not using CPAP for about a month now.Denies taking any Tylenol. Since admission K is now normal and creat has stabilized. Also has Congestive hepatic issue with high LFT. Still on Bipap though. ROS--see HPI./ Systems reviewed and negative. Physical Exam Physical Exam: General- Not in distress. Bipap. Neck- supple, +ve JVD. Lungs- mild bibasilar crackles Heart- irrregular, + Sys murmur Abdomen- soft, nontender, no distension Extremities- b/l 1+ edema present Neuro- alert, oriented moves extremities Allergies Allergy/AdvReac Type Severity Reaction Status Date / Time No Known Allergies Allergy Unverified 08/24/25 14:00 Home Medications Medication Instructions Recorded Confirmed Type apixaban 5 mg tablet (Eliquis) 5 mg PO BID 10/17/25 10/17/25 History atorvastatin 80 mg tablet 80 mg PO DAILY 10/17/25 10/17/25 History clopidogrel 75 mg tablet 75 mg PO DAILY 10/17/25 10/17/25 History digoxin 250 mcg (0.25 mg) tablet 250 mcg PO DAILY 10/17/25 10/17/25 History empagliflozin 10 mg tablet 10 mg PO DAILY 10/17/25 10/17/25 History (Jardiance) fluoxetine 20 mg capsule 20 mg PO DAILY 10/17/25 10/17/25 History furosemide 40 mg tablet 40 mg PO BID 10/17/25 10/17/25 History losartan 25 mg tablet 12.5 mg PO DAILY 10/17/25 10/17/25 History metoprolol succinate 100 mg 100 mg PO DAILY 10/17/25 10/17/25 History tablet,extended release 24 hr potassium chloride 10 mEq 10 meq PO DAILY 10/17/25 10/17/25 History capsule,extended release sacubitril 24 mg-valsartan 26 mg 1 tab PO BID 10/17/25 10/17/25 History tablet (Entresto) spironolactone 25 mg tablet 12.5 mg PO DAILY 10/17/25 10/17/25 History Patient History Medical History Anxiety COPD (chronic obstructive pulmonary disease) Tobacco use Morbid obesity LINSEY (obstructive sleep apnea) Permanent atrial fibrillation Chronic HFrEF (heart failure with reduced ejection fraction) Dilated cardiomyopathy HTN (hypertension) Dyslipidemia CAD (coronary artery disease) Surgical History History of cardiac catheterization History of tonsillectomy and adenoidectomy Family History Other Hypertension Stroke Social History Smoking Status: Current every day smoker Tobacco Type: Cigarettes Cigarettes Per Day: 1; Second Hand Exposure: No; Do You Dip or Chew Tobacco: No; Hx Alcohol Use: Yes Hx Substance Use: No Preferred Language: Georgian Communication Ability: Effective International Marketing Specialist Required: No Beliefs That Will Affect Care: None Current Living Situation: Family Feels Safe at Home: Yes Assistive Devices: Denture - Upper and Denture - Lower Results & Data Vital Signs (Past 12 Hours) Vital Signs Temp Pulse Pulse Resp BP BP Pulse Ox 10/17/25 12:57 73 10/17/25 12:10 36.5 C 68 20 100/70 96 10/17/25 10:59 73 95/72 L 10/17/25 10:35 69 20 90/69 L 97 10/17/25 08:12 78 20 97 10/17/25 08:10 36.6 C 76 17 105/70 97 10/17/25 07:07 85 21 97 10/17/25 07:05 83 10/17/25 06:10 10/17/25 06:10 85 20 112/92 98 10/17/25 06:09 10/17/25 05:51 92 H 10/17/25 04:00 96 H 20 117/83 100 10/17/25 03:37 102 H 21 100 10/17/25 03:34 104 H 23 100 10/17/25 02:44 84 L 10/17/25 02:38 10/17/25 02:36 106 H 10/17/25 02:30 104 H 20 104/68 100 10/17/25 02:18 36.4 C L 105 H 26 H 104/68 84 L Pulse Ox O2 Del Method O2 Del Method O2 Flow Rate FiO2 10/17/25 12:57 10/17/25 12:10 BiPAP 10/17/25 10:59 10/17/25 10:35 BiPAP 10/17/25 08:12 CPAP 10/17/25 08:10 Room Air 10/17/25 07:07 40 10/17/25 07:05 10/17/25 06:10 BiPAP 40 10/17/25 06:10 BiPAP 40 10/17/25 06:09 96 BiPAP 10/17/25 05:51 10/17/25 04:00 BiPAP 0 40 10/17/25 03:37 40 10/17/25 03:34 BiPAP 40 10/17/25 02:44 Nasal Cannula 0 10/17/25 02:38 Nasal Cannula 4 10/17/25 02:36 10/17/25 02:30 BiPAP 0 40 10/17/25 02:18 Room Air Diagnostic Findings CBC and renal panel. cardiac enzymes CXR chf
--- NOTE | 2025-10-17 15:53 | XCELERA ---
[id number] \\[email or web address]_[email or web address]\[id number]
[2025-10-18 05:45] LABS: Hematocrit (blood only) 43.4 % (37.0-47.0); Hemoglobin 14.0 g/dL (12.0-16.0); Mean Corpuscular Hemoglobin 31.3 pg (25.0-34.0); Mean Corpuscular Volume 96.9 fL (80.0-100.0); Platelet Count 169 K/uL (130-400); RDW Standard Deviation 54.9 fL (36.4-46.3); Red Blood Count 4.48 M/uL (4.20-5.40); White Blood Count 6.38 K/ul (4.8-10.8)
[2025-10-18 06:18] LABS: Alanine Aminotransferase 1146.0 U/L (7-52); Albumin Globulin Ratio 1.4 (0.9-2); Albumin Level 3.5 gm/dl (3.4-5.0); Alkaline Phosphatase 96.0 U/L (34-104); Anion Gap 7.0 (3-11); Bilirubin,Total 1.8 mg/dl (0.2-1.0); Blood Urea Nitrogen 39.0 mg/dl (6-23); Calcium 8.8 mg/dl (8.6-10.3); Carbon Dioxide 30.0 mmol/L (21-32); Chloride 101.0 mmol/L (98-107); Creatinine Clr Calc Pharmacy 58.3 ml/min; Globulin 2.5 gm/dl (2.5-4.0); Glucose 98.0 mg/dl (70-99(Fasting)); Magnesium 2.0 mg/dl (1.7-2.4); Potassium 3.9 mmol/L (3.5-5.1); Sodium 138.0 mmol/L (136-145); Total Protein 6.0 gm/dl (6.0-8.3)
--- NOTE | 2025-10-18 08:28 | Gastroenterology Progress Note ---
Date of Service October 18, 2025 Assessment & Plan (1) Abnormal LFTs: Plan: Liver enzymes improving and normalizing as cardiopulmonary status improves consistent with ischemic hepatitis. No signs of decompensation. Continue to monitor liver enzymes and optimize cardiopulmonary status. Hepatitis serologies pending. Admission and Anticipated Discharge Date Admission Date: October 17, 2025 Subjective Awake alert resting comfortably denies any abdominal pain. Feeling better. Physical Exam Physical Exam: No acute distress Respiratory rate regular Cardiac rhythm regular Abdomen soft nontender Results & Data Results & Data Vital Signs (Past 12 Hours) Vital Signs Temp Pulse Pulse Resp BP Pulse Ox O2 Del Method 10/18/25 07:03 36.3 C L 68 18 102/71 97 BiPAP 10/18/25 07:00 65 10/18/25 02:55 71 18 97 10/18/25 02:30 36.5 C 73 18 116/88 96 BiPAP 10/17/25 22:35 36.9 C 79 18 100/69 95 Nasal Cannula 10/17/25 21:00 BiPAP O2 Flow Rate FiO2 10/18/25 07:03 10/18/25 07:00 10/18/25 02:55 40 10/18/25 02:30 10/17/25 22:35 3 10/17/25 21:00 Laboratory Results Laboratory Results - last 48 hr 10/17/25 10/17/25 10/17/25 02:31 02:54 04:54 WBC 9.97 RBC 4.80 Hgb 15.6 Hct 46.1 MCV 96.0 MCH 32.5 MCHC 33.8 RDW Std Deviation 54.1 H RDW Coeff of Neal 15.4 H Plt Count 202 MPV 9.8 Immature Gran % (Auto) 0.6 Neut % (Auto) 84.9 Lymph % (Auto) 8.4 Cowley % (Auto) 5.8 Eos % (Auto) 0.1 Baso % (Auto) 0.2 Neut # (Auto) 8.46 H Lymph # (Auto) 0.84 L Cowley # (Auto) 0.58 Eos # (Auto) 0.01 Baso # (Auto) 0.02 Immature Gran # (Auto) 0.06 PT 17.2 H INR 1.7 H VBG pH 7.23 L VBG pCO2 64 H VBG pO2 23 VBG HCO3 27 VBG O2 Saturation < 60.0 VBG Base Excess -2.1 Sodium 136 Potassium 6.8 H* Chloride 100 Carbon Dioxide 28 Anion Gap 8 BUN 29 H Creatinine 1.85 H Est Cr Clr Drug Dosing 51.8 eGFR 33.42 BUN/Creatinine Ratio 15.7 Glucose 98 POC Glucose 164 H Estimat Average Glucose Hemoglobin A1c Calcium 9.4 Phosphorus 5.6 H Magnesium 2.0 Total Bilirubin 3.6 H Direct Bilirubin AST 1655 H ALT 1389 H Alkaline Phosphatase 132 H Troponin I High Sens 326.5 H* B-Natriuretic Peptide 1110 H Total Protein 7.1 Albumin 4.2 Globulin 2.9 Albumin/Globulin Ratio 1.4 Procalcitonin TSH 5.082 H Free T4 1.48 Acetaminophen Hep Bs Antigen Hepatitis C Antibody 10/17/25 10/17/25 10/17/25 06:51 06:56 08:06 WBC 9.46 RBC 4.66 Hgb 14.4 Hct 43.7 MCV 93.8 MCH 30.9 MCHC 33.0 RDW Std Deviation 52.7 H RDW Coeff of Neal 15.7 H Plt Count 182 MPV 10.0 Immature Gran % (Auto) 0.4 Neut % (Auto) 82.3 Lymph % (Auto) 9.3 Cowley % (Auto) 7.9 Eos % (Auto) 0.0 Baso % (Auto) 0.1 Neut # (Auto) 7.78 H Lymph # (Auto) 0.88 L Cowley # (Auto) 0.75 H Eos # (Auto) 0.00 Baso # (Auto) 0.01 Immature Gran # (Auto) 0.04 PT INR VBG pH 7.32 L VBG pCO2 61 H VBG pO2 76 VBG HCO3 31 VBG O2 Saturation 95.1 VBG Base Excess 3.4 Sodium 140 Potassium 4.1 D Chloride 102 Carbon Dioxide 31 Anion Gap 7 BUN 29 H Creatinine 1.64 H Est Cr Clr Drug Dosing 58.4 eGFR 38.62 BUN/Creatinine Ratio 17.7 Glucose 105 H POC Glucose 94 Estimat Average Glucose 134 Hemoglobin A1c 6.3 H Calcium 9.0 Phosphorus Magnesium 2.0 Total Bilirubin 2.8 H Direct Bilirubin 1.0 H AST 2295 H ALT 1573 H Alkaline Phosphatase 107 H Troponin I High Sens 281.9 H* B-Natriuretic Peptide Total Protein 6.4 Albumin 3.9 Globulin Albumin/Globulin Ratio Procalcitonin 0.24 TSH Free T4 Acetaminophen < 3 L Hep Bs Antigen Hepatitis C Antibody 10/17/25 10/17/25 10/17/25 10:13 11:30 14:04 WBC RBC Hgb Hct MCV MCH MCHC RDW Std Deviation RDW Coeff of Neal Plt Count MPV Immature Gran % (Auto) Neut % (Auto) Lymph % (Auto) Cowley % (Auto) Eos % (Auto) Baso % (Auto) Neut # (Auto) Lymph # (Auto) Cowley # (Auto) Eos # (Auto) Baso # (Auto) Immature Gran # (Auto) PT INR VBG pH VBG pCO2 VBG pO2 VBG HCO3 VBG O2 Saturation VBG Base Excess Sodium Potassium Chloride Carbon Dioxide Anion Gap BUN Creatinine Est Cr Clr Drug Dosing eGFR BUN/Creatinine Ratio Glucose POC Glucose 80 Estimat Average Glucose Hemoglobin A1c Calcium Phosphorus Magnesium Total Bilirubin Direct Bilirubin AST ALT Alkaline Phosphatase Troponin I High Sens 215.2 H* D B-Natriuretic Peptide Total Protein Albumin Globulin Albumin/Globulin Ratio Procalcitonin TSH Free T4 Acetaminophen Hep Bs Antigen Negative Hepatitis C Antibody Negative 10/17/25 10/17/25 10/17/25 16:14 18:59 20:25 WBC RBC Hgb Hct MCV MCH MCHC RDW Std Deviation RDW Coeff of Neal Plt Count MPV Immature Gran % (Auto) Neut % (Auto) Lymph % (Auto) Cowley % (Auto) Eos % (Auto) Baso % (Auto) Neut # (Auto) Lymph # (Auto) Cowley # (Auto) Eos # (Auto) Baso # (Auto) Immature Gran # (Auto) PT INR VBG pH VBG pCO2 VBG pO2 VBG HCO3 VBG O2 Saturation VBG Base Excess Sodium Potassium Chloride Carbon Dioxide Anion Gap BUN Creatinine Est Cr Clr Drug Dosing eGFR BUN/Creatinine Ratio Glucose POC Glucose 107 H 113 H Estimat Average Glucose Hemoglobin A1c Calcium Phosphorus Magnesium Total Bilirubin Direct Bilirubin AST ALT Alkaline Phosphatase Troponin I High Sens 170.3 H* D B-Natriuretic Peptide Total Protein Albumin Globulin Albumin/Globulin Ratio Procalcitonin TSH Free T4 Acetaminophen Hep Bs Antigen Hepatitis C Antibody 10/18/25 10/18/25 05:20 07:01 WBC 6.38 RBC 4.48 Hgb 14.0 Hct 43.4 MCV 96.9 MCH 31.3 MCHC 32.3 RDW Std Deviation 54.9 H RDW Coeff of Neal 15.5 H Plt Count 169 MPV 10.4 Immature Gran % (Auto) Neut % (Auto) Lymph % (Auto) Cowley % (Auto) Eos % (Auto) Baso % (Auto) Neut # (Auto) Lymph # (Auto) Cowley # (Auto) Eos # (Auto) Baso # (Auto) Immature Gran # (Auto) PT INR VBG pH VBG pCO2 VBG pO2 VBG HCO3 VBG O2 Saturation VBG Base Excess Sodium 138 Potassium 3.9 Chloride 101 Carbon Dioxide 30 Anion Gap 7 BUN 39 H Creatinine 1.63 H Est Cr Clr Drug Dosing 58.3 eGFR 38.91 BUN/Creatinine Ratio 23.9 H Glucose 98 POC Glucose 99 Estimat Average Glucose Hemoglobin A1c Calcium 8.8 Phosphorus 4.3 D Magnesium 2.0 Total Bilirubin 1.8 H Direct Bilirubin AST 793 H ALT 1146 H Alkaline Phosphatase 96 Troponin I High Sens B-Natriuretic Peptide Total Protein 6.0 Albumin 3.5 Globulin 2.5 Albumin/Globulin Ratio 1.4 Procalcitonin TSH Free T4 Acetaminophen Hep Bs Antigen Hepatitis C Antibody PG Care Time/CCT Total # of Minutes Spent Total Time Spent with Patient: Total time spent is greater than 50% in coordination of care (as documented) at patient's floor/unit and/or counseling patient: Coding Level of Care Code 99592 SUB INP/OBS CARE 2/35MIN Diagnoses Abnormal LFTs R79.89
--- NOTE | 2025-10-18 09:46 | Electrocardiogram Report ---
Test Reason : Blood Pressure : */* mmHG Vent. Rate : 67 BPM Atrial Rate : * BPM P-R Int : * ms QRS Dur : 104 ms QT Int : 416 ms P-R-T Axes : * 66 -70 degrees QTcB Int : 439 ms Atrial fibrillation with premature ventricular or aberrantly conducted complexes Cannot rule out Inferior infarct , age undetermined Cannot rule out Anterior infarct (cited on or before 24-Aug-2025) Abnormal ECG When compared with ECG of 17-Oct-2025 02:30, Vent. rate has decreased by 33 bpm Minimal criteria for Inferior infarct are now Present Nonspecific T wave abnormality, worse in Anterolateral leads Confirmed by Anthony Sorenson ([id number]) on 10/18/2025 9:45:50 AM Referred By: REFERRED SELF Confirmed By: Anthony Sorenson
--- NOTE | 2025-10-18 10:07 | Hospitalist Progress Note ---
Date of Service October 18, 2025 Assessment & Plan (1) Acute on chronic HFrEF (heart failure with reduced ejection fraction): Plan: 45-year-old female with past medical history significant for chronic systolic CHF, COPD, obstructive sleep apnea, dyslipidemia, prediabetes, chronic atrial fibrillation, history of thrombosis of right internal jugular vein, history of non-ST elevated [place], history of CAD s/p angioplasty with stent, hypertension, pulm hypertension, history of right MCA CVA, mediastinal lymphadenopathy, obesity, CKD stage III, migraine, 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 Decline in EF thought to be from noncompliance with medications. Her symptoms improved with diuretics. As she was not able to afford Entresto and she was placed on losartan 12.5 mg daily. She was supposed to get LifeVest at home. As per aunt she did not had LifeVest yet. Also her CPAP was not working and supposed to get new CPAP machine but not delivered yet and she is not using CPAP for about a month now. Acute on chronic heart failure with reduced ejection fraction Labs on admission noted K of 6.8, Cr 1.85, Tbil 3.6, AST 1655, ALT 1389, Alk P 132, Trop 326->281, BNP 1110 CXR noted pulm edema/congestion Continue IV lasix Daily weights, I/O TTE 10/17/25 noted EF 20-25%, RVSF is borderline reduced, mod MR, dilated IVC with reduced collapsibility with sniff indicates elevated RAP of 15mmHg Cardiology on board Continue jardiance DENI on CKD stage III Hyperkalemia - resolved Baseline creatinine 1.4-1.5 Presented with creatinine 1.8 Cr is 1.63 today Nephro recs noted History of prediabetes Continue home Jardiance HbA1c 6.3 History of CAD status post stent Continue Plavix, statin and Eliquis and metoprolol Elevated LFTs On admission, Total Bilirubin 3.6, AST 1655, ALT 1389, alkaline phos 132 Mostly from congestive hepatopathy from CHF Abd USS noted hepatomegaly with steatosis, thickened gall bladder. 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 States her machine is old and needs replacement Reports she is supposed to follow up with sleep medicine for that Continue BIPAP/CPAP inpatient Hyperlipidemia On statin Anxiety On fluoxetine Counseled regarding smoking cessation DVT prophylaxis-On Eliquis Full code. I spent a total of 50 minutes coordinating, documenting and providing care for this patient excluding time spent in performance of separately billed services Admission and Anticipated Discharge Date Admission Date: October 17, 2025 Subjective Patient seen and examined Reports SOB is improving Denied chest pain Reports chronic cough, unchanged Physical Exam Constitutional: + well hydrated and + obese; no acute di stress Eyes: PERRL, conjunctivae normal, anicteric sclerae ENMT: external ear and nose normal, oropharynx normal Respiratory: Not in resp distress. Diminished breath sounds Cardiovascular: Rate/Rhythm: + irregularly irregular Gastrointestinal (Abdomen): normal bowel sounds, soft, nontender, no hepatosplenomegaly Musculoskeletal: +pedal edema Neurologic: PERRL, EOMI, accommodation nl, no face palsy, no dysarthria Psychiatric: A+Ox3, euthymic affect Results & Data Results & Data Vital Signs (Past 12 Hours) Vital Signs Temp Pulse Pulse Resp BP Pulse Ox O2 Del Method 10/18/25 07:03 36.3 C L 68 18 102/71 97 BiPAP 10/18/25 07:00 65 10/18/25 02:55 71 18 97 10/18/25 02:30 36.5 C 73 18 116/88 96 BiPAP 10/17/25 22:35 36.9 C 79 18 100/69 95 Nasal Cannula O2 Flow Rate FiO2 10/18/25 07:03 10/18/25 07:00 10/18/25 02:55 40 10/18/25 02:30 10/17/25 22:35 3 Laboratory Results Abnormal lab results 10/17/25 10/17/25 10/17/25 Range/Units 14:04 16:14 18:59 RDW Std Deviation (36.4-46.3) fL RDW Coeff of Neal (11.5-14.5) % BUN (6-23) mg/dl Creatinine (0.6-1.2) mg/dl BUN/Creatinine Ratio (10-20) POC Glucose 107 H (70-99) mg/dl Total Bilirubin (0.2-1.0) mg/dl AST (13-39) U/L ALT (7-52) U/L Troponin I High Sens 215.2 H* D 170.3 H* D (0-14) pg/ml 10/17/25 10/18/25 10/18/25 Range/Units 20:25 05:20 11:30 RDW Std Deviation 54.9 H (36.4-46.3) fL RDW Coeff of Neal 15.5 H (11.5-14.5) % BUN 39 H (6-23) mg/dl Creatinine 1.63 H (0.6-1.2) mg/dl BUN/Creatinine Ratio 23.9 H (10-20) POC Glucose 113 H 106 H (70-99) mg/dl Total Bilirubin 1.8 H (0.2-1.0) mg/dl AST 793 H (13-39) U/L ALT 1146 H (7-52) U/L Troponin I High Sens (0-14) pg/ml
--- NOTE | 2025-10-18 11:09 | Cardiology Progress Note ---
Date of Service October 18, 2025 Assessment & Plan (1) Acute on chronic HFrEF (heart failure with reduced ejection fraction): (2) Permanent atrial fibrillation: (3) Ischemic cardiomyopathy: (4) Abnormal LFTs: (5) LINSEY (obstructive sleep apnea): Plan Assessment: 45 year old female with complex coronary disease, HFrEF, Ischemic cardiomyopathy, permenet A-fib and medication non-compliance admitted for several days of progressively worsening shortness of breath. Cardiology consulted for further evaluation and recommendation. Plan 10/18/2025: Acute on chronic HFrEF Permanent atrial fibrillation Ischemic cardiomyopathy Abnormal LFTs -patient demonstrates evidence of volume overload on exam. She admits that she has run out of some of her medications which likely precipitated the event. -EKG with no acute ischemic changes. Troponin elevation likely demand ischemia due to hypervolemia and hypoxia. patient denies any chest pain -EKG low voltage, but shows Atrial fibrillation. given low voltage EKG and elevated troponin. Echocardiogram from prior admission dated 08/25/2025 shows severely reduced LVEF of 25-30% with severe global hypokinesis, severely dilated left atrium and moderate MR. Repeat echo yesterday, shows severely reduced LVEF 20-25%, Moderate MR. -Strict I and O with daily weights. -625ml fluid balance. -2kg weight deficit. -Close monitoring of renal function and serum electrolytes. -Goal serum K > 4.0 and serum Mag > 2.0. -Continue Furosemide 40mg IV BID -Currently off Bipap--based on witnessed LINSEY, patient needs to be wearing bipap during sleep. She reports that she is scheduled to see sleep medicine outpatient in Oct 2025. Needs to be restarted on CPAP therapy--review of telemetry shows multiple 2-3 second pauses, bradycardia and two separate runs of VT (7 beat and 9 beat) with witnessed apnea. -Continue Eliquis 5mg PO BID, Jardiance 10mg QD, Atorvastatin 80mg QD, Plavix 75mg QD -Blood pressures stable. -Reassess fluid status in the AM and plan for transition to PO diuretics when appropriate. Stressed the importance of medication compliance. -Abnormal LFTs-- trending down--further workup as indicated by primary team Case has been discussed with Dr. Fiore. Further recommendations regarding plan of care as per her assessment. I spent a total of 30 minutes on the date of service in preparation, delivery, documentation of the care provided to the patient excluding any time spent in the performance of separately billed services. JOSUE Garcia [facility] Admission and Anticipated Discharge Date Admission Date: October 17, 2025 Supervising Physician Co-Signing Physician Notes I have reviewed the advanced practitioner's documentation on the date of service referenced in note, and I agree with, and take responsibility for the plan of care. I spent a total of [15] minutes coordinating, documenting, and providing care for this patient excluding time spent in the performance of separately billed services or time spent by another provider. 45-year-old female with history of coronary artery disease PCI to mid LAD and second diagonal branch in 2005, cardiac [place] [facility] [place] 80% mid right coronary artery stenosis 80% right posterolateral branch 90% distal right posterolateral branch, 70% LAD stenosis 70% mid LAD stenosis with in-stent stenosis. Underwent PCI of the proximal to mid LAD and proximal to mid RCA with drug-eluting stents. Ischemic cardiomyopathy severely reduced ejection fraction of 20% on heart failure medications atrial fibrillation, history of stroke in 2018, hypertension, obesity sleep apnea presented with worsening shortness of breath and heart failure Has not been taking her medications presents with volume significant volume overload requiring BiPAP Currently is on nasal oxygen as diuresing well still has significant volume overload Episodes of bradycardia during sleep noted on the telemetry consistent with sleep apnea Heart failure meds restarted ejection fraction is still low Continue with diuresis and close outpatient follow-up for uptitration of heart failure meds EP referral as outpatient for evaluation of device implant Subjective 10/18/2025: Patient seen and examined in follow up today. Feeling fair. Reports continued improvement in her breathing, No chest pain, pressure or palpitations. Upon entering room, patient was asleep and exhibiting sleep apnea symptoms. Telemetry was visible in room showing very brief bradycardia in the 30's for 1-2 seconds. This quickly rebounded with her startling awake. Labs, vitals, diagnostics, telemetry and documentation reviewed. Telemetry reviewed showing A-fib with multifocal PVC's, multiple 2-3 second pauses with sleep, and 2 runs of non-sustained VT 7 beat and 9 beat during sleep. Review of Systems Review of Systems: All systems reviewed & are unremarkable except as noted in HPI & below Physical Exam Constitutional: well developed, well nourished and + overweight; no acute distress Neck: normal visual inspection and trachea midline Respiratory: normal respiratory effort and + cough; no respiratory distress and no labored breathing Auscultation: + diminished lung sounds (bilateral bases ); no crackles, no rales, no rhonchi and no wheezes Cardiovascular: Rate/Rhythm: + irregularly irregular Heart Sounds: normal S1 and normal S2; no murmur Vessels: dorsalis pedis pulses present; no JVD Extremities: + edema (trace to +1 BLE) Skin: no rashes, warm and dry Psychiatric: A+Ox3, euthymic affect Results & Data Vital Signs (Past 12 Hours) Vital Signs Temp Pulse Pulse Resp BP Pulse Ox O2 Del Method 10/18/25 10:37 36.5 C 70 19 104/72 97 BiPAP 10/18/25 07:03 36.3 C L 68 18 102/71 97 BiPAP 10/18/25 07:00 65 10/18/25 02:55 71 18 97 10/18/25 02:30 36.5 C 73 18 116/88 96 BiPAP FiO2 10/18/25 10:37 10/18/25 07:03 10/18/25 07:00 10/18/25 02:55 40 10/18/25 02:30 Laboratory Results Cardiac Enzymes 10/17/25 10/17/25 10/18/25 Range/Units 14:04 18:59 05:20 AST 793 H (13-39) U/L Troponin I High Sens 215.2 H* D 170.3 H* D (0-14) pg/ml CBC 10/18/25 Range/Units 05:20 WBC 6.38 (4.8-10.8) K/ul RBC 4.48 (4.20-5.40) M/uL Hgb 14.0 (12.0-16.0) g/dL Hct 43.4 (37.0-47.0) % Plt Count 169 (130-400) K/uL Comprehensive Metabolic Panel 10/18/25 Range/Units 05:20 Sodium 138 (136-145) mmol/L Potassium 3.9 (3.5-5.1) mmol/L Chloride 101 (98-107) mmol/L Carbon Dioxide 30 (21-32) mmol/L BUN 39 H (6-23) mg/dl Creatinine 1.63 H (0.6-1.2) mg/dl Glucose 98 (70-99(Fasting)) mg/dl Calcium 8.8 (8.6-10.3) mg/dl AST 793 H (13-39) U/L ALT 1146 H (7-52) U/L Alkaline Phosphatase 96 (34-104) U/L Total Protein 6.0 (6.0-8.3) gm/dl Albumin 3.5 (3.4-5.0) gm/dl Intake and Output 10/17/25 10/18/25 10/18/25 22:59 06:59 14:59 Output Total 625 / 625 Balance -625 / -625 Output: Urine Amount (Catheter) 625 / 625 External 625 / 625 Other: # Unmeasured Voids 2 3 Weight 127.5 kg Weight Measurement Method Built in [facility] PG Care Time/CCT Total # of Minutes Spent Total Time Spent with Patient: Total time spent is greater than 50% in coordination of care (as documented) at patient's floor/unit and/or counseling patient: Coding Level of Care Code 58463 SUB INP/OBS CARE 3/50MIN Diagnoses Acute on chronic HFrEF (heart failure with reduced ejection fraction) I50.23 Permanent atrial fibrillation I48.21 Ischemic cardiomyopathy I25.5 Abnormal LFTs R79.89 LINSEY (obstructive sleep apnea) G47.33 Time Spent (min) 30
--- NOTE | 2025-10-18 15:30 | Nephrology Progress Note ---
Date of Service October 18, 2025 Assessment & Plan Admission and Anticipated Discharge Date Admission Date: October 17, 2025 Subjective Assessment & Plan (1) Hyperkalemia: medications induced--she is on Aldactone, Kcl supplement and also ARB. She cant be on this many drugs. Stop kcl and Stop Aldactone for now. Maybe able to restart Aldactone later on though She needs a higher baseline loop diuretics to manage her fluid and k status. Now normal after medical therapy. Continue Lasix same dose (2) Abnormal LFTs: Liiely related to hepatic congestion from CHF (3) Acute on chronic HFrEF (heart failure with reduced ejection fraction): Most likely her primary issue. Needs a much higher dose diuretics. will do lasix 40 iv q8hr. hepatic congestion from CHF means grossly inadequate diuresis. LFT trending better for now No Kcl and no Aldactone. also no ARB. Daily labs. likely needs a more advanced CHF therapy including heart transplant--defer to cards. Also likely needs a higher baseline loop diuretics to manage fluid and k status. S--no new issues. needing CPAP. Feels better. ROS--see HPI./ 12 Systems reviewed and negative. Physical Exam Physical Exam: General- Not in distress. Bipap. Neck- supple, +ve JVD. Lungs- mild bibasilar crackles Heart- irrregular, + Sys murmur Abdomen- soft, nontender, no distension Extremities- b/l 1+ edema present Neuro- alert, oriented moves extremities Results & Data Vital Signs (Past 12 Hours) Vital Signs Temp Pulse Pulse Resp BP Pulse Ox O2 Del Method 10/18/25 15:21 36.5 C 75 18 113/79 93 CPAP 10/18/25 14:00 78 10/18/25 11:55 BiPAP 10/18/25 10:37 36.5 C 70 19 104/72 97 BiPAP 10/18/25 07:03 36.3 C L 68 18 102/71 97 BiPAP 10/18/25 07:00 65
[2025-10-18 23:56] LABS: Hepatitis A Antibody IgM NON-REACTIVE (NON-REACTIVE); Hepatitis B Core Antibody IgM NON-REACTIVE (NON-REACTIVE)
[2025-10-19 06:09] LABS: Hematocrit (blood only) 40.5 % (37.0-47.0); Hemoglobin 13.3 g/dL (12.0-16.0); Mean Corpuscular Hemoglobin 31.5 pg (25.0-34.0); Mean Corpuscular Volume 96.0 fL (80.0-100.0); Platelet Count 202 K/uL (130-400); RDW Standard Deviation 53.4 fL (36.4-46.3); Red Blood Count 4.22 M/uL (4.20-5.40); White Blood Count 6.69 K/ul (4.8-10.8)
[2025-10-19 06:43] LABS: Albumin Globulin Ratio 1.4 (0.9-2); Albumin Level 3.6 gm/dl (3.4-5.0); Alkaline Phosphatase 82 U/L (34-104); Anion Gap 7 (3-11); Bilirubin,Total 1.2 mg/dl (0.2-1.0); Blood Urea Nitrogen 37 mg/dl (6-23); Calcium 8.7 mg/dl (8.6-10.3); Carbon Dioxide 35 mmol/L (21-32); Chloride 99 mmol/L (98-107); Creatinine Clr Calc Pharmacy 56.6 ml/min; Globulin 2.5 gm/dl (2.5-4.0); Glucose 127 mg/dl (70-99(Fasting)); Magnesium 2.0 mg/dl (1.7-2.4); Sodium 141 mmol/L (136-145); Total Protein 6.1 gm/dl (6.0-8.3)
[2025-10-19 06:58] LABS: Alanine Aminotransferase 794 U/L (7-52)
[2025-10-19 08:26] LABS: Potassium 3.5 mmol/L (3.5-5.1)
--- NOTE | 2025-10-19 10:20 | Hospitalist Progress Note ---
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 Decline in EF thought to be from noncompliance with medications. Her symptoms improved with diuretics. As she was not able to afford Entresto and she was placed on losartan 12.5 mg daily. She was supposed to get LifeVest at home. As per aunt she did not had LifeVest yet. Also her CPAP was not working and supposed to get new CPAP machine but not delivered yet and she is not using CPAP for about a month now. Acute on chronic heart failure with reduced ejection fraction Labs on admission noted K of 6.8, Cr 1.85, Tbil 3.6, AST 1655, ALT 1389, Alk P 132, Trop 326->281, BNP 1110 CXR noted pulm edema/congestion TTE 10/17/25 noted EF 20-25%, RVSF is borderline reduced, mod MR, dilated IVC with reduced collapsibility with sniff indicates elevated RAP of 15mmHg On IV lasix. May be changed to po by tomorrow per Cardiology Daily weights, I/O Continue jardiance DENI on CKD stage III Hyperkalemia - resolved Baseline creatinine 1.4-1.5 Presented with creatinine 1.8 Cr is 1.67 today Nephro recs noted Monitor electrolytes and replete as appropriate History of prediabetes Continue home Jardiance HbA1c 6.3 History of CAD status post stent Continue Plavix, statin and Eliquis and metoprolol Elevated LFTs On admission, Total Bilirubin 3.6, AST 1655, ALT 1389, alkaline phos 132 Mostly from congestive hepatopathy from CHF Abd USS noted hepatomegaly with steatosis, thickened gall bladder. Possible pericholecystic fluid LFT improving with management of CHF. Tbil down to 1.2, AST 299, ALT 794 and ALk Phos 82 today History of A-fib On Eliquis and metoprolol [employer] digoxin on hold Obstructive sleep apnea Not compliant with her CPAP. Stated her machine is old and needs replacement Reports she is supposed to follow up with sleep medicine for that Continue BIPAP/CPAP inpatient Hyperlipidemia On statin Anxiety On fluoxetine Counseled regarding smoking cessation Counseled patient regarding med adherence DVT prophylaxis-On Eliquis Full code. I spent a total of 50 minutes coordinating, documenting and providing care for t his patient excluding time spent in performance of separately billed services Admission and Anticipated Discharge Date Admission Date: October 17, 2025 Subjective Patient seen and examined Reports SOB continues to improve Denied any chest pain, cough, nausea, vomiting No new complaints Reports she has been running out of her meds due to cost issues/insurance issues Physical Exam Constitutional: + well hydrated and + obese; no acute di stress Eyes: PERRL, conjunctivae normal, anicteric sclerae ENMT: external ear and nose normal, oropharynx normal Respiratory: Not in resp distress, diminished breath sounds Cardiovascular: Rate/Rhythm: + irregularly irregular Gastrointestinal (Abdomen): normal bowel sounds, soft, nontender, no hepatosplenomegaly Neurologic: PERRL, EOMI, accommodation nl, no face palsy, no dysarthria Psychiatric: A+Ox3, euthymic affect Results & Data Results & Data Vital Signs (Past 12 Hours) Vital Signs Temp Pulse Resp BP Pulse Ox O2 Del Method O2 Flow Rate 10/19/25 07:05 36.5 C 71 20 98/68 L 91 Nasal Cannula 3 10/19/25 02:40 37.2 C 67 20 115/68 95 Nasal Cannula 10/18/25 22:30 37.2 C 80 19 103/64 94 CPAP Laboratory Results Abnormal lab results 10/18/25 10/18/25 10/19/25 Range/Units 16:05 20:39 05:27 RDW Std Deviation 53.4 H (36.4-46.3) fL RDW Coeff of Neal 15.3 H (11.5-14.5) % Carbon Dioxide 35 H (21-32) mmol/L BUN 37 H (6-23) mg/dl Creatinine 1.67 H (0.6-1.2) mg/dl BUN/Creatinine Ratio 22.2 H (10-20) Glucose 127 H (70-99(Fasting)) mg/dl POC Glucose 110 H 119 H (70-99) mg/dl Total Bilirubin 1.2 H (0.2-1.0) mg/dl AST (13-39) U/L ALT 794 H (7-52) U/L 10/19/25 10/19/25 Range/Units 07:02 07:49 RDW Std Deviation (36.4-46.3) fL RDW Coeff of Neal (11.5-14.5) % Carbon Dioxide (21-32) mmol/L BUN (6-23) mg/dl Creatinine (0.6-1.2) mg/dl BUN/Creatinine Ratio (10-20) Glucose (70-99(Fasting)) mg/dl POC Glucose 104 H (70-99) mg/dl Total Bilirubin (0.2-1.0) mg/dl AST 299 H (13-39) U/L ALT (7-52) U/L
--- NOTE | 2025-10-19 10:21 | Gastroenterology Progress Note ---
Date of Service October 19, 2025 Assessment & Plan (1) Ischemic hepatitis: Plan: LFTs improving. Continue to monitor LFTs. Anticipate these will improve as overall clinical picture improves. Admission and Anticipated Discharge Date Admission Date: October 17, 2025 Supervising Physician Co-Signing Physician Notes I saw and examined this patient with our nurse practitioner and agree with her assessment and plan. Clinically improved LFTs normalizing consistent with resolving ischemic hepatitis related to her acute cardiopulmonary failure. Continue to monitor her liver studies. Serologies still pending. Subjective Patient is a 45 yo female with likely ischemic hepatitis. AST 299 improving. ALT 794 also improved. Alk phos normal. T Bili 1.2. Hep A, B, C negative. She notes that she is feeling better. No acute complaints at this time. Review of Systems Gastrointestinal: no abdominal pain Physical Exam Gastrointestinal (Abdomen): normal bowel sounds, soft, nontender, no hepatosplenomegaly Results & Data Results & Data Vital Signs (Past 12 Hours) Vital Signs Temp Pulse Resp BP Pulse Ox O2 Del Method O2 Flow Rate 10/19/25 07:05 36.5 C 71 20 98/68 L 91 Nasal Cannula 3 10/19/25 02:40 37.2 C 67 20 115/68 95 Nasal Cannula 10/18/25 22:30 37.2 C 80 19 103/64 94 CPAP PG Care Time/CCT Total # of Minutes Spent Total Time Spent with Patient: Total time spent is greater than 50% in coordination of care (as documented) at patient's floor/unit and/or counseling patient: Coding Level of Care Code 32283 SUB INP/OBS CARE 2/35MIN Diagnoses Ischemic hepatitis K72.00
[2025-10-19] MEDS: POTASSIUM CHLORIDE CRTAB 20 MEQ TABCR PO STA (12:17)
--- NOTE | 2025-10-19 13:05 | Cardiology Progress Note ---
Date of Service October 19, 2025 Assessment & Plan (1) Acute on chronic HFrEF (heart failure with reduced ejection fraction): (2) Permanent atrial fibrillation: (3) Ischemic cardiomyopathy: (4) Abnormal LFTs: (5) LINSEY (obstructive sleep apnea): Plan Assessment: 45 year old female with complex coronary disease, HFrEF, Ischemic cardiomyopathy, permanent A-fib, CAD S/P PCI, PHTN, and medication non- compliance admitted for several days of progressively worsening shortness of breath. Cardiology consulted for further evaluation and recommendation. Acute on chronic HFrEF Permanent atrial fibrillation Ischemic cardiomyopathy HTN Abnormal LFTs LINSEY recommendations: CPAP Continue Eliquis 5mg PO BID, Jardiance 10mg QD, Atorvastatin 80mg QD, Plavix 75mg QD correct and f/u electrolytes f/u renal function change IV to PO diuretics start Torsemide 10mg po daily continue anticoagulation GDMT for HFrEF limited due to renal insufficiency and low BP adjust rate control meds keeping HR between 60 to 100 BPM and systolic BP between 100-140 mmHg adjust anti-HTN meds keeping systolic BP between 100-140 mmHg avoid hypovolemia keep patient euvolemic 1.5 L / 24 hr fluid restriction strict I&Os salt restriction consider starting Entresto as OP once renal function stabilizes and BP allows EP referral as outpatient for evaluation of device implant Admission and Anticipated Discharge Date Admission Date: October 17, 2025 Subjective Patient on exam is lying in bed with one pillow in NAD; no c/o cp, sob, palpitations, dizziness, LOC, cough, fever, nausea, vomiting, abdominal pain, urinary or bowel problem problems, melena, hematemesis, hemoptysis, hematochezia, leg swelling; states that leg swelling has resolved Review of Systems Review of Systems: as per hpi Physical Exam 2 Constitutional: + overweight; no acute distress Respiratory: no respiratory distress and no labored breathing Auscultation: no rales and no wheezes Cardiovascular: irreg irreg Gastrointestinal (Abdomen): soft, obese, NT Psychiatric: A+Ox3, euthymic affect Results & Data Vital Signs (Past 12 Hours) Vital Signs Vital Signs Temp 36.4 C L 10/19/25 11:26 Pulse 78 10/19/25 11:26 Resp 23 10/19/25 11:26 BP 106/72 10/19/25 11:26 Pulse Ox 96 10/19/25 11:26 O2 Del Method Nasal Cannula 10/19/25 11:26 O2 Flow Rate 3 10/19/25 11:26 FiO2 40 10/18/25 22:15 Intake & Output 10/18/25 10/19/25 10/19/25 18:59 06:59 18:59 Intake Total 360 / 610 250 / 610 Output Total 800 / 800 Balance -440 / -190 250 / -190 Weight 126.2 kg Intake: Oral 360 / 610 250 / 610 Output: Urine Amount (Catheter) 800 / 800 External 800 / 800 Other: # Unmeasured Voids 1 Weight Measurement Method Built in [facility] Tem Pulse Resp BP Pulse Ox O2 Del Method O2 Flow Rate 10/19/25 11:26 36.4 C L 78 23 106/72 96 Nasal Cannula 3 10/19/25 10:35 Nasal Cannula 3 10/19/25 07:05 36.5 C 71 20 98/68 L 91 Nasal Cannula 3 10/19/25 02:40 37.2 C 67 20 115/68 95 Nasal Cannula Laboratory Results Laboratory Results WBC 6.69 K/ul (4.8-10.8) 10/19/25 05:27 RBC 4.22 M/uL (4.20-5.40) 10/19/25 05:27 Hgb 13.3 g/dL (12.0-16.0) 10/19/25 05:27 Hct 40.5 % (37.0-47.0) 10/19/25 05:27 MCV 96.0 fL (80.0-100.0) 10/19/25 05:27 MCH 31.5 pg (25.0-34.0) 10/19/25 05:27 MCHC 32.8 g/dL (32.0-36.0) 10/19/25 05:27 RDW Std Deviation 53.4 fL (36.4-46.3) H 10/19/25 05:27 RDW Coeff of Neal 15.3 % (11.5-14.5) H 10/19/25 05:27 Plt Count 202 K/uL (130-400) 10/19/25 05:27 MPV 10.0 fL (9.4-12.4) 10/19/25 05:27 Immature Gran % (Auto) 0.4 % 10/17/25 06:56 Neut % (Auto) 82.3 % 10/17/25 06:56 Lymph % (Auto) 9.3 % 10/17/25 06:56 [place] % (Auto) 7.9 % 10/17/25 06:56 Eos % (Auto) 0.0 % 10/17/25 06:56 Baso % (Auto) 0.1 % 10/17/25 06:56 Neut # (Auto) 7.78 K/uL (1.40-6.50) H 10/17/25 06:56 Lymph # (Auto) 0.88 K/uL (1.20-3.40) L 10/17/25 06:56 [place] # (Auto) 0.75 K/uL (0.11-0.59) H 10/17/25 06:56 Eos # (Auto) 0.00 K/uL (0.00-0.50) 10/17/25 06:56 Baso # (Auto) 0.01 K/uL (0.00-0.20) 10/17/25 06:56 Immature Gran # (Auto) 0.04 K/uL (0.01-0.20) 10/17/25 06:56 PT 17.2 Seconds (9.0-12.0) H 10/17/25 02:31 INR 1.7 (0.9-1.1) H 10/17/25 02:31 VBG pH 7.32 (7.36-7.41) L 10/17/25 06:56 VBG pCO2 61 mmHg (38-50) H 10/17/25 06:56 VBG pO2 76 mmHg 10/17/25 06:56 VBG HCO3 31 mmol/L 10/17/25 06:56 VBG O2 Saturation 95.1 % 10/17/25 06:56 VBG Base Excess 3.4 mEq/L 10/17/25 06:56 Sodium 141 mmol/L (136-145) 10/19/25 05:27 Potassium 3.5 mmol/L (3.5-5.1) 10/19/25 07:49 Chloride 99 mmol/L (98-107) 10/19/25 05:27 Carbon Dioxide 35 mmol/L (21-32) H 10/19/25 05:27 Anion Gap 7 (3-11) 10/19/25 05:27 BUN 37 mg/dl (6-23) H 10/19/25 05:27 Creatinine 1.67 mg/dl (0.6-1.2) H 10/19/25 05:27 Est Cr Clr Drug Dosing 56.6 ml/min 10/19/25 05:27 eGFR 37.79 10/19/25 05:27 BUN/Creatinine Ratio 22.2 (10-20) H 10/19/25 05:27 Glucose 127 mg/dl (70-99(Fasting)) H 10/19/25 05:27 POC Glucose 98 mg/dl (70-99) 10/19/25 11:23 Estimat Average Glucose 134 mg/dl 10/17/25 06:51 Hemoglobin A1c 6.3 % (4.5-5.6) H 10/17/25 06:51 Calcium 8.7 mg/dl (8.6-10.3) 10/19/25 05:27 Phosphorus 3.4 mg/dl (2.5-4.9) 10/19/25 05:27 Magnesium 2.0 mg/dl (1.7-2.4) 10/19/25 05:27 Total Bilirubin 1.2 mg/dl (0.2-1.0) H 10/19/25 05:27 Direct Bilirubin 1.0 mg/dl (0-0.2) H 10/17/25 06:51 AST 299 U/L (13-39) H 10/19/25 07:49 ALT 794 U/L (7-52) H 10/19/25 05:27 Alkaline Phosphatase 82 U/L (34-104) 10/19/25 05:27 Troponin I High Sens 170.3 pg/ml (0-14) H* D 10/17/25 18:59 B-Natriuretic Peptide 1110 pg/ml (0-100) H 10/17/25 02:31 Total Protein 6.1 gm/dl (6.0-8.3) 10/19/25 05:27 Albumin 3.6 gm/dl (3.4-5.0) 10/19/25 05:27 Globulin 2.5 gm/dl (2.5-4.0) 10/19/25 05:27 Albumin/Globulin Ratio 1.4 (0.9-2) 10/19/25 05:27 Procalcitonin 0.24 ng/ml (0-0.5) 10/17/25 06:51 TSH 5.082 uIu/ml (0.300-4.500) H 10/17/25 02:31 Free T4 1.48 ng/dl (0.61-1.60) 10/17/25 02:31 Acetaminophen < 3 ug/ml (10-30) L 10/17/25 06:51 Hepatitis A IgM Ab NON-REACTIVE (NON-REACTIVE) 10/17/25 10:13 Hep Bs Antigen Negative (Negative) 10/17/25 10:13 Hep B Core IgM Ab NON-REACTIVE (NON-REACTIVE) 10/17/25 10:13 Hepatitis C Antibody Negative (Negative) 10/17/25 10:13 Impressions Chest X-Ray 10/17/25 02:31 EXAM: XR chest 1V portable CLINICAL HISTORY: Shortness of breath, hypoxia. TECHNIQUE: An X-ray image of the chest is obtained in AP projection. COMPARISON: 08/24/2025 FINDINGS: Pulmonary Parenchyma: Bilateral perihilar pulmonary congestion, with bilateral streaky linear pattern and bilateral lower zone haziness suggestive of parenchymal edema. No pulmonary nodules are identified. Bilateral CP angles blunting, could be due to pleural effusion or pleural thickening. Heart and Mediastinum: Enlarged heart shadow. No mediastinal widening or masses. No hilar or mediastinal lymphadenopathy. Bony Thorax: Bony thorax appears intact without fractures or deformities. Soft Tissues: Soft tissues overlying the chest wall are unremarkable. IMPRESSION: No apparent interval changes. Bilateral signs of pulmonary edema/pulmonary congestion. Cardiomegaly. To be correlated clinically. Electronically signed by Harshad Hagan 10-17-2025 03:41 AM Abdomen Ultrasound 10/17/25 03:57 EXAM: US abdomen limited CLINICAL HISTORY: Abn LFT's. TECHNIQUE: Ultrasound examination of the RUQ was performed. Scanning was performed with the patient in the supine position. The following structures were specifically evaluated: COMPARISON: None available. FINDINGS: Very limited exam due to the patient's body habitus and breathing. Liver: Liver size: 19.8 cm. Liver appears enlarged in size with increased echogenicity, due to fatty liver. Possible Waldemar's lobe No evidence of focal lesions, cysts, or masses. Hepatic vasculature appears normal. MPV: Patent. Gallbladder: Thickened gallbladder wall measuring 1.0cm without hyperemia. Possible pericholecystic fluid visualized. Trace free fluid seen within the RUQ. No obvious stones were visualized. Biliary Tree: CBD: Unable to be clearly visualized due to the patient's body habitus. CBD at janet hepatis measures 0.35 cm. No evidence of choledocholithiasis or biliary obstruction. Unremarkable pancreas. Right Kidney: Right kidney size: 10.2 cm. The right kidney appears normal in size with preserved corticomedullary differentiation. No evidence of hydronephrosis, renal cysts, or masses. IMPRESSION: Ultrasound examination of the Right Upper Quadrant (RUQ): 1. Hepatomegaly with steatosis. 2. Thickened gallbladder wall measuring 1.0 cm without hyperemia. Possible pericholecystic fluid visualized. Trace free fluid seen within the RUQ. No obvious stones were visualized. The findings could represent gall bladder wall edema secondary to ascites, rather than acute cholecystitis. Please correlate with clinical and lab data. RECOMMENDATIONS: Clinical correlation with symptoms and further evaluation as indicated. Electronically signed by Harshad Hagan 10-17-2025 06:37 AM Diagnostic Findings Cardiac Enzymes 10/19/25 10/19/25 Range/Units 05:27 07:49 AST TNP 299 H CBC 10/19/25 Range/Units 05:27 WBC 6.69 (4.8-10.8) K/ul RBC 4.22 (4.20-5.40) M/uL Hgb 13.3 (12.0-16.0) g/dL Hct 40.5 (37.0-47.0) % Plt Count 202 (130-400) K/uL Comprehensive Metabolic Panel 10/19/25 10/19/25 Range/Units 05:27 07:49 Sodium 141 (136-145) mmol/L Potassium TNP 3.5 Chloride 99 (98-107) mmol/L Carbon Dioxide 35 H (21-32) mmol/L BUN 37 H (6-23) mg/dl Creatinine 1.67 H (0.6-1.2) mg/dl Glucose 127 H (70-99(Fasting)) mg/dl Calcium 8.7 (8.6-10.3) mg/dl AST TNP 299 H ALT 794 H (7-52) U/L Alkaline Phosphatase 82 (34-104) U/L Total Protein 6.1 (6.0-8.3) gm/dl Albumin 3.6 (3.4-5.0) gm/dl Intake and Output 10/18/25 10/19/25 10/19/25 22:59 06:59 14:59 Intake Total 250 / 610 Balance 250 / -190 Intake: Oral 250 / 610 Other: # Unmeasured Voids 1 Weight 126.2 kg Weight Measurement Method [facility] Medications Administered Home Medications Medication Instructions Recorded Confirmed Last Taken apixaban 5 mg tablet (Eliquis) 5 mg PO BID 10/17/25 10/17/25 Unknown atorvastatin 80 mg tablet 80 mg PO DAILY 10/17/25 10/17/25 Unknown clopidogrel 75 mg tablet 75 mg PO DAILY 10/17/25 10/17/25 Unknown digoxin 250 mcg (0.25 mg) tablet 250 mcg PO DAILY 10/17/25 10/17/25 Unknown empagliflozin 10 mg tablet 10 mg PO DAILY 10/17/25 10/17/25 Unknown (Jardiance) fluoxetine 20 mg capsule 20 mg PO DAILY 10/17/25 10/17/25 Unknown furosemide 40 mg tablet 40 mg PO BID 10/17/25 10/17/25 Unknown losartan 25 mg tablet 12.5 mg PO DAILY 10/17/25 10/17/25 Unknown metoprolol succinate 100 mg 100 mg PO DAILY 10/17/25 10/17/25 Unknown tablet,extended release 24 hr potassium chloride 10 mEq 10 meq PO DAILY 10/17/25 10/17/25 Unknown capsule,extended release spironolactone 25 mg tablet 12.5 mg PO DAILY 10/17/25 10/17/25 Unknown Active Medications Generic Name Dose Route Start Last Admin Trade Name Hardeepq PRN Reason Stop Dose Admin Apixaban 5 mg 10/17/25 09:00 10/19/25 07:54 Apixaban 5 Mg Tablet PO 11/16/25 08:59 5 mg BID ROLAND Administration Atorvastatin Calcium 80 mg 10/17/25 09:00 10/19/25 07:54 Atorvastatin 40 Mg Tab PO 11/16/25 08:59 80 mg DAILY ROLAND Administration Clopidogrel Bisulfate 75 mg 10/17/25 09:00 10/19/25 07:54 Clopidogrel Bisulfate 75 Mg Tab PO 11/16/25 08:59 75 mg DAILY ROLAND Administration Empagliflozin 10 mg 10/17/25 09:00 10/19/25 07:54 Empagliflozin 10 Mg Tab PO 11/16/25 08:59 10 mg DAILY ROLAND Administration Fluoxetine HCl 20 mg 10/17/25 09:00 10/19/25 07:54 Fluoxetine Hcl 20 Mg Cap PO 11/16/25 08:59 20 mg DAILY ROLAND Administration Furosemide 40 mg 10/17/25 09:00 10/19/25 07:55 Furosemide 40 Mg/4 Ml Vial IV 11/16/25 08:59 40 mg BID ROLAND Administration Insulin Aspart 0 units 10/17/25 11:30 10/19/25 12:16 Insulin Aspart Per Unit Charge SC 11/16/25 11:29 Not Given ACHS ROLAND Metoprolol Succinate 100 mg 10/17/25 09:00 10/19/25 07:21 Metoprolol Succ 50mg Ext Rel Tab PO 11/16/25 08:59 Not Given DAILY ROLAND PG Care Time/CCT Total # of Minutes Spent Total Time Spent with Patient: Total time spent is greater than 50% in coordination of care (as documented) at patient's floor/unit and/or counseling patient: Coding Level of Care Code 15728 SUB INP/OBS CARE 3/50MIN Diagnoses Acute on chronic HFrEF (heart failure with reduced ejection fraction) I50.23 Permanent atrial fibrillation I48.21 Ischemic cardiomyopathy I25.5 Abnormal LFTs R79.89 LINSEY (obstructive sleep apnea) G47.33
[2025-10-20] MEDS: TORSEMIDE 10 MG TAB PO SCH (08:01)
[2025-10-20 09:34] LABS: Anion Gap 6.0 (3-11); Blood Urea Nitrogen 30.0 mg/dl (6-23); Calcium 9.2 mg/dl (8.6-10.3); Carbon Dioxide 34.0 mmol/L (21-32); Chloride 100.0 mmol/L (98-107); Creatinine Clr Calc Pharmacy 74.3 ml/min; Glucose 158.0 mg/dl (70-99(Fasting)); Magnesium 2.1 mg/dl (1.7-2.4); Potassium 3.8 mmol/L (3.5-5.1); Sodium 140.0 mmol/L (136-145)
--- NOTE | 2025-10-20 09:46 | Gastroenterology Progress Note ---
Date of Service October 20, 2025 Assessment & Plan (1) Ischemic hepatitis: Plan: -Await LFTs from today -If continuing to downtrend, will plan to sign off. Admission and Anticipated Discharge Date Admission Date: October 17, 2025 Supervising Physician Co-Signing Physician Notes I saw and examined this patient with our nurse practitioner and agree with her assessment and plan. Liver enzymes continue to improve. Hep serologies were negative for acute hepatitis. Clinical picture consistent with resolving ischemic hepatitis. Call if any further issues. Subjective Patient is a 45 yo female with ischemic hepatitis. She is resting comfortably in bed at the time of my visit. LFTs from today still pending. Review of Systems Review of Systems: patient sleeping; did not awaken. Will eval fully on rounds with Dr. Wylie Physical Exam Constitutional: no acute distress Respiratory: normal respiratory effort Results & Data Results & Data Vital Signs (Past 12 Hours) Vital Signs Temp Pulse Pulse Resp BP Pulse Ox O2 Del Method 10/20/25 07:03 36.3 C L 75 19 107/76 95 Nasal Cannula 10/20/25 03:38 70 20 97 10/20/25 02:26 36.4 C L 79 14 125/91 96 BiPAP 10/19/25 22:33 36.3 C L 67 20 87/68 L 94 BiPAP 10/19/25 22:21 76 20 97 10/19/25 21:57 79 O2 Flow Rate FiO2 10/20/25 07:03 3 10/20/25 03:38 40 10/20/25 02:26 10/19/25 22:33 10/19/25 22:21 40 10/19/25 21:57 Laboratory Results Laboratory Results - last 48 hr 10/17/25 10/18/25 10/19/25 10:13 20:39 05:27 WBC 6.69 RBC 4.22 Hgb 13.3 Hct 40.5 MCV 96.0 MCH 31.5 MCHC 32.8 RDW Std Deviation 53.4 H RDW Coeff of Neal 15.3 H Plt Count 202 MPV 10.0 Sodium 141 Potassium TNP Chloride 99 Carbon Dioxide 35 H Anion Gap 7 BUN 37 H Creatinine 1.67 H Est Cr Clr Drug Dosing 56.6 eGFR 37.79 BUN/Creatinine Ratio 22.2 H Glucose 127 H POC Glucose 119 H Calcium 8.7 Phosphorus 3.4 Magnesium 2.0 Total Bilirubin 1.2 H Direct Bilirubin AST TNP ALT 794 H Alkaline Phosphatase 82 Total Protein 6.1 Albumin 3.6 Globulin 2.5 Albumin/Globulin Ratio 1.4 Hepatitis A IgM Ab NON-REACTIVE Hep B Core IgM Ab NON-REACTIVE 10/19/25 10/19/25 10/19/25 07:02 07:49 11:23 WBC RBC Hgb Hct MCV MCH MCHC RDW Std Deviation RDW Coeff of Neal Plt Count MPV Sodium Potassium 3.5 Chloride Carbon Dioxide Anion Gap BUN Creatinine Est Cr Clr Drug Dosing eGFR BUN/Creatinine Ratio Glucose POC Glucose 104 H 98 Calcium Phosphorus Magnesium Total Bilirubin Direct Bilirubin AST 299 H ALT Alkaline Phosphatase Total Protein Albumin Globulin Albumin/Globulin Ratio Hepatitis A IgM Ab Hep B Core IgM Ab 10/19/25 10/19/25 10/20/25 16:12 20:46 07:30 WBC RBC Hgb Hct MCV MCH MCHC RDW Std Deviation RDW Coeff of Neal Plt Count MPV Sodium Potassium Chloride Carbon Dioxide Anion Gap BUN Creatinine Est Cr Clr Drug Dosing eGFR BUN/Creatinine Ratio Glucose POC Glucose 109 H 104 H 121 H Calcium Phosphorus Magnesium Total Bilirubin Direct Bilirubin AST ALT Alkaline Phosphatase Total Protein Albumin Globulin Albumin/Globulin Ratio Hepatitis A IgM Ab Hep B Core IgM Ab 10/20/25 10/20/25 10/20/25 08:43 11:29 16:02 WBC RBC Hgb Hct MCV MCH MCHC RDW Std Deviation RDW Coeff of Neal Plt Count MPV Sodium 140 Potassium 3.8 Chloride 100 Carbon Dioxide 34 H Anion Gap 6 BUN 30 H Creatinine 1.26 H D Est Cr Clr Drug Dosing 74.3 eGFR 52.99 BUN/Creatinine Ratio 23.8 H Glucose 158 H POC Glucose 163 H 126 H Calcium 9.2 Phosphorus 3.3 Magnesium 2.1 Total Bilirubin 1.1 H Direct Bilirubin 0.3 H AST 131 H ALT 560 H Alkaline Phosphatase 90 Total Protein 6.3 Albumin 3.9 Globulin Albumin/Globulin Ratio Hepatitis A IgM Ab Hep B Core IgM Ab PG Care Time/CCT Total # of Minutes Spent Total Time Spent with Patient: Total time spent is greater than 50% in coordination of care (as documented) at patient's floor/unit and/or counseling patient: Coding Level of Care Code 01375 SUB INP/OBS CARE 2/35MIN Diagnoses Ischemic hepatitis K72.00
[2025-10-20 10:13] LABS: Albumin Level 3.9 gm/dl (3.4-5.0); Alkaline Phosphatase 90.0 U/L (34-104); Bilirubin,Total 1.1 mg/dl (0.2-1.0); Total Protein 6.3 gm/dl (6.0-8.3)
[2025-10-20 10:29] LABS: Alanine Aminotransferase 560.0 U/L (7-52)
--- NOTE | 2025-10-20 12:20 | Cardiology Progress Note ---
Date of Service October 20, 2025 Assessment & Plan (1) Acute on chronic HFrEF (heart failure with reduced ejection fraction): (2) Permanent atrial fibrillation: (3) Ischemic cardiomyopathy: (4) Abnormal LFTs: (5) LINSEY (obstructive sleep apnea): Plan Assessment: 45 year old female with complex coronary disease, HFrEF, Ischemic cardiomyopathy, permanent A-fib, CAD S/P PCI, PHTN, and medication non- compliance admitted for several days of progressively worsening shortness of breath. Cardiology consulted for further evaluation and recommendation. Acute on chronic HFrEF Permanent atrial fibrillation Ischemic cardiomyopathy HTN Abnormal LFTs LINSEY recommendations: CPAP Continue Eliquis 5mg PO BID, Jardiance 10mg QD, Atorvastatin 80mg QD, Plavix 75mg QD correct and f/u electrolytes f/u renal function PO diuretics GDMT for HFrEF limited due to insurance / financial issues adjust rate control meds keeping HR between 60 to 100 BPM and systolic BP between 100-140 mmHg adjust anti-HTN meds keeping systolic BP between 100-140 mmHg avoid hypovolemia keep patient euvolemic 1.5 L / 24 hr fluid restriction strict I&Os salt restriction Life Vest on discharge EP referral as outpatient for evaluation of device implant DW hopsitalist Admission and Anticipated Discharge Date Admission Date: October 17, 2025 Subjective Patient on exam is siiting in bed in NAD; no c/o cp, sob, palpitations, dizziness, LOC, leg swelling Review of Systems Review of Systems: as per hpi Physical Exam Constitutional: + overweight; no acute distress Eyes: anicteric sclerae, pink conjunctiva Respiratory: no respiratory distress and no labored breathing Auscultation: no rales and no wheezes Cardiovascular: S1, S2, soft systolic murmur Gastrointestinal (Abdomen): soft, obese, NT Psychiatric: A+Ox3, euthymic affect Results & Data Vital Signs (Past 12 Hours) Vital Signs Temp 36.4 C L 10/20/25 10:53 Pulse 80 10/20/25 10:53 Resp 24 10/20/25 10:53 BP 120/76 10/20/25 10:53 Pulse Ox 91 10/20/25 10:53 O2 Del Method Room Air 10/20/25 10:53 O2 Flow Rate 3 10/20/25 07:03 FiO2 40 10/20/25 03:38 Intake & Output 10/19/25 10/20/2510/20/25 18:59 06:59 18:59 Intake Total 360 / 480 120 / 480 Balance 360 / 480 120 / 480 Weight 124.1 kg Intake: Oral 360 / 480 120 / 480 Other: Other Intake Source sips # Unmeasured Voids 5 1 Weight Measurement Method Standing Scale Temp Pulse Pulse Pulse Pulse Resp Resp 10/20/25 10:53 36.4 C L 80 24 10/20/25 10:38 103 H 73 20 10/20/25 07:03 36.3 C L 75 19 10/20/25 03:38 70 20 10/20/25 02:26 36.4 C L 79 14 Resp BP Pulse Ox Pulse Ox Pulse Ox O2 Del Method O2 Flow Rate 10/20/25 10:53 120/76 91 Room Air 10/20/25 10:38 16 92 90 10/20/25 07:03 107/76 95 Nasal Cannula 3 10/20/25 03:38 97 10/20/25 02:26 125/91 96 BiPAP FiO2 10/20/25 10:53 10/20/25 10:38 10/20/25 07:03 10/20/25 03:38 40 10/20/25 02:26 Laboratory Results Laboratory Results WBC 6.69 K/ul (4.8-10.8) 10/19/25 05:27 RBC 4.22 M/uL (4.20-5.40) 10/19/25 05:27 Hgb 13.3 g/dL (12.0-16.0) 10/19/25 05:27 Hct 40.5 % (37.0-47.0) 10/19/25 05:27 MCV 96.0 fL (80.0-100.0) 10/19/25 05:27 MCH 31.5 pg (25.0-34.0) 10/19/25 05:27 MCHC 32.8 g/dL (32.0-36.0) 10/19/25 05:27 RDW Std Deviation 53.4 fL (36.4-46.3) H 10/19/25 05:27 RDW Coeff of Neal 15.3 % (11.5-14.5) H 10/19/25 05:27 Plt Count 202 K/uL (130-400) 10/19/25 05:27 MPV 10.0 fL (9.4-12.4) 10/19/25 05:27 Immature Gran % (Auto) 0.4 % 10/17/25 06:56 Neut % (Auto) 82.3 % 10/17/25 06:56 Lymph % (Auto) 9.3 % 10/17/25 06:56 [place] % (Auto) 7.9 % 10/17/25 06:56 Eos % (Auto) 0.0 % 10/17/25 06:56 Baso % (Auto) 0.1 % 10/17/25 06:56 Neut # (Auto) 7.78 K/uL (1.40-6.50) H 10/17/25 06:56 Lymph # (Auto) 0.88 K/uL (1.20-3.40) L 10/17/25 06:56 [place] # (Auto) 0.75 K/uL (0.11-0.59) H 10/17/25 06:56 Eos # (Auto) 0.00 K/uL (0.00-0.50) 10/17/25 06:56 Baso # (Auto) 0.01 K/uL (0.00-0.20) 10/17/25 06:56 Immature Gran # (Auto) 0.04 K/uL (0.01-0.20) 10/17/25 06:56 PT 17.2 Seconds (9.0-12.0) H 10/17/25 02:31 INR 1.7 (0.9-1.1) H 10/17/25 02:31 VBG pH 7.32 (7.36-7.41) L 10/17/25 06:56 VBG pCO2 61 mmHg (38-50) H 10/17/25 06:56 VBG pO2 76 mmHg 10/17/25 06:56 VBG HCO3 31 mmol/L 10/17/25 06:56 VBG O2 Saturation 95.1 % 10/17/25 06:56 VBG Base Excess 3.4 mEq/L 10/17/25 06:56 Sodium 140 mmol/L (136-145) 10/20/25 08:43 Potassium 3.8 mmol/L (3.5-5.1) 10/20/25 08:43 Chloride 100 mmol/L (98-107) 10/20/25 08:43 Carbon Dioxide 34 mmol/L (21-32) H 10/20/25 08:43 Anion Gap 6 (3-11) 10/20/25 08:43 BUN 30 mg/dl (6-23) H 10/20/25 08:43 Creatinine 1.26 mg/dl (0.6-1.2) H D 10/20/25 08:43 Est Cr Clr Drug Dosing 74.3 ml/min 10/20/25 08:43 eGFR 52.99 10/20/25 08:43 BUN/Creatinine Ratio 23.8 (10-20) H 10/20/25 08:43 Glucose 158 mg/dl (70-99(Fasting)) H 10/20/25 08:43 POC Glucose 163 mg/dl (70-99) H 10/20/25 11:29 Estimat Average Glucose 134 mg/dl 10/17/25 06:51 Hemoglobin A1c 6.3 % (4.5-5.6) H 10/17/25 06:51 Calcium 9.2 mg/dl (8.6-10.3) 10/20/25 08:43 Phosphorus 3.3 mg/dl (2.5-4.9) 10/20/25 08:43 Magnesium 2.1 mg/dl (1.7-2.4) 10/20/25 08:43 Total Bilirubin 1.1 mg/dl (0.2-1.0) H 10/20/25 08:43 Direct Bilirubin 0.3 mg/dl (0-0.2) H 10/20/25 08:43 AST 131 U/L (13-39) H 10/20/25 08:43 ALT 560 U/L (7-52) H 10/20/25 08:43 Alkaline Phosphatase 90 U/L (34-104) 10/20/25 08:43 Troponin I High Sens 170.3 pg/ml (0-14) H* D 10/17/25 18:59 B-Natriuretic Peptide 1110 pg/ml (0-100) H 10/17/25 02:31 Total Protein 6.3 gm/dl (6.0-8.3) 10/20/25 08:43 Albumin 3.9 gm/dl (3.4-5.0) 10/20/25 08:43 Globulin 2.5 gm/dl (2.5-4.0) 10/19/25 05:27 Albumin/Globulin Ratio 1.4 (0.9-2) 10/19/25 05:27 Procalcitonin 0.24 ng/ml (0-0.5) 10/17/25 06:51 TSH 5.082 uIu/ml (0.300-4.500) H 10/17/25 02:31 Free T4 1.48 ng/dl (0.61-1.60) 10/17/25 02:31 Acetaminophen < 3 ug/ml (10-30) L 10/17/25 06:51 Hepatitis A IgM Ab NON-REACTIVE (NON-REACTIVE) 10/17/25 10:13 Hep Bs Antigen Negative (Negative) 10/17/25 10:13 Hep B Core IgM Ab NON-REACTIVE (NON-REACTIVE) 10/17/25 10:13 Hepatitis C Antibody Negative (Negative) 10/17/25 10:13 Impressions Chest X-Ray 10/17/25 02:31 EXAM: XR chest 1V portable CLINICAL HISTORY: Shortness of breath, hypoxia. TECHNIQUE: An X-ray image of the chest is obtained in AP projection. COMPARISON: 08/24/2025 FINDINGS: Pulmonary Parenchyma: Bilateral perihilar pulmonary congestion, with bilateral streaky linear pattern and bilateral lower zone haziness suggestive of parenchymal edema. No pulmonary nodules are identified. Bilateral CP angles blunting, could be due to pleural effusion or pleural thickening. Heart and Mediastinum: Enlarged heart shadow. No mediastinal widening or masses. No hilar or mediastinal lymphadenopathy. Bony Thorax: Bony thorax appears intact without fractures or deformities. Soft Tissues: Soft tissues overlying the chest wall are unremarkable. IMPRESSION: No apparent interval changes. Bilateral signs of pulmonary edema/pulmonary congestion. Cardiomegaly. To be correlated clinically. Electronically signed by Harshad Hagan 10-17-2025 03:41 AM Abdomen Ultrasound 10/17/25 03:57 EXAM: US abdomen limited CLINICAL HISTORY: Abn LFT's. TECHNIQUE: Ultrasound examination of the RUQ was performed. Scanning was performed with the patient in the supine position. The following structures were specifically evaluated: COMPARISON: None available. FINDINGS: Very limited exam due to the patient's body habitus and breathing. Liver: Liver size: 19.8 cm. Liver appears enlarged in size with increased echogenicity, due to fatty liver. Possible Waldemar's lobe No evidence of focal lesions, cysts, or masses. Hepatic vasculature appears normal. MPV: Patent. Gallbladder: Thickened gallbladder wall measuring 1.0cm without hyperemia. Possible pericholecystic fluid visualized. Trace free fluid seen within the RUQ. No obvious stones were visualized. Biliary Tree: CBD: Unable to be clearly visualized due to the patient's body habitus. CBD at janet hepatis measures 0.35 cm. No evidence of choledocholithiasis or biliary obstruction. Unremarkable pancreas. Right Kidney: Right kidney size: 10.2 cm. The right kidney appears normal in size with preserved corticomedullary differentiation. No evidence of hydronephrosis, renal cysts, or masses. IMPRESSION: Ultrasound examination of the Right Upper Quadrant (RUQ): 1. Hepatomegaly with steatosis. 2. Thickened gallbladder wall measuring 1.0 cm without hyperemia. Possible pericholecystic fluid visualized. Trace free fluid seen within the RUQ. No obvious stones were visualized. The findings could represent gall bladder wall edema secondary to ascites, rather than acute cholecystitis. Please correlate with clinical and lab data. RECOMMENDATIONS: Clinical correlation with symptoms and further evaluation as indicated. Electronically signed by Harshad Hagan 10-17-2025 06:37 AM Diagnostic Findings Cardiac Enzymes 10/20/25 Range/Units 08:43 AST 131 H (13-39) U/L Comprehensive Metabolic Panel 10/20/25 Range/Units 08:43 Sodium 140 (136-145) mmol/L Potassium 3.8 (3.5-5.1) mmol/L Chloride 100 (98-107) mmol/L Carbon Dioxide 34 H (21-32) mmol/L BUN 30 H (6-23) mg/dl Creatinine 1.26 H D (0.6-1.2) mg/dl Glucose 158 H (70-99(Fasting)) mg/dl Calcium 9.2 (8.6-10.3) mg/dl Direct Bilirubin 0.3 H (0-0.2) mg/dl AST 131 H (13-39) U/L ALT 560 H (7-52) U/L Alkaline Phosphatase 90 (34-104) U/L Total Protein 6.3 (6.0-8.3) gm/dl Albumin 3.9 (3.4-5.0) gm/dl Intake and Output 10/19/25 10/20/25 10/20/25 22:59 06:59 14:59 Intake Total 120 / 480 Balance 120 / 480 Intake: Oral 120 / 480 Other: Other Intake Source sips # Unmeasured Voids 1 Weight 124.1 kg Weight Measurement Method Standing Scale PG Care Time/CCT Total # of Minutes Spent Total Time Spent with Patient: Total time spent is greater than 50% in coordination of care (as documented) at patient's floor/unit and/or counseling patient: Coding Level of Care Code 02406 SUB INP/OBS CARE 3/50MIN Diagnoses Acute on chronic HFrEF (heart failure with reduced ejection fraction) I50.23 Permanent atrial fibrillation I48.21 Ischemic cardiomyopathy I25.5 Abnormal LFTs R79.89 LINSEY (obstructive sleep apnea) G47.33
--- NOTE | 2025-10-20 16:32 | Hospitalist Progress Note ---
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 Decline in EF thought to be from noncompliance with medications. Her symptoms improved with diuretics. As she was not able to afford Entresto and she was placed on losartan 12.5 mg daily. She was supposed to get LifeVest at home. As per aunt she did not had LifeVest yet. Also her CPAP was not working and supposed to get new CPAP machine but not delivered yet and she is not using CPAP for about a month now. Acute on chronic heart failure with reduced ejection fraction Labs on admission noted K of 6.8, Cr 1.85, Tbil 3.6, AST 1655, ALT 1389, Alk P 132, Trop 326->281, BNP 1110 CXR noted pulm edema/congestion TTE 10/17/25 noted EF 20-25%, RVSF is borderline reduced, mod MR, dilated IVC with reduced collapsibility with sniff indicates elevated RAP of 15mmHg Improved with IV diuresis Discussed with [facility] Therapy Nurse today who recommends continuing furosemide 40mg BID, stopping spironolactone/potassium/digoxin Continue jardiance DENI on CKD stage III Hyperkalemia - resolved Baseline creatinine 1.4-1.5 Presented with creatinine 1.8 Cr is 1.26 today Nephro recs noted Monitor electrolytes and replete as appropriate History of prediabetes Continue home Jardiance HbA1c 6.3 History of CAD status post stent Continue Plavix, statin and Eliquis and metoprolol Elevated LFTs On admission, Total Bilirubin 3.6, AST 1655, ALT 1389, alkaline phos 132 Mostly from congestive hepatopathy from CHF Abd USS noted hepatomegaly with steatosis, thickened gall bladder. Possible pericholecystic fluid LFT improving with management of CHF. Tbil down to 1.1, AST 131, ALT 560 and ALk Phos 90 today History of A-fib On Eliquis and metoprolol Reports she has been off digoxin for sometime Obstructive sleep apnea Not compliant with her CPAP. Stated her machine is old and needs replacement Reports she is supposed to follow up with sleep medicine for that Continue BIPAP/CPAP inpatient Hyperlipidemia On statin Anxiety On fluoxetine Counseled regarding smoking cessation Counseled patient regarding med adherence Multiple conversations with CM and patient Multiple reports of poor compliance from [employer] Patient had stated she started MA process. However, CM confirmed she did not complete what she was supposed to do Counseled patient about need for adherence to plans, management, meds, appts and importance of Life Vest CM working with patient regarding LifeVest DVT prophylaxis-On Eliquis Full code. I spent a total of 55 minutes coordinating, documenting and providing care for this patient excluding time spent in performance of separately billed services Admission and Anticipated Discharge Date Admission Date: October 17, 2025 Subjective Patient seen and examined Feeling better today Physical Exam Constitutional: + well hydrated and + obese; no acute di stress Eyes: PERRL, conjunctivae normal, anicteric sclerae ENMT: external ear and nose normal, oropharynx normal Respiratory: Not in resp distress. On room air. Diminished breath sounds. No crackles/wheeze Cardiovascular: Rate/Rhythm: + irregularly irregular Gastrointestinal (Abdomen): normal bowel sounds, soft, nontender, no hepatosplenomegaly Musculoskeletal: Improved pedal edema Neurologic: PERRL, EOMI, accommodation nl, no face palsy, no dysarthria Psychiatric: A+Ox3, euthymic affect Results & Data Results & Data Vital Signs (Past 12 Hours) Vital Signs Temp Pulse Pulse Pulse Resp Resp Resp 10/20/25 15:17 36.4 C L 69 19 10/20/25 10:53 36.4 C L 80 24 10/20/25 10:38 103 H 73 20 16 10/20/25 07:03 36.3 C L 75 19 BP Pulse Ox Pulse Ox Pulse Ox O2 Del Method O2 Flow Rate 10/20/25 15:17 114/70 95 Room Air 10/20/25 10:53 120/76 91 Room Air 10/20/25 10:38 92 90 12/23/25 07:03 107/76 95 Nasal Cannula 3 Laboratory Results Abnormal lab results 10/19/25 10/20/25 10/20/25 Range/Units 20:46 07:30 08:43 Carbon Dioxide 34 H (21-32) mmol/L BUN 30 H (6-23) mg/dl Creatinine 1.26 H D (0.6-1.2) mg/dl BUN/Creatinine Ratio 23.8 H (10-20) Glucose 158 H (70-99(Fasting)) mg/dl POC Glucose 104 H 121 H (70-99) mg/dl Total Bilirubin 1.1 H (0.2-1.0) mg/dl Direct Bilirubin 0.3 H (0-0.2) mg/dl AST 131 H (13-39) U/L ALT 560 H (7-52) U/L 10/20/25 10/20/25 Range/Units 11:29 16:02 Carbon Dioxide (21-32) mmol/L BUN (6-23) mg/dl Creatinine (0.6-1.2) mg/dl BUN/Creatinine Ratio (10-20) Glucose (70-99(Fasting)) mg/dl POC Glucose 163 H 126 H (70-99) mg/dl Total Bilirubin (0.2-1.0) mg/dl Direct Bilirubin (0-0.2) mg/dl AST (13-39) U/L ALT (7-52) U/L
[2025-10-20] MEDS: FUROSEMIDE 40 MG TAB PO SCH (17:10)
[2025-10-21] MEDS: ONDANSETRON INJ 2 MG/ML 2 ML VIAL IV STA (02:52)
[2025-10-21 06:34] LABS: Hematocrit (blood only) 44.2 % (37.0-47.0); Hemoglobin 14.7 g/dL (12.0-16.0); Mean Corpuscular Hemoglobin 31.7 pg (25.0-34.0); Mean Corpuscular Volume 95.3 fL (80.0-100.0); Platelet Count 225 K/uL (130-400); RDW Standard Deviation 52.6 fL (36.4-46.3); Red Blood Count 4.64 M/uL (4.20-5.40); White Blood Count 10.56 K/ul (4.8-10.8)
[2025-10-21 07:17] LABS: Anion Gap 10.0 (3-11); Blood Urea Nitrogen 33.0 mg/dl (6-23); Calcium 9.6 mg/dl (8.6-10.3); Carbon Dioxide 33.0 mmol/L (21-32); Chloride 98.0 mmol/L (98-107); Creatinine Clr Calc Pharmacy 64.5 ml/min; Glucose 99.0 mg/dl (70-99(Fasting)); Magnesium 2.1 mg/dl (1.7-2.4); Potassium 4.1 mmol/L (3.5-5.1); Sodium 141.0 mmol/L (136-145)
--- NOTE | 2025-10-21 16:08 | Cardiology Progress Note ---
Date of Service October 21, 2025 Assessment & Plan (1) Acute on chronic HFrEF (heart failure with reduced ejection fraction): (2) Permanent atrial fibrillation: (3) Ischemic cardiomyopathy: (4) Abnormal LFTs: (5) LINSEY (obstructive sleep apnea): Plan Assessment: 45 year old female with complex coronary disease, HFrEF, Ischemic cardiomyopathy, permanent A-fib, CAD S/P PCI, PHTN, and medication non- compliance admitted for several days of progressively worsening shortness of breath. Cardiology consulted for further evaluation and recommendation. Acute on chronic HFrEF - imp, stable Permanent atrial fibrillation with CVR Ischemic cardiomyopathy w LVEF 20-25% HTN Abnormal LFTs LINSEY CAD S/P PCI Moderate MR recommendations: CPAP Continue Eliquis 5mg PO BID, Jardiance 10mg QD, Atorvastatin 80mg QD, Plavix 75mg QD correct and f/u electrolytes f/u renal function Continue PO diuretics GDMT for HFrEF limited due to insurance / financial issues adjust rate control meds keeping HR between 60 to 100 BPM and systolic BP between 100-140 mmHg adjust anti-HTN meds keeping systolic BP between 100-140 mmHg avoid hypovolemia keep patient euvolemic 1.5 L / 24 hr fluid restriction strict I&Os salt restriction Life Vest on discharge EP referral as outpatient for evaluation of device implant Admission and Anticipated Discharge Date Admission Date: October 17, 2025 Subjective Patient on exam is lying in bed in NAD; no c/o cp, sob, palpitations, dizziness, LOC no leg swelling Review of Systems Review of Systems: as per hpi Physical Exam Constitutional: + overweight; no acute distress Neck: supple, NT Respiratory: no respiratory distress and no labored breathing Auscultation: no rales and no wheezes Gastrointestinal (Abdomen): soft, obese, NT, BS+ Psychiatric: A+Ox3, euthymic affect Results & Data Vital Signs (Past 12 Hours) Vital Signs Vital Signs Temp 36.3 C L 10/21/25 11:28 Pulse 74 10/21/25 13:21 Resp 19 10/21/25 13:21 BP 103/69 10/21/25 11:28 Pulse Ox 96 10/21/25 13:21 O2 Del Method Nasal Cannula 10/21/25 15:54 O2 Flow Rate 3 10/21/25 15:54 FiO2 40 10/21/25 13:21 Intake & Output 10/20/25 10/21/25 10/21/25 18:59 06:59 18:59 Intake Total 420 / 640 220 / 640 840 / 840 Balance 420 / 640 220 / 640 840 / 840 Intake: Oral 420 / 640 220 / 640 840 / 840 Other: # Unmeasured Voids 4 1 1 Temp Pulse Pulse Resp BP Pulse Ox O2 Del Method 10/21/25 13:21 74 19 96 10/21/25 11:28 36.3 C L 75 24 103/69 80 L Room Air 10/21/25 08:58 Nasal Cannula 10/21/25 07:51 36.5 C 85 22 111/77 95 CPAP O2 Flow Rate FiO2 10/21/25 13:21 40 10/21/25 11:28 10/21/25 08:58 3 10/21/25 07:51 Laboratory Results Laboratory Results WBC 10.56 K/ul (4.8-10.8) 10/21/25 05:28 RBC 4.64 M/uL (4.20-5.40) 10/21/25 05:28 Hgb 14.7 g/dL (12.0-16.0) 10/21/25 05:28 Hct 44.2 % (37.0-47.0) 10/21/25 05:28 MCV 95.3 fL (80.0-100.0) 10/21/25 05:28 MCH 31.7 pg (25.0-34.0) 10/21/25 05:28 MCHC 33.3 g/dL (32.0-36.0) 10/21/25 05:28 RDW Std Deviation 52.6 fL (36.4-46.3) H 10/21/25 05:28 RDW Coeff of Neal 15.1 % (11.5-14.5) H 10/21/25 05:28 Plt Count 225 K/uL (130-400) 10/21/25 05:28 MPV 10.3 fL (9.4-12.4) 10/21/25 05:28 Immature Gran % (Auto) 0.4 % 10/17/25 06:56 Neut % (Auto) 82.3 % 10/17/25 06:56 Lymph % (Auto) 9.3 % 10/17/25 06:56 Marinette % (Auto) 7.9 % 10/17/25 06:56 Eos % (Auto) 0.0 % 10/17/25 06:56 Baso % (Auto) 0.1 % 10/17/25 06:56 Neut # (Auto) 7.78 K/uL (1.40-6.50) H 10/17/25 06:56 Lymph # (Auto) 0.88 K/uL (1.20-3.40) L 10/17/25 06:56 Marinette # (Auto) 0.75 K/uL (0.11-0.59) H 10/17/25 06:56 Eos # (Auto) 0.00 K/uL (0.00-0.50) 10/17/25 06:56 Baso # (Auto) 0.01 K/uL (0.00-0.20) 10/17/25 06:56 Immature Gran # (Auto) 0.04 K/uL (0.01-0.20) 10/17/25 06:56 PT 17.2 Seconds (9.0-12.0) H 10/17/25 02:31 INR 1.7 (0.9-1.1) H 10/17/25 02:31 VBG pH 7.32 (7.36-7.41) L 10/17/25 06:56 VBG pCO2 61 mmHg (38-50) H 10/17/25 06:56 VBG pO2 76 mmHg 10/17/25 06:56 VBG HCO3 31 mmol/L 10/17/25 06:56 VBG O2 Saturation 95.1 % 10/17/25 06:56 VBG Base Excess 3.4 mEq/L 10/17/25 06:56 Sodium 141 mmol/L (136-145) 10/21/25 05:28 Potassium 4.1 mmol/L (3.5-5.1) 10/21/25 05:28 Chloride 98 mmol/L (98-107) 10/21/25 05:28 Carbon Dioxide 33 mmol/L (21-32) H 10/21/25 05:28 Anion Gap 10 (3-11) 10/21/25 05:28 BUN 33 mg/dl (6-23) H 10/21/25 05:28 Creatinine 1.45 mg/dl (0.6-1.2) H 10/21/25 05:28 Est Cr Clr Drug Dosing 64.5 ml/min 10/21/25 05:28 eGFR 44.77 10/21/25 05:28 BUN/Creatinine Ratio 22.8 (10-20) H 10/21/25 05:28 Glucose 99 mg/dl (70-99(Fasting)) 10/21/25 05:28 POC Glucose 115 mg/dl (70-99) H 10/21/25 11:24 Estimat Average Glucose 134 mg/dl 10/17/25 06:51 Hemoglobin A1c 6.3 % (4.5-5.6) H 10/17/25 06:51 Calcium 9.6 mg/dl (8.6-10.3) 10/21/25 05:28 Phosphorus 3.7 mg/dl (2.5-4.9) 10/21/25 05:28 Magnesium 2.1 mg/dl (1.7-2.4) 10/21/25 05:28 Total Bilirubin 1.1 mg/dl (0.2-1.0) H 10/20/25 08:43 Direct Bilirubin 0.3 mg/dl (0-0.2) H 10/20/25 08:43 AST 131 U/L (13-39) H 10/20/25 08:43 ALT 560 U/L (7-52) H 10/20/25 08:43 Alkaline Phosphatase 90 U/L (34-104) 10/20/25 08:43 Troponin I High Sens 170.3 pg/ml (0-14) H* D 10/17/25 18:59 B-Natriuretic Peptide 1110 pg/ml (0-100) H 10/17/25 02:31 Total Protein 6.3 gm/dl (6.0-8.3) 10/20/25 08:43 Albumin 3.9 gm/dl (3.4-5.0) 10/20/25 08:43 Globulin 2.5 gm/dl (2.5-4.0) 10/19/25 05:27 Albumin/Globulin Ratio 1.4 (0.9-2) 10/19/25 05:27 Procalcitonin 0.24 ng/ml (0-0.5) 10/17/25 06:51 TSH 5.082 uIu/ml (0.300-4.500) H 10/17/25 02:31 Free T4 1.48 ng/dl (0.61-1.60) 10/17/25 02:31 Acetaminophen < 3 ug/ml (10-30) L 10/17/25 06:51 Hepatitis A IgM Ab NON-REACTIVE (NON-REACTIVE) 10/17/25 10:13 Hep Bs Antigen Negative (Negative) 10/17/25 10:13 Hep B Core IgM Ab NON-REACTIVE (NON-REACTIVE) 10/17/25 10:13 Hepatitis C Antibody Negative (Negative) 10/17/25 10:13 Impressions Chest X-Ray 10/17/25 02:31 EXAM: XR chest 1V portable CLINICAL HISTORY: Shortness of breath, hypoxia. TECHNIQUE: An X-ray image of the chest is obtained in AP projection. COMPARISON: 08/24/2025 FINDINGS: Pulmonary Parenchyma: Bilateral perihilar pulmonary congestion, with bilateral streaky linear pattern and bilateral lower zone haziness suggestive of parenchymal edema. No pulmonary nodules are identified. Bilateral CP angles blunting, could be due to pleural effusion or pleural thickening. Heart and Mediastinum: Enlarged heart shadow. No mediastinal widening or masses. No hilar or mediastinal lymphadenopathy. Bony Thorax: Bony thorax appears intact without fractures or deformities. Soft Tissues: Soft tissues overlying the chest wall are unremarkable. IMPRESSION: No apparent interval changes. Bilateral signs of pulmonary edema/pulmonary congestion. Cardiomegaly. To be correlated clinically. Electronically signed by Harshad Hagan 10-17-2025 03:41 AM Abdomen Ultrasound 10/17/25 03:57 EXAM: US abdomen limited CLINICAL HISTORY: Abn LFT's. TECHNIQUE: Ultrasound examination of the RUQ was performed. Scanning was performed with the patient in the supine position. The following structures were specifically evaluated: COMPARISON: None available. FINDINGS: Very limited exam due to the patient's body habitus and breathing. Liver: Liver size: 19.8 cm. Liver appears enlarged in size with increased echogenicity, due to fatty liver. Possible Waldemar's lobe No evidence of focal lesions, cysts, or masses. Hepatic vasculature appears normal. MPV: Patent. Gallbladder: Thickened gallbladder wall measuring 1.0cm without hyperemia. Possible pericholecystic fluid visualized. Trace free fluid seen within the RUQ. No obvious stones were visualized. Biliary Tree: CBD: Unable to be clearly visualized due to the patient's body habitus. CBD at janet hepatis measures 0.35 cm. No evidence of choledocholithiasis or biliary obstruction. Unremarkable pancreas. Right Kidney: Right kidney size: 10.2 cm. The right kidney appears normal in size with preserved corticomedullary differentiation. No evidence of hydronephrosis, renal cysts, or masses. IMPRESSION: Ultrasound examination of the Right Upper Quadrant (RUQ): 1. Hepatomegaly with steatosis. 2. Thickened gallbladder wall measuring 1.0 cm without hyperemia. Possible pericholecystic fluid visualized. Trace free fluid seen within the RUQ. No obvious stones were visualized. The findings could represent gall bladder wall edema secondary to ascites, rather than acute cholecystitis. Please correlate with clinical and lab data. RECOMMENDATIONS: Clinical correlation with symptoms and further evaluation as indicated. Electronically signed by Harshad Hagan 10-17-2025 06:37 AM Diagnostic Findings CBC 10/21/25 Range/Units 05:28 WBC 10.56 (4.8-10.8) K/ul RBC 4.64 (4.20-5.40) M/uL Hgb 14.7 (12.0-16.0) g/dL Hct 44.2 (37.0-47.0) % Plt Count 225 (130-400) K/uL Comprehensive Metabolic Panel 10/21/25 Range/Units 05:28 Sodium 141 (136-145) mmol/L Potassium 4.1 (3.5-5.1) mmol/L Chloride 98 (98-107) mmol/L Carbon Dioxide 33 H (21-32) mmol/L BUN 33 H (6-23) mg/dl Creatinine 1.45 H (0.6-1.2) mg/dl Glucose 99 (70-99(Fasting)) mg/dl Calcium 9.6 (8.6-10.3) mg/dl Intake and Output 10/21/25 10/21/25 10/21/25 06:59 14:59 22:59 Intake Total 840 / 840 Balance 840 / 840 Intake: Oral 840 / 840 Other: # Unmeasured Voids 1 Medications Administered Home Medications Medication Instructions Recorded Confirmed Last Taken digoxin 250 mcg (0.25 mg) tablet 250 mcg PO DAILY 10/17/25 10/17/25 Unknown potassium chloride 10 mEq 10 meq PO DAILY 10/17/25 10/17/25 Unknown capsule,extended release spironolactone 25 mg tablet 12.5 mg PO DAILY 10/17/25 10/17/25 Unknown apixaban 5 mg tablet (Eliquis) 5 mg PO BID #60 tabs 10/20/25 Unknown atorvastatin 80 mg tablet 80 mg PO DAILY #30 tabs 10/20/25 Unknown clopidogrel 75 mg tablet 75 mg PO DAILY #30 tabs 10/20/25 Unknown empagliflozin 10 mg tablet 10 mg PO DAILY #30 tabs 10/20/25 Unknown (Jardiance) fluoxetine 20 mg capsule 20 mg PO DAILY #30 caps 10/20/25 Unknown furosemide 40 mg tablet 40 mg PO BID #60 tabs 10/20/25 Unknown losartan 25 mg tablet 12.5 mg (1/2 x 25 mg) PO DAILY #15 10/20/25 Unknown tabs metoprolol succinate 100 mg 100 mg PO DAILY #30 tabs 10/20/25 Unknown tablet,extended release 24 hr Active Medications Generic Name Dose Route Start Last Admin Trade Name Harrison PRN Reason Stop Dose Admin Apixaban 5 mg 10/17/25 09:00 10/21/25 08:40 Apixaban 5 Mg Tablet PO 11/16/25 08:59 5 mg BID ROLAND Administration Atorvastatin Calcium 80 mg 10/17/25 09:00 10/21/25 08:40 Atorvastatin 40 Mg Tab PO 11/16/25 08:59 80 mg DAILY ROLAND Administration Clopidogrel Bisulfate 75 mg 10/17/25 09:00 10/21/25 08:41 Clopidogrel Bisulfate 75 Mg Tab PO 11/16/25 08:59 75 mg DAILY ROLAND Administration Empagliflozin 10 mg 10/17/25 09:00 10/21/25 08:41 Empagliflozin 10 Mg Tab PO 11/16/25 08:59 10 mg DAILY ROLAND Administration Fluoxetine HCl 20 mg 10/17/25 09:00 10/21/25 08:41 Fluoxetine Hcl 20 Mg Cap PO 11/16/25 08:59 20 mg DAILY ROLAND Administration Furosemide 40 mg 10/20/25 17:00 10/21/25 08:41 Furosemide 40 Mg Tab PO 11/19/25 16:59 40 mg [id number] ROLAND Administration Insulin Aspart 0 units 10/17/25 11:30 10/21/25 13:29 Insulin Aspart Per Unit Charge SC 11/16/25 11:29 Not Given ACHS ROLAND Metoprolol Succinate 100 mg 10/17/25 09:00 10/21/25 08:41 Metoprolol Succ 50mg Ext Rel Tab PO 11/16/25 08:59 100 mg DAILY ROLAND Administration PG Care Time/CCT Total # of Minutes Spent Total Time Spent with Patient: Total time spent is greater than 50% in coordination of care (as documented) at patient's floor/unit and/or counseling patient: Coding Level of Care Code 77167 SUB INP/OBS CARE 3/50MIN Diagnoses Acute on chronic HFrEF (heart failure with reduced ejection fraction) I50.23 Permanent atrial fibrillation I48.21 Ischemic cardiomyopathy I25.5 Abnormal LFTs R79.89 LINSEY (obstructive sleep apnea) G47.33
[2025-10-21 16:33] VITALS: BP 129/97; PULSE 77; RESP 22; TEMP 98.6; O2SAT 95
--- NOTE | 2025-10-21 16:50 | Discharge Summary ---
Discharge Summary Date of Service October 21, 2025 Principal Dx & Hospital Course #1 = Principal Diagnosis (1) Acute on chronic HFrEF (heart failure with reduced ejection fraction): per previous hospitalist notes with addendum: 45-year-old female with past medical history significant for chronic systolic CHF, COPD, obstructive sleep apnea, dyslipidemia, prediabetes, chronic atrial fibrillation, history of thrombosis of right internal jugular vein, history of non-ST elevated MS, history of CAD s/p angioplasty with stent, hypertension, pulm hypertension, history of right MCA CVA, mediastinal lymphadenopathy, obesity, CKD stage III, migraine, 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 Decline in EF thought to be from noncompliance with medications. Her symptoms improved with diuretics. As she was not able to afford Entresto and she was placed on losartan 12.5 mg daily. She was supposed to get LifeVest at home. As per aunt she did not had LifeVest yet. Also her CPAP was not working and supposed to get new CPAP machine but not delivered yet and she is not using CPAP for about a month now. Acute on chronic heart failure with reduced ejection fraction Labs on admission noted K of 6.8, Cr 1.85, Tbil 3.6, AST 1655, ALT 1389, Alk P 132, Trop 326->281, BNP 1110 CXR noted pulm edema/congestion TTE 10/17/25 noted EF 20-25%, RVSF is borderline reduced, mod MR, dilated IVC with reduced collapsibility with sniff indicates elevated RAP of 15mmHg Improved with IV diuresis Discussed with Electric Knife Operator today who recommends continuing furosemide 40mg BID, stopping spironolactone/potassium/digoxin Continue jardiance 10/21 stable for discharge LifeVest placed will need to follow up with Cardiology Clinic in 1 week patient advised strictly no driving until allowed by Electric Knife Operator, she verbalized understanding and agreement also needs 2 L of O2 with ambulation, portable O2 also provided DENI on CKD stage III Hyperkalemia - resolved Baseline creatinine 1.4-1.5 Presented with creatinine 1.8 Cr is 1.45 today Nephro recs noted - repeat BMP and close monitoring as outpatient History of prediabetes Continue home Jardiance HbA1c 6.3 History of CAD status post stent Continue Plavix, statin and Eliquis and metoprolol Elevated LFTs Hepatic Steatosis Thickened Gallbladder wall with possible Pericholecystic Fluid On admission, Total Bilirubin 3.6, AST 1655, ALT 1389, alkaline phos 132 Mostly from congestive hepatopathy from CHF Abd USS noted hepatomegaly with steatosis, thickened gall bladder. Possible pericholecystic fluid LFT improving with management of CHF. Tbil down to 1.1, AST 131, ALT 560 and ALk Phos 90 today - Further work up, management, and ff up as outpatient History of A-fib On Eliquis and metoprolol Reports she has been off digoxin for sometime Obstructive sleep apnea Not compliant with her CPAP. Stated her machine is old and needs replacement Reports she is supposed to follow up with sleep medicine for that Continue BIPAP/CPAP inpatient Hyperlipidemia On statin Anxiety On fluoxetine Counseled regarding smoking cessation Counseled patient regarding med adherence Multiple conversations with CM and patient Multiple reports of poor compliance from [facility] Patient had stated she started MA process. However, CM confirmed she did not complete what she was supposed to do Counseled patient about need for adherence to plans, management, meds, appts and importance of Life Vest DVT prophylaxis-On Eliquis Full code. plan of care discussed with patient in detail and at length all questions answered she is understanding, agreeable, comfortable with the plan of care Notes For Next Care Provider Medication Changes From Visit as per med rec Admission HPI Per Admitting Provider 45-year-old female with past medical history significant for chronic systolic CHF, COPD, obstructive sleep apnea, dyslipidemia, prediabetes, chronic atrial fibrillation, history of thrombosis of right internal jugular vein, history of non-ST elevated MS, history of CAD s/p angioplasty with stent, hypertension, pulm hypertension, history of right MCA CVA, mediastinal lymphadenopathy, obesity, CKD stage III, migraine, 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 Last 2 to 3 days patient was feeling short of breath. Has some cough. Was having back pain. B ecause of ongoing shortness of breath patient was brought to the ER. In the ER she was saturating 84%. Currently on BiPAP she is saturating okay. She is feeling better. Denies any chest pain. Denies any headache. Vision is okay. Denies runny nose or sore throat. No abdominal pain. Normal bowel and bladder movements. Ambulates without support. Patient was recently in the hospital and was discharged on 08/28/2025. She was admitted for acute on chronic heart failure with reduced ejection fraction. Echo on 08/25/2025 shows EF of 25 to 30%. Decline in EF thought to be from noncompliance with medications. Her symptoms improved with diuretics. As she was not able to afford Entresto and she was placed on losartan 12.5 mg daily. But seems current med [facility] also has Entresto. She was supposed to get LifeVest at home. As per aunt she did not had LifeVest yet. Also her CPAP was not working and supposed to get new CPAP machine but not delivered yet and she is not using CPAP for about a month now.Denies taking any Tylenol. Past medical history. As mentioned above. Past surgical history. Left heart catheterization. Cryocautery of cervix. Hysteroscopy. Tonsillectomy and adenoidectomy. Social history. Smokes 1 pack a day. No alcohol use.. Smokes marijuana as per [employer] Family history. Mother had arthritis. Depression. Stroke. Son has hypertension. Maternal aunt had cancer. Maternal grandfather had heart disorder. Hypertension. Admission Exam Per Admitting Provider General- Not in distress Head- atraumatic Eyes- PERRL. ENT- oropharynx clear Neck- supple, no JVD. Lungs- clear to auscultation mild bibasilar crackles, no wheezing Heart- regular rhythm; no murmur, no gallop. Abdomen- normal bowel sounds, soft, nontender, no distension Extremities- b/l mild pedal edema present, no erythema seen Neuro- alert, oriented PERRL, no facial palsy; no dysarthria; moves extremities Discharge Exam General- oriented x 3, not in distress, speaks in sentences with no effort or accessory muscle use Eyes- anicteric Neck- no JVD Lungs- clear breath sounds bilaterally, no rales/wheezes Heart- normal rate, regular rhythm; no murmurs Abdomen- normal bowel sounds, nondistended, soft, nontender Extremities- no pretibial edema, no calf tenderness Neuro- alert, oriented x 3; no gross focal neurologic deficits Skin- warm & dry Updated Medication List Medication Instructions Recorded Confirmed Type apixaban 5 mg tablet (Eliquis) 5 mg PO BID #60 tabs 10/20/25 Rx atorvastatin 80 mg tablet 80 mg PO DAILY #30 tabs 10/20/25 Rx clopidogrel 75 mg tablet 75 mg PO DAILY #30 tabs 10/20/25 Rx empagliflozin 10 mg tablet 10 mg PO DAILY #30 tabs 10/20/25 Rx (Jardiance) fluoxetine 20 mg capsule 20 mg PO DAILY #30 caps 10/20/25 Rx furosemide 40 mg tablet 40 mg PO BID #60 tabs 10/20/25 Rx losartan 25 mg tablet 12.5 mg (1/2 x 25 mg) PO DAILY #15 10/20/25 Rx tabs metoprolol succinate 100 mg 100 mg PO DAILY #30 tabs 10/20/25 Rx tablet,extended release 24 hr Hospital Stay Data Consultations 10/17/25 04:33 ED Decision to Admit Stat 10/17/25 08:00 Consult Cardiology Routine Consult Gastroenterology Routine Consult Nephrology Routine Diagnostic Imagining Performed Laboratory Results WBC 10.56 K/ul (4.8-10.8) 10/21/25 05:28 RBC 4.64 M/uL (4.20-5.40) 10/21/25 05:28 Hgb 14.7 g/dL (12.0-16.0) 10/21/25 05:28 Hct 44.2 % (37.0-47.0) 10/21/25 05:28 MCV 95.3 fL (80.0-100.0) 10/21/25 05:28 MCH 31.7 pg (25.0-34.0) 10/21/25 05:28 MCHC 33.3 g/dL (32.0-36.0) 10/21/25 05:28 RDW Std Deviation 52.6 fL (36.4-46.3) H 10/21/25 05:28 RDW Coeff of Neal 15.1 % (11.5-14.5) H 10/21/25 05:28 Plt Count 225 K/uL (130-400) 10/21/25 05:28 MPV 10.3 fL (9.4-12.4) 10/21/25 05:28 Immature Gran % (Auto) 0.4 % 10/17/25 06:56 Neut % (Auto) 82.3 % 10/17/25 06:56 Lymph % (Auto) 9.3 % 10/17/25 06:56 Sioux % (Auto) 7.9 % 10/17/25 06:56 Eos % (Auto) 0.0 % 10/17/25 06:56 Baso % (Auto) 0.1 % 10/17/25 06:56 Neut # (Auto) 7.78 K/uL (1.40-6.50) H 10/17/25 06:56 Lymph # (Auto) 0.88 K/uL (1.20-3.40) L 10/17/25 06:56 Sioux # (Auto) 0.75 K/uL (0.11-0.59) H 10/17/25 06:56 Eos # (Auto) 0.00 K/uL (0.00-0.50) 10/17/25 06:56 Baso # (Auto) 0.01 K/uL (0.00-0.20) 10/17/25 06:56 Immature Gran # (Auto) 0.04 K/uL (0.01-0.20) 10/17/25 06:56 PT 17.2 Seconds (9.0-12.0) H 10/17/25 02:31 INR 1.7 (0.9-1.1) H 10/17/25 02:31 VBG pH 7.32 (7.36-7.41) L 10/17/25 06:56 VBG pCO2 61 mmHg (38-50) H 10/17/25 06:56 VBG pO2 76 mmHg 10/17/25 06:56 VBG HCO3 31 mmol/L 10/17/25 06:56 VBG O2 Saturation 95.1 % 10/17/25 06:56 VBG Base Excess 3.4 mEq/L 10/17/25 06:56 Sodium 141 mmol/L (136-145) 10/21/25 05:28 Potassium 4.1 mmol/L (3.5-5.1) 10/21/25 05:28 Chloride 98 mmol/L (98-107) 10/21/25 05:28 Carbon Dioxide 33 mmol/L (21-32) H 10/21/25 05:28 Anion Gap 10 (3-11) 10/21/25 05:28 BUN 33 mg/dl (6-23) H 10/21/25 05:28 Creatinine 1.45 mg/dl (0.6-1.2) H 10/21/25 05:28 Est Cr Clr Drug Dosing 64.5 ml/min 10/21/25 05:28 eGFR 44.77 10/21/25 05:28 BUN/Creatinine Ratio 22.8 (10-20) H 10/21/25 05:28 Glucose 99 mg/dl (70-99(Fasting)) 10/21/25 05:28 POC Glucose 108 mg/dl (70-99) H 10/21/25 16:35 Estimat Average Glucose 134 mg/dl 10/17/25 06:51 Hemoglobin A1c 6.3 % (4.5-5.6) H 10/17/25 06:51 Calcium 9.6 mg/dl (8.6-10.3) 10/21/25 05:28 Phosphorus 3.7 mg/dl (2.5-4.9) 10/21/25 05:28 Magnesium 2.1 mg/dl (1.7-2.4) 10/21/25 05:28 Total Bilirubin 1.1 mg/dl (0.2-1.0) H 10/20/25 08:43 Direct Bilirubin 0.3 mg/dl (0-0.2) H 10/20/25 08:43 AST 131 U/L (13-39) H 10/20/25 08:43 ALT 560 U/L (7-52) H 10/20/25 08:43 Alkaline Phosphatase 90 U/L (34-104) 10/20/25 08:43 Troponin I High Sens 170.3 pg/ml (0-14) H* D 10/17/25 18:59 B-Natriuretic Peptide 1110 pg/ml (0-100) H 10/17/25 02:31 Total Protein 6.3 gm/dl (6.0-8.3) 10/20/25 08:43 Albumin 3.9 gm/dl (3.4-5.0) 10/20/25 08:43 Globulin 2.5 gm/dl (2.5-4.0) 10/19/25 05:27 Albumin/Globulin Ratio 1.4 (0.9-2) 10/19/25 05:27 Procalcitonin 0.24 ng/ml (0-0.5) 10/17/25 06:51 TSH 5.082 uIu/ml (0.300-4.500) H 10/17/25 02:31 Free T4 1.48 ng/dl (0.61-1.60) 10/17/25 02:31 Acetaminophen < 3 ug/ml (10-30) L 10/17/25 06:51 Hepatitis A IgM Ab NON-REACTIVE (NON-REACTIVE) 10/17/25 10:13 Hep Bs Antigen Negative (Negative) 10/17/25 10:13 Hep B Core IgM Ab NON-REACTIVE (NON-REACTIVE) 10/17/25 10:13 Hepatitis C Antibody Negative (Negative) 10/17/25 10:13 Impressions Chest X-Ray 10/17/25 02:31 EXAM: XR chest 1V portable CLINICAL HISTORY: Shortness of breath, hypoxia. TECHNIQUE: An X-ray image of the chest is obtained in AP projection. COMPARISON: 08/24/2025 FINDINGS: Pulmonary Parenchyma: Bilateral perihilar pulmonary congestion, with bilateral streaky linear pattern and bilateral lower zone haziness suggestive of parenchymal edema. No pulmonary nodules are identified. Bilateral CP angles blunting, could be due to pleural effusion or pleural thickening. Heart and Mediastinum: Enlarged heart shadow. No mediastinal widening or masses. No hilar or mediastinal lymphadenopathy. Bony Thorax: Bony thorax appears intact without fractures or deformities. Soft Tissues: Soft tissues overlying the chest wall are unremarkable. IMPRESSION: No apparent interval changes. Bilateral signs of pulmonary edema/pulmonary congestion. Cardiomegaly. To be correlated clinically. Electronically signed by Harshad Hagan 10-17-2025 03:41 AM Abdomen Ultrasound 10/17/25 03:57 EXAM: US abdomen limited CLINICAL HISTORY: Abn LFT's. TECHNIQUE: Ultrasound examination of the RUQ was performed. Scanning was performed with the patient in the supine position. The following structures were specifically evaluated: COMPARISON: None available. FINDINGS: Very limited exam due to the patient's body habitus and breathing. Liver: Liver size: 19.8 cm. Liver appears enlarged in size with increased echogenicity, due to fatty liver. Possible Waldemar's lobe No evidence of focal lesions, cysts, or masses. Hepatic vasculature appears normal. MPV: Patent. Gallbladder: Thickened gallbladder wall measuring 1.0cm without hyperemia. Possible pericholecystic fluid visualized. Trace free fluid seen within the RUQ. No obvious stones were visualized. Biliary Tree: CBD: Unable to be clearly visualized due to the patient's body habitus. CBD at janet hepatis measures 0.35 cm. No evidence of choledocholithiasis or biliary obstruction. Unremarkable pancreas. Right Kidney: Right kidney size: 10.2 cm. The right kidney appears normal in size with preserved corticomedullary differentiation. No evidence of hydronephrosis, renal cysts, or masses. IMPRESSION: Ultrasound examination of the Right Upper Quadrant (RUQ): 1. Hepatomegaly with steatosis. 2. Thickened gallbladder wall measuring 1.0 cm without hyperemia. Possible pericholecystic fluid visualized. Trace free fluid seen within the RUQ. No obvious stones were visualized. The findings could represent gall bladder wall edema secondary to ascites, rather than acute cholecystitis. Please correlate with clinical and lab data. RECOMMENDATIONS: Clinical correlation with symptoms and further evaluation as indicated. Electronically signed by Harshad Hagan 10-17-2025 06:37 AM 10/17/25 03:57 US abdomen limited Stat Pending Results Patient Have Any Pending Studies at Discharge: No Discharge Instructions Given to Patient (Per Discharging Provider) Mrs Salazar You were hospitalized for the above listed diagnoses. You are being discharged home with the following medication changes: -STOP taking spirinolactone and potassium for now -STOP taking digoxin Please continue your furosemide 40mg twice a day Please take your medications as prescribed and adhere to fluid restriction recommendations Please ensure follow up with your Family Doctor and Electric Knife Operator It was a pleasure taking care of you. NO DRIVING UNTIL RE-EVALUATED AND ALLOWED BY LION TRAINER. PLEASE FOLLOW UP WITH [facility] IN 1 WEEK. Total Time Total Time Spent Total Time Spent (In Minutes): 60 minutes
== END 2025-10-21 17:15 | disposition home or self-care (01) | DRG 291 ==
LOC: ED 02:13 → SUATTDRO 05:12 → EDINP 05:12 → 2E 11:51